=== PATIENT | female | born 1950 | race Caucasian/White ===

== ENCOUNTER 2020-07-14 14:54 | Outpatient (REF) | payer MEDICARE, OTHER, SELFPAY ==
[2020-07-14 15:58] LABS: Creatinine Urine 128.54 mg/dL; Microalbum/Creatinine Ratio Ur 50.5 ug/mg cr
== END 2020-07-14 14:55 | disposition home or self-care (01) ==
LOC: HO.LNP 14:54
PROVIDERS: Visit Provider Family Medicine
DX: I10 Essential (primary) hypertension (principal); E11.65 Type 2 diabetes mellitus with hyperglycemia
CPT/HCPCS: 82043

== ENCOUNTER 2020-10-04 07:16 | Outpatient (REF) | payer MEDICARE, SELFPAY ==
[2020-10-04 11:06] LABS: Alanine Aminotransferase 48 U/L (0-31); Albumin Level 4.2 g/dL (3.5-5.0); Alkaline Phosphatase 45 U/L (39-117); Anion Gap 13 (12-20); Aspartate Amino Transferase 31 U/L (5-31); Bilirubin Total 0.7 mg/dL (0.0-1.0); Blood Urea Nitrogen 15 mg/dL (9-16); Calcium 9.8 mg/dL (8.4-10.2); Carbon Dioxide 30 mmol/L (22-29); Chloride 101 mmol/L (96-108); Cholesterol 213 mg/dL; Estimated Glomerular Filt Rate > 60; Glucose Fasting 136 mg/dL (60-99); HDL Cholesterol 50 mg/dL; LDL Cholesterol Calculated 123 mg/dl; Potassium 4.3 mmol/L (3.3-5.1); Sodium 140 mmol/L (135-145); Total Protein 7.8 g/dL (6.5-8.0); Triglycerides 201 mg/dL
[2020-10-04 11:29] LABS: TSH reflex Free T4 1.95 uIU/mL (0.32-4.0)
== END 2020-10-04 07:17 | disposition home or self-care (01) ==
LOC: HO.WFDLDS 07:16
PROVIDERS: Visit Provider Family Medicine
DX: Z00.00 Encounter for general adult medical examination without abnormal findings (principal)
CPT/HCPCS: 36415; 80053; 80061; 84443

== ENCOUNTER 2020-12-28 18:09 | Outpatient (REF) | payer MEDICARE, SELFPAY ==
[2020-12-28 18:24] LABS: Glucose Urine UA NEG (NEG); Leukocyte Esterase Urine 3+ (NEG); Nitrite Urine NEG (NEG); Urine Blood NEG (NEG); Urine Ketones NEG (NEG); Urine Protein NEG (NEG-TRACE)
[2020-12-28 18:32] LABS: Appearance Urine CLEAR; Color Urine YELLOW
[2020-12-28 18:35] LABS: RBC Urine 0 /HPF (0); Squamous Epithelial Cell Urine 3+ /LPF
== END 2020-12-28 18:10 | disposition home or self-care (01) ==
LOC: HO.LNP 18:09
PROVIDERS: Visit Provider Family Medicine
DX: N39.0 Urinary tract infection, site not specified (principal)
CPT/HCPCS: 81001; 87086

== ENCOUNTER 2021-04-05 09:25 | Outpatient (REF) | payer MEDICARE, SELFPAY ==
--- NOTE | ~2021-04-05 | MM_ITS ---
EXAMINATION: MM SCREENING DIGITAL BREAST TOMOSYNTHESIS, BILATERAL CLINICAL INFORMATION: Screening. Asymptomatic. The lifetime risk of breast cancer based on the Tyrer-Cuzick Model is 3.2%. COMPARISON: Mammography: April 02, 2018 and studies dating back to November 11, 2009 TECHNIQUE: Digital breast tomosynthesis is performed in both the craniocaudal and mediolateral oblique views along with computer-aided detection (CAD). Synthesized 2D images are generated from the tomosynthesis. FINDINGS: There are scattered areas of fibroglandular density (ACR BI-RADS breast composition Category b). There are no significant masses, abnormal calcifications, or other abnormalities. MM/MM tomosynthesis screening BI IMPRESSION: There are no significant changes from prior study. ASSESSMENT: BI-RADS 1: Negative RECOMMENDATION: Routine annual mammography screening. This patient's information was entered into a reminder system with a target due date for their next mammogram.
== END 2021-04-05 09:26 | disposition home or self-care (01) ==
LOC: HO.MAMMO 09:25
PROVIDERS: Visit Provider Family Medicine
DX: Z12.31 Encounter for screening mammogram for malignant neoplasm of breast (principal)
CPT/HCPCS: 77063; 77067

== ENCOUNTER 2021-11-03 14:26 | Outpatient (REF) | payer MEDICARE, SELFPAY | END 2021-11-03 14:27 | disposition home or self-care (01) | LOC: HO.LNP 14:26 | PROVIDERS: Visit Provider Hospitalist | DX: N39.0 Urinary tract infection, site not specified (principal) | CPT/HCPCS: 87086; 87088; 87186 ==

== ENCOUNTER 2021-12-13 15:49 | Outpatient (REF) | payer MEDICARE, SELFPAY ==
[2021-12-14 10:56] LABS: Appearance Urine HAZY; Color Urine YELLOW; Glucose Urine UA NEG (NEG); Leukocyte Esterase Urine 3+ (NEG); Nitrite Urine NEG (NEG); PH 5.5 (5.0-8.0); Urine Blood 2+ (NEG); Urine Ketones NEG (NEG); Urine Protein NEG (NEG-TRACE)
[2021-12-14 11:11] LABS: Bacteria Urine TRACE /LPF; Squamous Epithelial Cell Urine TRACE /LPF
== END 2021-12-13 15:50 | disposition home or self-care (01) ==
LOC: HO.LAB 15:49
PROVIDERS: Visit Provider Family Medicine
DX: N39.0 Urinary tract infection, site not specified (principal); B96.1 Klebsiella pneumoniae [K. pneumoniae] as the cause of diseases classified elsewhere; Z16.11 Resistance to penicillins
CPT/HCPCS: 81001; 87086; 87088; 87186

== ENCOUNTER 2022-03-01 09:38 | Outpatient (REF) | payer MEDICARE, SELFPAY ==
[2022-03-01 11:26] LABS: Hematocrit 39.9 % (37.0-47.0); Hemoglobin 13.6 g/dl (12.0-16.0); Mean Corpuscular HGB Conc 34.1 g/dl (31.0-35.0); Mean Corpuscular Hemoglobin 30.4 pg (27.0-33.0); Mean Corpuscular Volume 89.1 fL (80.0-98.0); Platelet Count 190 X10*3/uL (160-400); Red Blood Count 4.48 X10*6/uL (4.20-5.50); Red Cell Distribution Width 13.2 % (11.0-16.0); White Blood Count 5.5 X10*3/uL (4.8-10.8)
[2022-03-01 11:38] LABS: Estimated Average Glucose 134 mg/dL; Hemoglobin A1c % 6.3 %
[2022-03-01 12:01] LABS: TSH reflex Free T4 1.47 uIU/mL (0.32-4.0)
[2022-03-01 12:05] LABS: Alanine Aminotransferase 68 U/L (0-31); Alkaline Phosphatase 43 U/L (39-117); Anion Gap 14 (12-20); Aspartate Amino Transferase 39 U/L (5-31); Bilirubin Total 0.4 mg/dL (0.0-1.0); Blood Urea Nitrogen 14 mg/dL (9-16); Calcium 9.5 mg/dL (8.4-10.2); Carbon Dioxide 28 mmol/L (22-29); Chloride 101 mmol/L (96-108); Cholesterol 203 mg/dL; Estimated Glomerular Filt Rate > 60; Glucose Fasting 148 mg/dL (60-99); HDL Cholesterol 49 mg/dL; LDL Cholesterol Calculated 121 mg/dl; Sodium 139 mmol/L (135-145); Total Protein 7.6 g/dL (6.5-8.0); Triglycerides 165 mg/dL
== END 2022-03-01 09:39 | disposition home or self-care (01) ==
LOC: HO.WFDLDS 09:38
PROVIDERS: Visit Provider Hospitalist
DX: Z00.00 Encounter for general adult medical examination without abnormal findings (principal); E11.9 Type 2 diabetes mellitus without complications
CPT/HCPCS: 36415; 80053; 80061; 83036; 84443; 85027

== ENCOUNTER 2022-03-30 11:57 | Outpatient (REF) | payer MEDICARE, SELFPAY ==
[2022-04-02 03:17] LABS: TS Negative Control Passed; TS Panel A 0; TS Panel B 0; TS Positive Control Passed; TSpotTB Negative (Negative)
== END 2022-03-30 11:58 | disposition home or self-care (01) ==
LOC: HO.WFDLDS 11:57
PROVIDERS: Visit Provider Dermatology
DX: Z11.1 Encounter for screening for respiratory tuberculosis (principal); L40.0 Psoriasis vulgaris
CPT/HCPCS: 36415; 86481

== ENCOUNTER 2022-05-29 | Outpatient (REF) | payer MEDICARE, SELFPAY ==
[2022-05-30 13:10] LABS: Influenza A PCR NEGATIVE (Negative); Influenza B PCR NEGATIVE (Negative); Resp Syncy Virus RNA Qual PCR NEGATIVE (Negative); SARS COV2 PCR INHOUSE NEGATIVE (Negative)
== END 2022-05-29 00:01 | disposition home or self-care (01) ==
LOC: HO.LNP
PROVIDERS: Visit Provider Family Medicine
DX: Z20.822 Contact with and (suspected) exposure to COVID-19 (principal)
CPT/HCPCS: 0241U

== ENCOUNTER 2022-06-16 11:49 | Outpatient (REF) | payer MEDICARE, SELFPAY ==
[2022-06-16 14:47] LABS: Appearance Urine Cloudy; Color Urine Yellow; Glucose Urine UA Negative (Negative); Leukocyte Esterase Urine Large (3+) (Negative); Nitrite Urine Negative (Negative); PH 5.5 (5.0-9.0); Specific Gravity - Urine 1.015 (1.005-1.025); UMIC TRIGGER UA YES; Urine Blood Trace (Negative); Urine Ketones Negative (Negative); Urine Protein Negative (Neg-Trace)
[2022-06-16 14:52] LABS: Bacteria Urine None Seen (None Seen); Hyaline Casts Urine 0-2 /LPF (0-2); RBC Urine 0-2 /HPF (0-2); WBC Urine >50 /HPF (0-5)
== END 2022-06-16 11:50 | disposition home or self-care (01) ==
LOC: HO.LAB 11:49
PROVIDERS: Visit Provider Family Medicine
DX: R30.0 Dysuria (principal)
CPT/HCPCS: 81001; 87086

== ENCOUNTER 2022-12-07 11:40 | Outpatient (REF) | payer MEDICARE, SELFPAY ==
--- NOTE | ~2022-12-07 | MM_ITS ---
EXAMINATION: MM SCREENING DIGITAL BREAST TOMOSYNTHESIS, BILATERAL CLINICAL INFORMATION: Screening. Asymptomatic. The lifetime risk of breast cancer based on the Tyrer-Cuzick Model is under 5%. COMPARISON: Mammography: 01/03/2021, 04/02/2018, 04/30/2014 TECHNIQUE: Digital breast tomosynthesis is performed in both the craniocaudal and mediolateral oblique views along with computer-aided detection (CAD). Synthesized 2D images are generated from the tomosynthesis. Technologist notes known sebaceous cyst left breast, not of concern by patient history. FINDINGS: There are scattered areas of fibroglandular density (ACR BI-RADS breast composition Category b). There is no significant mass or architectural abnormality or abnormal calcifications. Parenchymal pattern is similar to prior studies. Patient has known 1 cm sebaceous cyst posterior 7:30 left breast by patient history. Margins are circumscribed. No inflammatory changes. No coarsening of the Nba's ligaments. The axilla are unremarkable. MM/MM tomosynthesis screening BI IMPRESSION: No significant changes from prior exam. ASSESSMENT: BI-RADS 2: Benign RECOMMENDATION: Routine annual mammography screening. This patient's information was entered into a reminder system with a target due date for their next mammogram.
== END 2022-12-07 11:41 | disposition home or self-care (01) ==
LOC: HO.MAMMO 11:40
PROVIDERS: PCP Family Medicine; Visit Provider Family Medicine
DX: Z12.31 Encounter for screening mammogram for malignant neoplasm of breast (principal)
CPT/HCPCS: 77063; 77067

== ENCOUNTER 2023-05-01 14:54 | Outpatient (AMB) | payer MEDICARE, SELFPAY ==
--- NOTE | 2023-05-01 14:57 | A.OFFPC_ITS ---
Vital Signs 05/01/23 14:58 Height 5 ft 2 in Weight 158 lb 2 oz BMI 28.9 BP 140/82 H Blood Pressure Location Lt brachial Position Sitting Pulse 75 Pulse Source Pulse Oximeter Pulse Oximetry (%) 95 Oxygen Delivery Method Room Air Intake Visit Reasons: trans care from [facility] bp Intake Note: Patient is here to transfer care from [facility]. She would like to follow up on her health. Allergies Sulfacetamide Sodium Allergy (Unknown, Uncoded 05/01/23 15:03) skin burn when put on face Medication List - Last Reconciled 05/01/23 by Franki Chappell MD amlodipine 5 mg PO DAILY bisoprolol-hydrochlorothiazide 2.5-6.25 mg 2 tabs PO DAILY 90 days cyclosporine 0.05% (Restasis) 1 drp ophthalmic (eye) Q12H estradiol 10 mcg vaginal DAILY fesoterodine ER 4 mg PO DAILY fluconazole (Diflucan) 150 mg PO Q3D 2 doses fluticasone propionate 50 mcg/actuation (Flonase Allergy Relief) 1 spray intranasal .nightly lisinopril 20 mg PO DAILY multivitamin (Daily Multi-Vitamin tablet) 1 tab PO DAILY naproxen sodium (Aleve) PO DAILY nystatin 1 appl topical DAILY secukinumab (Cosentyx) 300 mg subcut Q4W Tobacco use date assessed: 05/01/23 Fall risk assessment: No Falls in past year Last assessed Fall Risk: 05/01/23 Dental Screening Dental Screen Date: 05/01/23 Did you have a dental visit in the last 12 months?: Yes Did you have a dental problem in the last 6 months where you did not have access to dental care?: No Was dental information given to patient?: Patient has dentist HPI trans care from [facility]/ [facility] bp HPI Details New patient/Transfer of Care Prior PCP:?Ludy Amador Last office visit/CPE: Acute issue(s): Cough -Pt states she is not feeling well. Diabetes -A1c today 6.7%. PMHx: Diabetes, Hypertension, Hyperlipidemia, IBS, Psoriasis SurgHx: Hysterectomy, GB SocHx: Quit cigs 2016. EtOH none. [facility]LY [facility] Medical History Diabetes type 2, uncontrolled HTN (hypertension) Surgical History History of hysterectomy History of oral surgery Family History Father Myocardial infarction Hypertension Mother Hypertension CVD (cardiovascular disease) Stroke TIA (transient ischemic attack) Social History Housing: House Alcohol intake: never Patient Tobacco Use Status: Former Tobacco user e-Cigarette/Vaping Use: Never Used Second Hand Smoke Exposure: No service: No Current occupational status: retired Current occupational exposures/hazards: No Cognitive needs: No Hearing needs: No Vision needs: No Questionnaire PHQ-9 Over the last 2 weeks, how often have you been bothered by any of the following problems? 1. Little interest or pleasure in doing things: not at all 2. Feeling down, depressed, or hopeless: not at all 3. Trouble falling or staying asleep, or sleeping too much: nearly every day 4. Feeling tired or having little energy: nearly every day 5. Poor appetite or overeating: nearly every day 6. Feeling bad about yourself - or that you are a failure or have let yourself or your family down: not at all 7. Trouble concentrating on things, such as reading the newspaper or watching television: not at all 8. Moving or speaking so slowly that other people could have noticed. Or the opposite - being so fidgety or restless that you have been moving around a lot more than usual: not at all 9. Thoughts that you would be better off or of hurting yourself in some way: not at all Total score: 9 Depression Screening Interpretation: Positive Depression Screening Done: Yes Source: Developed by Drs. Bryan Saldivar, Maddy Hilton, Nikos Brito and colleagues, with an educational harvey from [employer]. Thrive Questionnaire Date Thrive assessed: 05/01/23 I am a: Patient What is your living situation today?: I have a steady place to live Within the past 12 months, did the food you bought not last and you didn't have the money to get more?: Never true Within the past 12 months, did you worry whether your food would run out before you got money to buy more?: Never true Do you have trouble paying for medicines?: No Do you have trouble getting transportation to medical appointments?: No Do you have trouble paying your heating and electricity bill?: No Do you have trouble taking care of your child, family member or friend?: No Do you have trouble with day-to-day activities such as bathing, preparing meals, shopping, managing finances, etc.?: No Are you currently unemployed and looking for a job?: No Are you interested in more education?: No AUDIT C Alcohol Use Questionnaire (AUDIT-C) 1. How often do you have a drink containing alcohol?: Never 3. How often do you have six or more drinks on one occasion?: Never Total Score: 0 SABINO-7 AMB Questionnaire SABINO-7 Date SABINO - 7 assessed: 05/01/23 Feeling nervous, anxious, or on edge: 0 = Not at all Not being able to stop or control worryin = Not at all Worrying too much about different things: 0 = Not at all Trouble relaxin = Not at all Being so restless that it is hard to sit still: 0 = Not at all Becoming easily annoyed or irritable: 0 = Not at all Feeling afraid as if something awful might happen: 0 = Not at all Total SABINO-7 score (0-4 normal; 5-9 mild; 10-14 moderate; 15-21 severe): 0 Source: Developed by Drs. Bryan Saldivar, Maddy Hilton, Nikos Brito and colleagues, with an educational harvey from [employer]. Review of Systems Const Denies chills, Denies fatigue, Denies fever(s), Denies headache(s) and Denies weakness ENT Denies dizziness and Denies headache(s) Card Denies chest pain, Denies lightheadedness, Denies dyspnea and Denies other (Palpitations) Resp Denies cough, Denies dyspnea, Denies wheezing and Denies other ( shortness of breath) Musc Denies numbness and Denies tingling Neuro Denies dizziness, Denies headache(s), Denies numbness, Denies tingling, Denies paresthesias and Denies weakness Psych Denies anxiety and Denies depression Endo Denies fatigue Aller/Immun Denies wheezing Physical exam (Primary Care) Vital Signs: Last Vital Signs Pulse 75 05/01/23 14:58 BP 140/82 H 05/01/23 14:58 Pulse Ox 95 05/01/23 14:58 Oxygen Delivery Method Room Air 05/01/23 14:58 BMI result Body Mass Index 28.9 Tobacco/Smoking Status: Tobacco use Status Tobacco use date assessed 05/01/23 05/01/23 15:07 Patient Tobacco Use Status Former Tobacco user 05/01/23 15:01 e-Cigarette/Vaping Use Never Used 05/01/23 15:01 PHQ-9: PHQ-9 Score PHQ-9: Total score 9 05/01/23 15:13 Depression Screening Interpretation: Positive Thrive Assessment: Date of Thrive Assessment Date Thrive assessed 05/01/23 05/01/23 15:13 Const General: no acute distress and well developed Nutritional Appearance: well nourished Orientation/consciousness: patient oriented x3 HENMT Head: Yes normocephalic and Yes atraumatic Eyes General: appearance normal, both eyes and all related structures Pupils: Equal, round and reactive pupils present EOM: EOMs intact bilaterally Resp Other: Significant rhonchi and wheezing with pops and squeaks in lung kilpatrick bilaterally Auscultation: not clear to auscultation bilaterally Cardio Rate: regular rate Rhythm: regular rhythm Heart sounds: S1 normal heart sound present, S2 normal heart sound present, no gallops, no murmurs and no rubs Neuro General: patient oriented x3 and gait normal Cranial nerves: Yes Equal, round and reactive pupils present Psych Affect: normal affect Results AMB Hemoglobin A1c AMB Hemoglobin A1c 6.7 % Last Edit by Lucero Rosales CMA on 05/01/23 15:26 Assessment and Plan Assessment & Plan (1) Cough: Code(s): R05.9 - Cough, unspecified Plan: Ongoing?severe?cough?and?some?shortness?of?breath. Patient?also?notices?mild?fevers?for?the?past?couple?of?days. Significant?rhonchi?and?wheezing?with?pops?and?squeaks?in?lung?kilpatrick?bilaterall y Concern?for?pneumonia Check?chest?x-ray Start?cephalexin Finish?all?antibiotic?unless?there?is?a?problem.??Call?for?any?problems. We?will?follow-up?by?telemedicine?in?2?weeks?to?ensure?she?is?doing?better. (2) Diabetes type 2, controlled: Code(s): E11.9 - Type 2 diabetes mellitus without complications Plan: A1c?6.7%. Diet-controlled. Goal?is?less?than?7.0% Continue?diet?control (3) Abnormal lung sounds: Code(s): R09.89 - Other specified symptoms and signs involving the circulatory and respiratory systems Plan: As?above,?check?chest?x-ray (4) Essential hypertension: Code(s): I10 - Essential (primary) hypertension Plan: Blood?pressure?is?a?little?elevated?but?patient?is?ill We?will?follow?this (5) Hyperlipidemia: Code(s): E78.5 - Hyperlipidemia, unspecified Plan: Check?lipids?with?next?blood?draw Orders: Orders Comprehensive [place]. Panel Fast Today Z00.00 - Encounter for general adult medical examination without abnormal findings Complete Blood Count Auto Diff Today Z00.00 - Encounter for general adult medical examination without abnormal findings Lipid Panel Today Z00.00 - Encounter for general adult medical examination without abnormal findings UA and rflx microscopic Today Z00.00 - Encounter for general adult medical examination without abnormal findings TSH reflex Free T4 Today Z00.00 - Encounter for general adult medical examination without abnormal findings Vitamin D 25-OH Total Today E55.9 - Vitamin D deficiency, unspecified AMB Hemoglobin A1c Today Z13.9 - Encounter for screening, unspecified XR chest 2V Today R05.9 - Cough, unspecified, R09.89 - Other specified symptoms and signs involving the circulatory and respiratory systems Microalbumin, Random (w Creat) Today I10 - Essential (primary) hypertension Vitamin B12 and Folate Today E53.8 - Deficiency of other specified B group vitamins Medications: New cephalexin 500 mg PO Q12H 10 days 20 caps 0RF albuterol sulfate 90 mcg/actuation (ProAir HFA) 2 puffs inhalation Q4-6H 30 days PRN 8.5 grams 0RF shortness of breath or wheezing Coding Level of Care Code Est Pt Level 4 (11919) Diagnoses Cough R05.9 Diabetes type 2, controlled E11.9 Abnormal lung sounds R09.89 Essential hypertension I10 Hyperlipidemia E78.5
[2023-05-01 14:58] VITALS: BP 140/82; PULSE 75; O2SAT 95; BMI 28.9
== END 2023-05-01 15:46 | disposition home or self-care (01) ==
PROVIDERS: PCP Family Medicine; Visit Provider Family Medicine
DX: R05.9 Cough, unspecified (principal); E11.9 Type 2 diabetes mellitus without complications; R09.89 Other specified symptoms and signs involving the circulatory and respiratory systems; I10 Essential (primary) hypertension; E78.5 Hyperlipidemia, unspecified
CPT/HCPCS: 83036; 99214

== ENCOUNTER 2023-05-02 09:50 | Outpatient (REF) | payer MEDICARE, SELFPAY ==
--- NOTE | ~2023-05-02 | XR_ITS ---
EXAMINATION: XR CHEST CLINICAL INFORMATION: Cough COMPARISON: 01/26/2009, report only TECHNIQUE: 2 views of the chest were obtained. FINDINGS: No significant abnormality is noted involving the heart, lungs, mediastinum, bony thorax or soft tissues. Tiny calcification present in the right supraspinatus tendon. Degenerative changes are noted throughout the spine with scoliosis to the left. Surgical clips present in the gallbladder fossa. Minimal left basilar atelectasis. XR/XR chest 2V IMPRESSION: No acute intrathoracic disease. Incidental findings as described above.
== END 2023-05-02 09:51 | disposition home or self-care (01) ==
LOC: HO.XRAY 09:50
PROVIDERS: PCP Family Medicine; Visit Provider Family Medicine
DX: R05.9 Cough, unspecified (principal); R09.89 Other specified symptoms and signs involving the circulatory and respiratory systems
CPT/HCPCS: 71046

== ENCOUNTER 2023-05-04 13:57 | Outpatient (AMB) | payer MEDICARE, SELFPAY ==
--- NOTE | 2023-05-04 13:50 | A.OFFPC_ITS ---
Intake Visit Reasons: follow up xrays Allergies Sulfacetamide Sodium Allergy (Unknown, Uncoded 05/04/23 13:52) skin burn when put on face Tobacco use date assessed: 05/01/23 HPI follow up xrays HPI Details 72 y/o female presents to f/u chest x-ra y via telemedicine. Pt had a cough with abnormal lung sounds. Chest x-ray 05/02/23. Reviewed labs with pt. Chest x-ray showed no acute intrathoracic disease. FORMERLY [facility] Medical History Diabetes type 2, uncontrolled HTN (hypertension) Surgical History History of hysterectomy History of oral surgery Family History Father Myocardial infarction Hypertension Mother Hypertension CVD (cardiovascular disease) Stroke TIA (transient ischemic attack) Social History Housing: House Alcohol intake: never Patient Tobacco Use Status: Former Tobacco user e-Cigarette/Vaping Use: Never Used Second Hand Smoke Exposure: No service: No Current occupational status: retired Current occupational exposures/hazards: No Cognitive needs: No Hearing needs: No Vision needs: No Questionnaire Thrive Questionnaire Date Thrive assessed: 05/01/23 SABINO-7 AMB Questionnaire SABINO-7 Date SABINO - 7 assessed: 05/01/23 Source: Developed by Drs. Bryan Saldivar, Maddy Hilton, Nikos Brito and colleagues, with an educational harvey from [employer]. Review of Systems Const Denies chills, Denies fatigue, Denies fever(s), Denies headache(s) and Denies weakness ENT Denies dizziness and Denies headache(s) Card Denies dyspnea Resp Denies cough, Denies dyspnea, Denies wheezing and Denies other (shortness of breath) Musc Denies numbness and Denies tingling Neuro Denies dizziness, Denies headache(s), Denies numbness, Denies tingling and Denies weakness Psych Denies anxiety and Denies depression Endo Denies fatigue Aller/Immun Denies wheezing Physical exam (Primary Care) Tobacco/Smoking Status: Tobacco use Status Tobacco use date assessed 05/01/23 05/04/23 13:56 Patient Tobacco Use Status Former Tobacco user 05/04/23 13:56 e-Cigarette/Vaping Use Never Used 05/04/23 13:56 Thrive Assessment: Date of Thrive Assessment Date Thrive assessed 05/01/23 05/04/23 13:56 Telehealth Telehealth Location of provider rendering services: practice address Location of patient: address on file Patient Identification confirmed using: Name, : Yes Telehealth method: voice only Patient verbally consented to treatment: Yes Patient verbally consented to billing insurance company: Yes Patient informed of any privacy concerns related to visit: Yes Minutes spent on Phone/Video with Pt.: 11 Assessment and Plan Assessment & Plan (1) Cough: Code(s): R05.9 - Cough, unspecified Plan: Ongoing?co ugh?and?patient?had?significantly?abnormal?lung?sounds?consistent?with?pneumonia . Chest?x-ray?did?not?reveal?pneumonia However,?giving?patient's?symptoms?and?that?she?has?begun?feeling?a?small?amount ?better?after?3?days?on?cephalexin,?will?continue?this. Likely?occult?pneumonia?and?I?recommend?she?continue?antibiotic?until?complete. Had?sent?prednisone?as?well?and?she?will?begin?this. Continue?albuterol?inhaler?while?symptomatic She?will?get?a?chest?x-ray?at?the?end?of?her?antibiotics?course Will?follow-up?with?her?in?10-14?days. (2) Abnormal lung sounds: Code(s): R09.89 - Other specified symptoms and signs involving the circulatory and respiratory systems Plan: As?above Orders: Orders XR chest 2V Today R05.9 - Cough, unspecified Coding Level of Care Code Tele Est Pt Level 2 (31016) Diagnoses Cough R05.9 Abnormal lung sounds R09.89
== END 2023-05-04 15:54 | disposition home or self-care (01) ==
LOC: HO.HMGFM 13:57
PROVIDERS: PCP Family Medicine; Visit Provider Family Medicine
DX: R05.9 Cough, unspecified (principal); R09.89 Other specified symptoms and signs involving the circulatory and respiratory systems
CPT/HCPCS: 99442

== ENCOUNTER 2023-05-11 09:30 | Outpatient (REF) | payer MEDICARE, SELFPAY ==
--- NOTE | ~2023-05-11 | XR_ITS ---
EXAMINATION: XR CHEST CLINICAL INFORMATION: Cough COMPARISON: 05/02/2023 TECHNIQUE: 2 views of the chest were obtained. FINDINGS: The lungs are well-inflated. There is no gross pneumothorax. Heart size within normal limits. Advanced multilevel degenerative changes in the thoracic spine. Surgical clips in the right upper quadrant of the abdomen. No pleural effusion. No gross focal consolidation to suggest pneumonia. XR/XR chest 2V IMPRESSION: No evidence of pneumonia.
== END 2023-05-11 09:31 | disposition home or self-care (01) ==
LOC: HO.XRAY 09:30
PROVIDERS: PCP Family Medicine; Visit Provider Family Medicine
DX: R05.9 Cough, unspecified (principal)
CPT/HCPCS: 71046

== ENCOUNTER 2023-05-15 14:05 | Outpatient (AMB) | payer MEDICARE, SELFPAY ==
--- NOTE | 2023-05-15 14:01 | A.OFFPC_ITS ---
Intake Visit Reasons: [phone], Follow-up?occult?pneumonia Intake Note: Patient is following up regarding a chest xray from last week. Patient reports she is feeling better, using her inhaler still and has a productive cough. 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 Feeling?much?better.??Still?coughing?and?co ugh?is?rather?productive?after?albuterol?which?is?also?helping. [facility] Medical History Diabetes type 2, uncontrolled HTN (hypertension) Surgical History History of hysterectomy History of oral surgery Family History Father Myocardial infarction Hypertension Mother Hypertension CVD (cardiovascular disease) Stroke TIA (transient ischemic attack) Housing: House Alcohol intake: never Patient Tobacco Use Status: Former Tobacco user e-Cigarette/Vaping Use: Never Used Second Hand Smoke Exposure: No service: No Current occupational status: retired Current occupational exposures/hazards: No Cognitive needs: No Hearing needs: No Vision needs: No Questionnaire Thrive Questionnaire Date Thrive assessed: 05/01/23 SABINO-7 AMB Questionnaire SABINO-7 Date SABINO - 7 assessed: 05/01/23 Source: Developed by Drs. Bryan Saldivar, Maddy Hilton, Nikos Brito and colleagues, with an educational harvey from [employer]. Review of Systems Const Denies chills, Denies fatigue, Denies fever(s), Denies headache(s) and Denies weakness ENT Denies dizziness and Denies headache(s) Card Denies chest pain, Denies lightheadedness, Denies dyspnea and Denies other (Palpitations) Resp Reports cough (Productive?cough, improving), Denies dyspnea, Denies wheezing and Denies other ( shortness of breath) Musc Denies numbness and Denies tingling Neuro Denies dizziness, Denies headache(s), Denies numbness, Denies tingling, Denies paresthesias and Denies weakness Psych Denies anxiety and Denies depression Endo Denies fatigue Aller/Immun Denies wheezing Physical exam (Primary Care) Tobacco/Smoking Status: Tobacco use Status Tobacco use date assessed 05/01/23 05/15/23 14:05 Patient Tobacco Use Status Former Tobacco user 05/15/23 14:05 e-Cigarette/Vaping Use Never Used 05/15/23 14:05 Thrive Assessment: Date of Thrive Assessment Date Thrive assessed 05/01/23 05/15/23 14:05 Const Other: Telemedicine?encounter.??Audio?only.??No?exam Telehealth Telehealth Location of provider rendering services: practice address Location of patient: address on file Patient Identification confirmed using: Name, : Yes Telehealth method: voice only Patient verbally consented to treatment: Yes Patient verbally consented to billing insurance company: Yes Patient informed of any privacy concerns related to visit: Yes Minutes spent on Phone/Video with Pt.: 6 Assessment and Plan Assessment & Plan (1) Cough: Code(s): R05.9 - Cough, unspecified Plan: Improving?after?course?of?antibiotic?and?prednisone Probable?severe?bronchitis?but?possible?occult?pneumonia She?can?continue?albuterol?inhaler?for?now?as?she?is?improving. Call?or?return?to?office?if?worsens. Coding Level of Care Code Tele Est Pt Level 2 (75888) Diagnoses Cough R05.9
== END 2023-05-15 15:00 | disposition home or self-care (01) ==
PROVIDERS: PCP Family Medicine; Visit Provider Family Medicine
DX: R05.9 Cough, unspecified (principal)
CPT/HCPCS: 99441

== ENCOUNTER 2023-06-13 08:43 | Outpatient (AMB) | payer MEDICARE, SELFPAY ==
[2023-06-13 09:03] VITALS: BP 130/72; PULSE 68; O2SAT 95; BMI 28.9
--- NOTE | 2023-06-13 09:03 | AM.OFFWIN_ITS ---
Intake Vital Signs 06/13/23 09:03 Height 5 ft 2 in Weight 158 lb 4 oz BMI 28.9 BP 130/72 Blood Pressure Location Lt brachial Position Sitting Pulse 68 Pulse Source Pulse Oximeter Pulse Oximetry (%) 95 Oxygen Delivery Method Room Air Intake Visit Reasons: ongoing cough/phlem Intake Note: Patient is here today for coughing, wheezing, feeling worse, no fever or chills, no appetite. 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 Required: No Head Grinder: Not Required per policy Accompanied by: Self / Same As Patient Allergies clindamycin Allergy (Mild, Uncoded 06/13/23 09:48) Diarrhea Sulfacetamide Sodium Allergy (Unknown, Uncoded 06/13/23 09:04) skin burn when put on face Medication List - Last Reconciled 06/13/23 by Lucrecia Sanchez, [facility]- albuterol sulfate 90 mcg/actuation (ProAir HFA) 2 puffs inhalation Q4-6H PRN 30 days amlodipine 5 mg PO DAILY bisoprolol-hydrochlorothiazide 2.5-6.25 mg 2 tabs PO DAILY 90 days cyclosporine 0.05% (Restasis) 1 drp ophthalmic (eye) Q12H fesoterodine ER 4 mg PO DAILY fluticasone propionate 50 mcg/actuation (Flonase Allergy Relief) 1 spray intranasal .nightly lisinopril 20 mg PO DAILY multivitamin (Daily Multi-Vitamin tablet) 1 tab PO DAILY secukinumab (Cosentyx) 300 mg subcut Q4W Do you need a note to return to daycare/school/sports/work: No HPI HPI Comments History of Present Illness Details Here today w/ continued cough since 03/2023 was tx for presumed PNA/bronchitis Records reviewed Cough is productive, with lots of phlegm, blood tinged sputum last night. using albuterol however this is causing dry mouth; doesnt feel like this is really working well + wt loss, 5 lbs since illness no appetite former smoker no lung ca survellience denies fever, chills, ear pain, sore throat. PFSH Medical History Diabetes type 2, uncontrolled HTN (hypertension) Surgical History History of hysterectomy History of oral surgery Family History Father Myocardial infarction Hypertension Mother Hypertension CVD (cardiovascular disease) Stroke TIA (transient ischemic attack) Social History Housing: House Alcohol intake: never Patient Tobacco Use Status: Former Tobacco user e-Cigarette/Vaping Use: Never Used Second Hand Smoke Exposure: No service: No Current occupational status: retired Current occupational exposures/hazards: No Cognitive needs: No Hearing needs: No Vision needs: No Review of Systems Const All systems reviewed & are unremarkable except as noted in HPI and below Physical Exam Vital Signs: Last Vital Signs Pulse 68 06/13/23 09:03 BP 130/72 06/13/23 09:03 Pulse Ox 95 06/13/23 09:03 Oxygen Delivery Method Room Air 06/13/23 09:03 BMI result Body Mass Index 28.9 Const Other: awake alert mildly ill appearing conjuntiva injected bilat TM bulging with loss of landmarks on L, TM intact w/ mild serous effusion on R Sinuses nontender bilat, turbinates pale, mildly edematous on L No AC adenopathy RRR LS dim, ins/exp wheezes throughout; after duoneb inhaler, tolerated well, LS with increased airflow throughout, reports feels her breathing is better; cont w/ ins/exp wheeze throughout albeit better than before Office Procedures Nebulizer Treatment Nebulizer Treatment 28814-Brablafkd/MDI RX initial, or Nebulizer Subsequent Treatment Office Meds ipratropium 0.5 mg-albuterol 3 mg (2.5 mg base)/3 mL nebulization valerien Performing Provider: CRAIG Thomas Performing Location: [facility] Administered by: CRAIG Thomas on 06/13/23 10:24 Dose Route Admin Location Dispensed Lot Number Expiration Date NDC Procedures Analyst 3 mL inhalation 3 mL [id number] 03/25/24 09441-034-07 [employer] Assessment & Plan Assessment & Plan (1) Wheezing: Code(s): R06.2 - Wheezing Plan: . (2) Abnormal lung sounds: Code(s): R09.89 - Other specified symptoms and signs involving the circulatory and respiratory systems Plan: . (3) Cough: Code(s): R05.9 - Cough, unspecified Qualifiers: Cough type: chronic Qualified Code(s): R05.3 - Chronic cough Plan: . (4) Otitis media, left: Code(s): H66.92 - Otitis media, unspecified, left ear Qualifiers: Chronicity: acute Recurrence: non-recurrent Otitis media type: suppurative Spontaneous tympanic membrane rupture: without spontaneous rupture Qualified Code(s): H66.002 - Acute suppurative otitis media without spontaneous rupture of ear drum, left ear Plan: cont flonase (5) Cough with hemoptysis: Code(s): R04.2 - Hemoptysis Plan: in the setting of illness since 03/2023; blood tinged; former smoker; admit wt loss in the setting of this illness. if cont and/or wt loss cont, rec further assessment. Orders: Orders AMB Nebulizer Treatment Today R06.2 - Wheezing Medications: New budesonide 90 mcg/actuation 1 inh inhalation Q12H 1 month 1 ea 0RF Patient Instructions: start pulmicort BID, rinse mouth after use, use alb PRN. f/u with PCP as scheduled to see if this is working. your lung sounds improved greatly after the duoneb in the office Coding Level of Care Code Est Pt Level 4 (59768) Diagnoses Wheezing R06.2 Abnormal lung sounds R09.89 Chronic cough R05.3 Cough type: chronic Non-recurrent acute suppurative otitis media of left ear without spontaneous rupture of tympanic membrane H66.002 Chronicity: acute Recurrence: non-recurrent Otitis media type: suppurative Spontaneous tympanic membrane rupture: without spontaneous rupture Cough with hemoptysis R04.2 CPT Codes Nebulizer Treatment - Nebulizer Treatment, initial or subsequent: 54915- Nebulizer/MDI RX initial, or Nebulizer Subsequent Treatment ([id number])
== END 2023-06-13 11:31 | disposition home or self-care (01) ==
PROVIDERS: PCP Family Medicine; Visit Provider Nurse Practitioner Family
DX: R06.2 Wheezing (principal); R09.89 Other specified symptoms and signs involving the circulatory and respiratory systems; R05.3 Chronic cough; H66.002 Acute suppurative otitis media without spontaneous rupture of ear drum, left ear; R04.2 Hemoptysis
CPT/HCPCS: 94640; 99214; J7620

== ENCOUNTER 2023-06-13 10:26 | Outpatient (REF) | payer MEDICARE, SELFPAY ==
[2023-06-13 13:20] LABS: MANUAL DIFF FLAG NO
[2023-06-13 13:31] LABS: Basophils Absolute Auto 0.1 X10*3/uL (0.0-0.2); Basophils Percent Auto 0.6 % (0-2); Eosinophils Absolute Auto 0.1 X10*3/uL (0.0-0.4); Eosinophils Percent Auto 1.3 % (0-4); Hematocrit 43.5 % (37.0-47.0); Hemoglobin 14.4 g/dl (12.0-16.0); Imm Gran Abs Auto 0.02 X10*3/uL (0.00-0.03); Imm Gran Pct Auto 0.2 % (0.0-0.4); Lymphocytes Absolute Auto 3.3 X10*3/uL (1.2-4.9); Lymphocytes Percent Auto 36.9 % (20-40); Mean Corpuscular HGB Conc 33.1 g/dl (31.0-35.0); Mean Corpuscular Hemoglobin 29.7 pg (27.0-33.0); Mean Corpuscular Volume 89.7 fL (80.0-98.0); Mean Platelet Volume 8.9 fL (9.4-12.3); Monocytes Absolute Auto 0.7 X10*3/uL (0.1-1.2); Monocytes Percent Auto 7.4 % (2-11); Neutrophils Absolute Auto 4.8 x10*3/uL (2.0-8.3); Neutrophils Percent Auto 53.6 % (45-73); Platelet Count 243 X10*3/uL (160-400); Red Blood Count 4.85 X10*6/uL (4.20-5.50); Red Cell Distribution Width 12.6 % (11.0-16.0)
[2023-06-13 13:45] LABS: Appearance Urine Cloudy; Color Urine Yellow; Glucose Urine UA Negative (Negative); Leukocyte Esterase Urine Moderate (2+) (Negative); Nitrite Urine Negative (Negative); PH 6.5 (5.0-9.0); Specific Gravity - Urine 1.015 (1.005-1.025); UMIC TRIGGER UA YES; Urine Blood Negative (Negative); Urine Ketones Negative (Negative); Urine Protein Negative (Neg-Trace)
[2023-06-13 13:51] LABS: Bacteria Urine 3+ (None Seen); Hyaline Casts Urine 0-2 /LPF (0-2); RBC Urine 0-2 /HPF (0-2); WBC Urine >50 /HPF (0-5)
[2023-06-13 13:58] LABS: Alanine Aminotransferase 68 U/L (0-31); Albumin Level 4.2 g/dL (3.5-5.0); Alkaline Phosphatase 51 U/L (39-117); Anion Gap 15 (12-20); Aspartate Amino Transferase 45 U/L (5-31); Bilirubin Total 0.8 mg/dL (0.0-1.0); Blood Urea Nitrogen 11 mg/dL (9-16); Calcium 10.1 mg/dL (8.4-10.2); Carbon Dioxide 29 mmol/L (22-29); Chloride 98 mmol/L (96-108); Cholesterol 209 mg/dL (<200); Estimated Glomerular Filt Rate > 60; Glucose Fasting 142 mg/dL (60-99); HDL Cholesterol 51 mg/dL (>40); LDL Cholesterol Calculated 130 mg/dL (<100); Potassium 3.5 mmol/L (3.3-5.1); Sodium 138 mmol/L (135-145); Total Protein 8.3 g/dL (6.5-8.0); Triglycerides 140 mg/dL (<150)
[2023-06-13 14:00] LABS: Microalbum/Creatinine Ratio Ur 5.1 ug/mg cr (<30)
[2023-06-13 14:16] LABS: TSH reflex Free T4 0.84 uIU/mL (0.32-4.0); Vitamin D 25-OH Total 58.5 ng/mL (>30)
[2023-06-13 14:17] LABS: Folate 12.8 ng/mL (> or = 4.0); Vitamin B12 591 pg/mL (200-900)
== END 2023-06-13 10:27 | disposition home or self-care (01) ==
LOC: HO.WFDLDS 10:26
PROVIDERS: Visit Provider Family Medicine
DX: Z00.00 Encounter for general adult medical examination without abnormal findings (principal); I10 Essential (primary) hypertension; E53.8 Deficiency of other specified B group vitamins; E55.9 Vitamin D deficiency, unspecified
CPT/HCPCS: 36415; 80053; 80061; 81001; 82043; 82306; 82570; 82607; 82746; 84443; 85025

== ENCOUNTER 2023-07-05 13:53 | Outpatient (AMB) | payer MEDICARE, SELFPAY ==
--- NOTE | 2023-07-05 14:02 | MHC.PC.OV ---
Vital Signs 07/05/23 14:06 Height 5 ft 2 in Weight 157 lb 6 oz BMI 28.8 BP 130/60 Blood Pressure Location Lt brachial Pulse 67 Pulse Source Pulse Oximeter Temp 97.6 F Temp Source Oral Pulse Oximetry (%) 97 Oxygen Delivery Method Room Air Intake Visit Reasons: Extended?exam?with?f/u?labs?and?health?maintenance Intake Note: Patient is here for extended exam, and has been sick since March. Allergies clindamycin Allergy (Mild, Uncoded 07/05/23 14:10) Diarrhea Sulfacetamide Sodium Allergy (Unknown, Uncoded 07/05/23 14:10) skin burn when put on face Tobacco use date assessed: 07/05/23 HPI Extended?exam?with?f/u?labs?and?health?maintenance HPI Details 73 y/o female presents for an extended exam with f/u labs and health maintenance. Labs were drawn 06/13/23. Reviewed labs with pt. Elevated fasting glucose of 142. Last A1c 05/01/23 6.7%. She is not on any medications for diabetes. Elevated liver enzymes - AST 45 and ALT 68. TC 209. LDL 130. HDL 51. Blood pressure today 130/60. She is on lisinopril 20mg, amlodipine 5mg, bisoprolol-HCTZ 2.5-6.25mg 2 tabs daily. Pt reports she has been feeling unwell since March, reporting continued cough. [facility] Medical History Diabetes type 2, uncontrolled HTN (hypertension) Surgical History History of hysterectomy History of oral surgery Family History Father Myocardial infarction Hypertension Mother Hypertension CVD (cardiovascular disease) Stroke TIA (transient ischemic attack) Social History Housing: House Alcohol intake: never Patient Tobacco Use Status: Former Tobacco user e-Cigarette/Vaping Use: Never Used Second Hand Smoke Exposure: No service: No Current occupational status: retired Current occupational exposures/hazards: No Cognitive needs: No Hearing needs: No Vision needs: No Questionnaire Thrive Questionnaire Date Thrive assessed: 05/01/23 SABINO-7 AMB Questionnaire SABINO-7 Date SABINO - 7 assessed: 05/01/23 Source: Developed by Drs. Bryan Saldivar, Maddy Hilton, Nikos Brito and colleagues, with an educational harvey from [employer]. Review of Systems Const Denies chills, Denies fatigue, Denies fever(s), Denies headache(s) and Denies weakness Eyes Denies change in vision ENT Denies dizziness, Denies headache(s), Denies hearing loss, Denies nasal congestion, Denies sinus pain, Denies sinus pressure and Denies sore throat Card Denies chest pain, Denies lightheadedness, Denies dyspnea and Denies other (palpitations) Resp Reports cough, Denies dyspnea and Denies wheezing GI Denies abdominal pain, Denies melena, Denies hematochezia, Denies change in bowel habits, Denies dyspepsia and Denies nausea Denies hematuria and Denies dysuria Musc Denies abnormal gait, Denies myalgias, Denies arthralgias, Denies numbness and Denies tingling Skin/Breast Denies rash, Denies unusual bruising and Denies wounds Neuro Denies abnormal gait, Denies dizziness, Denies headache(s), Denies memory loss, Denies numbness, Denies Sensory deficit (Neuro), Denies tingling and Denies weakness Psych Denies anxiety, Denies depression and Denies memory loss Endo Denies cold intolerance, Denies fatigue, Denies heat intolerance, Denies polydipsia and Denies polyuria Alvaro/Lymph Denies easy bleeding and Denies easy bruising Aller/Immun Denies wheezing Physical exam (Primary Care) Vital Signs: Last Vital Signs Temp 97.6 F 07/05/23 14:06 Pulse 67 07/05/23 14:06 BP 130/60 07/05/23 14:06 Pulse Ox 97 07/05/23 14:06 Oxygen Delivery Method Room Air 07/05/23 14:06 BMI result Body Mass Index 28.8 Tobacco/Smoking Status: Tobacco use Status Tobacco use date assessed 07/05/23 07/05/23 14:16 Patient Tobacco Use Status Former Tobacco user 07/05/23 14:03 e-Cigarette/Vaping Use Never Used 07/05/23 14:03 Thrive Assessment: Date of Thrive Assessment Date Thrive assessed 05/01/23 07/05/23 14:03 Const General: no acute distress, well developed, alert and awake Nutritional Appearance: well nourished Orientation/consciousness: patient oriented x3 HENMT Head: Yes normocephalic and Yes atraumatic Ears: hearing grossly normal bilaterally and TM's normal bilaterally General nose exam: Normal external nose present and Normal nares present Mouth: Normal oral and palatal mucosa present and moist mucous membranes Teeth and gingiva: dentition normal Throat: Yes posterior oropharynx normal Eyes General: appearance normal, both eyes and all related structures Pupils: Equal, round and reactive pupils present and Pupil accommodation reflex normal EOM: EOMs intact bilaterally Neck Neck: Yes normal visual inspection, Yes no lymphadenopathy and Yes trachea midline Thyroid: Thyroid normal Carotids: no bruits Lymphatic: no lymphadenopathy noted Chest Chest palpation & inspection: normal inspection of the chest Resp Effort & Inspection: normal respiratory effort Auscultation: clear to auscultation bilaterally Cardio Rate: regular rate Rhythm: regular rhythm Heart sounds: S1 normal heart sound present, S2 normal heart sound present, no gallops, no murmurs and no rubs Bruits: no abdominal aortic bruits and no carotid bruits GI Palpation (GI): No Abdominal aortic bruit present, Soft to palpation, nontender, No hepatosplenomegaly present and No Rebound tenderness present Auscultation: normal bowel sounds General: Yes no CVA tenderness Back/Spine/Pelvis Back: no CVA tenderness Cervical Spine: cervical ROM normal and No Cervical spine tenderness Thoracic/Lumbar Spine: thoraco-lumbar ROM normal, No pain with thoraco-lumbar ROM, No thoracic spinal tenderness and No lumbar spinal tenderness Skin Lesions: no lesions Rashes: no rashes Trauma: no lacerations or abrasions Wounds: no wounds Nails: normal Neuro General: patient oriented x3 Cranial nerves: Yes Equal, round and reactive pupils present Cognition (Neuro): normal cognition Gait exam (Neuro): Normal gait present Motor exam (neuro): 5/5 motor strength present throughout Sensory Exam: No Sensory deficit (Neuro) Deep tendon reflexes (DTR's): Right patellar reflex intensity grade: 2+ and Left patellar reflex intensity grade: 2+ Extrem General: Yes normal to inspection and No edema Psych Appearance: grossly normal Affect: normal affect Attitude: cooperative Thought process: Normal thought process present Assessment and Plan Assessment & Plan (1) Essential hypertension: Code(s): I10 - Essential (primary) hypertension Plan: Blood?pressure?is?fairly?well?controlled.??Goal?is?less?than?140/90 Continue?current?medications (2) Diabetes type 2, controlled: Code(s): E11.9 - Type 2 diabetes mellitus without complications Plan: Patient?had?been?diet?controlled?but?her?blood?pressure?continues?to?rise. A1c?still?below?7.0%?tested?in?April. Will?have?her?return?in?a?couple?of?months?and?follow-up?diabetes Encouraged?diabetic?diet (3) Elevated liver enzymes: Code(s): R74.8 - Abnormal levels of other serum enzymes Plan: Likely?secondary?to?fatty?liver?disorder Encouraged?weight?loss She?has?had?recurrent?elevations?in?her?liver?enzymes.??Checking?ultrasound?with?elastography (4) Cough: Code(s): R05.9 - Cough, unspecified Qualifiers: Cough type: chronic Qualified Code(s): R05.3 - Chronic cough Plan: Ongoing?moderately?severe?cough?and?secretions. Treating?with?Z-Adriano?and?prednisone?for?bronchitis. This?has?been?ongoing?for?several?months.??Referring?her?to?pulmonology (5) Bacteria in urine: Code(s): R82.71 - Bacteriuria Plan: Will?repeat?dip?and?culture.??If?persistent?bacteriuria?and?or?other?abnormality?suggestive?of?UTI,?will?consider?treatment (6) Breast cancer screening by mammogram: Code(s): Z12.31 - Encounter for screening mammogram for malignant neoplasm of breast Plan: Mammogram?in?November?was?negative (7) Screening for colon cancer: Code(s): Z12.11 - Encounter for screening for malignant neoplasm of colon Plan: She?says?she?has?never?had?an?abnormal?colonoscopy. Ordered?Cologuard?test (8) Adult general medical exam: Code(s): Z00.00 - Encounter for general adult medical examination without abnormal findings Plan: 73-year-old?female?presents?for?an?extended?exam Orders: Orders US abdomen rosenthal w elastography Today R74.8 - Abnormal levels of other serum enzymes UA and rflx microscopic Today R82.71 - Bacteriuria AMB Urinalysis Dipstick Today R82.71 - Bacteriuria Referrals Pulmonology Referral R05.3 - Chronic cough Cologuard Test Z12.11 - Encounter for screening for malignant neoplasm of colon, Z12.12 - Encounter for screening for malignant neoplasm of rectum Coding Level of Care Code Est Pt Level 4 (13283) Diagnoses Essential hypertension I10 Diabetes type 2, controlled E11.9 Elevated liver enzymes R74.8 Chronic cough R05.3 Cough type: chronic Bacteria in urine R82.71 Breast cancer screening by mammogram Z12.31 Screening for colon cancer Z12.11 Adult general medical exam Z00.00
[2023-07-05 14:06] VITALS: BP 130/60; PULSE 67; TEMP 36.4; O2SAT 97; BMI 28.8
== END 2023-07-05 15:17 | disposition home or self-care (01) ==
PROVIDERS: PCP Family Medicine; Visit Provider Family Medicine
DX: I10 Essential (primary) hypertension (principal); E11.9 Type 2 diabetes mellitus without complications; R74.8 Abnormal levels of other serum enzymes; R05.3 Chronic cough; R82.71 Bacteriuria; Z12.31 Encounter for screening mammogram for malignant neoplasm of breast; Z12.11 Encounter for screening for malignant neoplasm of colon; Z00.00 Encounter for general adult medical examination without abnormal findings
CPT/HCPCS: 81002; 99214

== ENCOUNTER 2023-07-05 14:53 | Outpatient (REF) | payer MEDICARE, SELFPAY ==
[2023-07-05 18:59] LABS: Appearance Urine Clear; Color Urine Yellow; Glucose Urine UA Negative (Negative); Leukocyte Esterase Urine Large (3+) (Negative); Nitrite Urine Negative (Negative); UMIC TRIGGER UA YES; Urine Blood Negative (Negative); Urine Ketones Negative (Negative); Urine Protein Negative (Neg-Trace)
[2023-07-05 19:01] LABS: Bacteria Urine Trace (None Seen); Hyaline Casts Urine 0-2 /LPF (0-2); RBC Urine 0-2 /HPF (0-2); Squamous Epithelial Cell Urine 0-2 /HPF (0-2); WBC Urine >50 /HPF (0-5)
== END 2023-07-05 14:54 | disposition home or self-care (01) ==
LOC: HO.LAB 14:53
PROVIDERS: Visit Provider Family Medicine
DX: R82.71 Bacteriuria (principal)
CPT/HCPCS: 81001

== ENCOUNTER 2023-07-26 13:57 | Outpatient (AMB) | payer MEDICARE, SELFPAY ==
[2023-07-26 14:07] VITALS: BP 132/78; PULSE 80; O2SAT 98; BMI 30.7
--- NOTE | 2023-07-26 14:07 | A.OFFPC_ITS ---
Vital Signs 07/26/23 14:07 Height 5 ft 2 in Weight 168 lb BMI 30.7 BP 132/78 Blood Pressure Location Lt brachial Position Sitting Pulse 80 Pulse Source Pulse Oximeter Pulse Oximetry (%) 98 Oxygen Delivery Method Room Air Intake Visit Reasons: [facility] Intake Note: Patient is here to follow up on [facility] for fevers. Allergies clindamycin Allergy (Mild, Uncoded 07/26/23 14:08) Diarrhea Sulfacetamide Sodium Allergy (Unknown, Uncoded 07/26/23 14:08) skin burn when put on face Medication List - Last Reconciled 07/26/23 by Franki Chappell MD albuterol sulfate 90 mcg/actuation (ProAir HFA) 2 puffs inhalation Q4-6H PRN 30 days amlodipine 5 mg PO DAILY bisoprolol-hydrochlorothiazide 2.5-6.25 mg 2 tabs PO DAILY 90 days budesonide 90 mcg/actuation 1 inh inhalation Q12H 1 month cyclosporine 0.05% (Restasis) 1 drp ophthalmic (eye) Q12H fesoterodine ER 4 mg PO DAILY fluticasone propionate 50 mcg/actuation (Flonase Allergy Relief) 1 spray intranasal .nightly lisinopril 20 mg PO DAILY multivitamin (Daily Multi-Vitamin tablet) 1 tab PO DAILY prednisone 40 mg (2 x 20 mg) PO DAILY 5 days secukinumab (Cosentyx) 300 mg subcut Q4W Tobacco use date assessed: 07/26/23 Fall risk assessment: No Falls in past year Last assessed Fall Risk: 07/26/23 Dental Screening Dental Screen Date: 07/26/23 HPI [facility] discharge HPI Details 73 y/o female presents to f/u [facility] d ischarge. Had presented for fevers and MRI of lumbar spine to look for spinal epidural abscess. MRI lumbar spine V rad report w/o any concerns for spinal epidural abscess. On whole spinal cord screen there was cord signal abnormality at cervical level with suggestion of MRI of cervical spine. Pt reports she had a significant fever x5 days and was an inpatient for multiple days. Pt reports numbness/tingling of his hands. [facility] Medical History Diabetes type 2, uncontrolled HTN (hypertension) Surgical History History of hysterectomy History of oral surgery Family History Father Myocardial infarction Hypertension Mother Hypertension CVD (cardiovascular disease) Stroke TIA (transient ischemic attack) Social History Housing: House Alcohol intake: never Patient Tobacco Use Status: Former Tobacco user e-Cigarette/Vaping Use: Never Used Second Hand Smoke Exposure: No service: No Current occupational status: retired Current occupational exposures/hazards: No Cognitive needs: No Hearing needs: No Vision needs: No Questionnaire Thrive Questionnaire Date Thrive assessed: 05/01/23 SABINO-7 AMB Questionnaire SABINO-7 Date SABINO - 7 assessed: 05/01/23 Source: Developed by Drs. Bryan Saldivar, Maddy Hilton, Nikos Brito and colleagues, with an educational harvey from [employer]. Review of Systems Const Denies chills, Denies fatigue, Denies fever(s), Denies headache(s) and Denies weakness ENT Denies dizziness and Denies headache(s) Card Denies chest pain, Denies lightheadedness, Denies dyspnea and Denies other (Palpitations) Resp Denies cough, Denies dyspnea, Denies wheezing and Denies other ( shortness of breath) Musc Denies numbness and Denies tingling Neuro Denies dizziness, Denies headache(s), Denies numbness, Denies tingling, Denies paresthesias and Denies weakness Psych Denies anxiety and Denies depression Endo Denies fatigue Aller/Immun Denies wheezing Physical exam (Primary Care) Vital Signs: Last Vital Signs Pulse 80 07/26/23 14:07 BP 132/78 07/26/23 14:07 Pulse Ox 98 07/26/23 14:07 Oxygen Delivery Method Room Air 07/26/23 14:07 BMI result Body Mass Index 30.7 Tobacco/Smoking Status: Tobacco use Status Tobacco use date assessed 07/26/23 07/26/23 14:11 Patient Tobacco Use Status Former Tobacco user 07/26/23 14:11 e-Cigarette/Vaping Use Never Used 07/26/23 14:11 Thrive Assessment: Date of Thrive Assessment Date Thrive assessed 05/01/23 07/26/23 14:11 Const General: no acute distress and well developed Nutritional Appearance: well nourished Orientation/consciousness: patient oriented x3 [facility] Head: Yes normocephalic and Yes atraumatic Eyes General: appearance normal, both eyes and all related structures Pupils: Equal, round and reactive pupils present EOM: EOMs intact bilaterally Resp Effort & Inspection: normal respiratory effort Auscultation: clear to auscultation bilaterally Cardio Rate: regular rate Rhythm: regular rhythm Heart sounds: S1 normal heart sound present, S2 normal heart sound present, no gallops, no murmurs and no rubs Neuro General: patient oriented x3 and gait normal Cranial nerves: Yes Equal, round and reactive pupils present Psych Affect: normal affect Assessment and Plan Assessment & Plan (1) Abnormal MRI, spinal cord: Code(s): R90.89 - Other abnormal findings on diagnostic imaging of central nervous system Plan: Spinal?cord?survey?noted?abnormal?signal?at?cervical?spine. Patient?does?have?complaints?of?numbness?in?bilateral?hands?and?fingers?with?neg ative?Phalen's?testing; does?not?appear?to?be?carpal?tunnel?syndrome. Check?MRI?cervical?spine (2) Abnormal MRI, spinal cord: Code(s): R90.89 - Other abnormal findings on diagnostic imaging of central nervous system (3) Dry mouth: Code(s): R68.2 - Dry mouth, unspecified Plan: Increase?hydration (4) Essential hypertension: Code(s): I10 - Essential (primary) hypertension Plan: Patient?had?been?switched?to ?propranolol?from?her?bisoprolol?hydrochlorothiazide?due?to?hypotension?in?the?h ospital. Patient?had?apparently?been?septic?though?no?source?of?infection?was?identified. Blood?pressure?fairly?well?con trolled?though?she?notes?some?swelling?in?bilateral?feet?and?ankles Will?resume?her?bisoprolol-hydrochlorothiazide She?has?mildly?dry?mouth?and?does?not?like?to?drink?water?but?I?have?encouraged? her?to?do?so. Close?follow-up?next?week?to?evaluate?blood?pressure?then?fluid?status. (5) Numbness and tingling of hand: Code(s): R20.0 - Anesthesia of skin; R20.2 - Paresthesia of skin Plan: Abnormal?signal?seen?on?MRI?at?cervical?region?and?patient?has?numbness?of?bilat eral?hands?without?convincing?testing?for?carpal?tunnel?syndrome. Checking?MRI?cervical?spine?to?evaluate Orders: Orders MR cervical spine wo/w con Today R20.0 - Anesthesia of skin, R20.2 - Paresthesia of skin, R90.89 - Other abnormal findings on diagnostic imaging of central nervous system Coding Level of Care Code Est Pt Level 4 (00491) Diagnoses Abnormal MRI, spinal cord R90.89 Dry mouth R68.2 Essential hypertension I10 Numbness and tingling of hand R20.0; R20.2
== END 2023-07-26 15:40 | disposition home or self-care (01) ==
PROVIDERS: PCP Family Medicine; Visit Provider Family Medicine
DX: R90.89 Other abnormal findings on diagnostic imaging of central nervous system (principal); R68.2 Dry mouth, unspecified; I10 Essential (primary) hypertension; R20.0 Anesthesia of skin; R20.2 Paresthesia of skin
CPT/HCPCS: 99214

== ENCOUNTER 2023-08-03 10:00 | Outpatient (REF) | payer MEDICARE, SELFPAY ==
--- NOTE | ~2023-08-03 | US_ITS ---
EXAMINATION: US ABDOMEN LIMITED WITH LIVER ELASTOGRAPHY CLINICAL INFORMATION: Abnormal LFTs. COMPARISON: None available. TECHNIQUE: Real-time imaging of the abdominal viscera. Noninvasive ultrasound liver fibrosis assessment is performed using Boaz ElastPQ point quantification shear wave elastography (2D-SWE) with a C5-2 MHz transducer. Multiple elastography samples are obtained. FINDINGS: PANCREAS: Visualized entire pancreas slightly echogenic. No focal lesion or enlargement. LIVER: The liver demonstrates normal size, contour and increased echogenicity. No focal lesion seen. There is mild intrahepatic ductal dilatation. The right lobe measures 16.1 cm in length. The left lobe measures 12.9 cm in length. Portal flow is hepatopedal in middle portal vein. Shear wave liver elastography median stiffness is 1.52 m/s (reference: normal median stiffness is 1.3 m/s or less). IQR/median stiffness to assess sampling precision is 0.01 (reference: good quality data set is IQR/median stiffness of 0.15 or less). GALLBLADDER: Normal. The gallbladder is physiologically distended without evidence of stones, sludge, polyps, wall thickening or pericholecystic fluid. COMMON BILE DUCT: Normal in caliber measuring 1.0 cm in diameter. RIGHT KIDNEY: Normal. No hydronephrosis. No renal calculi or focal parenchymal lesions. The kidney measures 10.3 cm in maximum dimension. FREE FLUID: None. US/US abdomen rosenthal w elastography IMPRESSION: 1. Slightly echogenic pancreas without focal lesion seen. 2. Mild hepatic steatosis without focal lesion. 3. Liver Elastography: Median liver stiffness measures 1.5 m/s corresponding to cACLD (ruled out). REFERENCE: Society of Radiologists in Ultrasound Liver Stiffness Thresholds (2020): LIVER STIFFNESS THRESHOLDS: *Liver Stiffness equal or less than 1.3 m/s: High probability of being normal. *Liver Stiffness less than 1.7 m/s: In the absence of other known clinical signs, rules out compensated advanced chronic liver disease. *Liver Stiffness 1.7-2.1 m/s: Suggestive of compensated advanced chronic liver disease but need further test for confirmation. *Liver Stiffness over 2.1 m/s: Rules in compensated advanced chronic liver disease. *Liver Stiffness over 2.4 m/s: Suggestive of clinically significant portal hypertension. QUALITY OF DATA SET: *IQR/Median value equal or less than 0.15 implies a quality data set. *IQR/Median value over 0.15 implies a poor quality data set. SIGNIFICANT CHANGE FROM PRIOR EXAM: Significant change if liver stiffness measurement is 10% or greater from prior exam. OTHER CONSIDERATIONS: The stage of liver fibrosis may be overestimated in the setting of acute hepatitis, liver inflammation, elevated liver function tests, hepatic vascular congestion, obstructive cholestasis, non-fasting state, and infiltrative diseases such as amyloidosis and lymphoma. In some patients with NAFLD, the liver stiffness thresholds for compensated advanced chronic liver disease may be lower. In causes other than viral hepatitis and NAFLD, liver stiffness thresholds are not well established.
== END 2023-08-03 10:01 | disposition home or self-care (01) ==
LOC: HO.US 10:00
PROVIDERS: PCP Family Medicine; Visit Provider Family Medicine
DX: R74.8 Abnormal levels of other serum enzymes (principal)
CPT/HCPCS: 76705; 76981

== ENCOUNTER 2023-08-03 14:52 | Outpatient (AMB) | payer MEDICARE, SELFPAY ==
[2023-08-03 14:59] VITALS: BP 118/78; PULSE 78; TEMP 36.9; O2SAT 98; BMI 28.4
--- NOTE | 2023-08-03 14:59 | MHC.PC.OV ---
Vital Signs 08/03/23 14:59 Height 5 ft 2 in Weight 155 lb 6 oz BMI 28.4 BP 118/78 Blood Pressure Location Lt brachial Position Sitting Pulse 78 Pulse Source Pulse Oximeter Temp 98.4 F Temp Source Oral Pulse Oximetry (%) 98 Oxygen Delivery Method Room Air Intake Visit Reasons: f/u hypertension, chronic conditions Intake Note: Patient is here to follow up on hypertension and chronic condtions. Allergies clindamycin Allergy (Mild, Uncoded 08/03/23 15:00) Diarrhea Sulfacetamide Sodium Allergy (Unknown, Uncoded 08/03/23 15:00) skin burn when put on face Tobacco use date assessed: 08/03/23 Fall risk assessment: No Falls in past year Last assessed Fall Risk: 08/03/23 HPI f/u hypertension, chronic conditions HPI Details 73 y/o female presents to f/u hypertension, chronic conditions. Blood pressure today 118/78. He is on lisinopril 20mg daily, amlodipine 5mg, bisoprolol-HCTZ 2.5-6.25mg daily. Pt denies any swelling feet/ankles. Pt reports appt. with pulmonology. [facility] Medical History Diabetes type 2, uncontrolled HTN (hypertension) Surgical History History of hysterectomy History of oral surgery Family History Father Myocardial infarction Hypertension Mother Hypertension CVD (cardiovascular disease) Stroke TIA (transient ischemic attack) Social History Housing: House Alcohol intake: never Patient Tobacco Use Status: Former Tobacco user e-Cigarette/Vaping Use: Never Used Second Hand Smoke Exposure: No service: No Current occupational status: retired Current occupational exposures/hazards: No Cognitive needs: No Hearing needs: No Vision needs: No Questionnaire Thrive Questionnaire Date Thrive assessed: 05/01/23 SABINO-7 AMB Questionnaire SABINO-7 Date SABINO - 7 assessed: 05/01/23 Source: Developed by Drs. Bryan Saldivar, Maddy Hilton, Nikos Brito and colleagues, with an educational harvey from [facility]. Review of Systems Const Denies chills, Denies fatigue, Denies fever(s), Denies headache(s) and Denies weakness ENT Denies dizziness and Denies headache(s) Card Denies dyspnea Resp Denies cough, Denies dyspnea, Denies wheezing and Denies other (shortness of breath) Musc Denies numbness and Denies tingling Neuro Denies dizziness, Denies headache(s), Denies numbness, Denies tingling and Denies weakness Psych Denies anxiety and Denies depression Endo Denies fatigue Aller/Immun Denies wheezing Physical exam (Primary Care) Vital Signs: Last Vital Signs Pulse 78 08/03/23 14:59 BP 118/78 08/03/23 14:59 Pulse Ox 98 08/03/23 14:59 Oxygen Delivery Method Room Air 08/03/23 14:59 BMI result Body Mass Index 28.4 Tobacco/Smoking Status: Tobacco use Status Tobacco use date assessed 08/03/23 08/03/23 15:05 Patient Tobacco Use Status Former Tobacco user 08/03/23 15:05 e-Cigarette/Vaping Use Never Used 08/03/23 15:05 Thrive Assessment: Date of Thrive Assessment Date Thrive assessed 05/01/23 08/03/23 15:05 Const General: well developed; No acute distress Nutritional Appearance: well nourished Orientation/consciousness: patient oriented [facility]3 [facility] Head: Yes normocephalic and Yes atraumatic Eyes General: appearance normal, both eyes and all related structures Pupils: Equal, round and reactive pupils present EOM: EOMs intact bilaterally Resp Effort & Inspection: normal respiratory effort Neuro General: patient oriented x3 and gait normal Cranial nerves: Yes Equal, round and reactive pupils present Psych Affect: normal affect Assessment and Plan Assessment & Plan (1) Essential hypertension: Code(s): I10 - Essential (primary) hypertension Plan: Blood?pressure?well?controlled. Fluid?status?appropriate?and?I?encouraged?her?to?hydrate?well Continue?current?medication?regimen (2) Abnormal MRI, spinal cord: Code(s): R90.89 - Other abnormal findings on diagnostic imaging of central nervous system Plan: Abnormal?signal?seen?in?cervical?spine?on?MRI?spine?survey at?[facility],?ordered?due?to?fever?of?unknown?origin. Patient?is?afebrile?and?feels?okay Dedicated?Cervical?spine?MRI?ordered?to?evaluate?the?above?is?ordered?but?has?not?been?scheduled?yet. Will?ask?the?office?to?check?on?the?status?of?this?study Can?follow-up?at?her?next?visit (3) Asthma: Code(s): J45.909 - Unspecified asthma, uncomplicated Plan: Asthma?and?cough Cough?is?improving?with?Pulmicort?but?her?insurance?has?declined?to?pay?for?this?now. Will?try?QVAR She?has?an?albuterol?inhaler?for?symptoms She?has?an?appointment?with?pulmonology (4) Elevated liver enzymes: Code(s): R74.8 - Abnormal levels of other serum enzymes Plan: She?had?liver?ultrasound?today?but?results?are?not?available?yet. We?will?discuss?at?her?upcoming?visit?if?we?have?not?discussed?it?by?phone?before?then. Coding Level of Care Code Est Pt Level 3 (99427) Diagnoses Essential hypertension I10 Abnormal MRI, spinal cord R90.89 Asthma J45.909 Elevated liver enzymes R74.8
== END 2023-08-03 15:58 | disposition home or self-care (01) ==
PROVIDERS: PCP Family Medicine; Visit Provider Family Medicine
DX: I10 Essential (primary) hypertension (principal); R90.89 Other abnormal findings on diagnostic imaging of central nervous system; J45.909 Unspecified asthma, uncomplicated; R74.8 Abnormal levels of other serum enzymes
CPT/HCPCS: 99213

== ENCOUNTER 2023-08-16 10:13 | Outpatient (AMB) | payer MEDICARE, SELFPAY ==
[2023-08-16 10:29] VITALS: BP 130/68; PULSE 67; O2SAT 96; BMI 28.5
--- NOTE | 2023-08-16 10:29 | MHC.OFFVIS ---
Intake Vital Signs 08/16/23 10:29 Height 5 ft 2 in Weight 156 lb 0.53 oz BMI 28.5 BP 130/68 Blood Pressure Location Lt brachial Position Sitting Pulse 67 Pulse Source Pulse Oximeter Pulse Oximetry (%) 96 Oxygen Delivery Method Room Air Intake Visit Reasons: Cough Intake Note: pt is here as a new patient and was in the hospital for unknown resp. illness last week of June. She feels okay today, no coughing or shortness of breath that is concerning. pt is using pulmicort flex inhaler. Food Counselor Required: No Allergies clindamycin Allergy (Mild, Uncoded 08/16/23 11:08) Diarrhea Sulfacetamide Sodium Allergy (Unknown, Uncoded 08/16/23 11:08) skin burn when put on face Medication List - Last Reconciled 08/16/23 by Dahlia Espino MD albuterol sulfate 90 mcg/actuation (ProAir HFA) 2 puffs inhalation Q4-6H PRN 30 days amlodipine 5 mg PO DAILY beclomethasone dipropionate 40 mcg/actuation (Qvar RediHaler) 1 inh inhalation Q12H 30 days bisoprolol-hydrochlorothiazide 2.5-6.25 mg 2 tabs PO DAILY 90 days budesonide 90 mcg/actuation 1 inh inhalation Q12H 1 month cyclosporine 0.05% (Restasis) 1 drp ophthalmic (eye) Q12H fesoterodine ER 4 mg PO DAILY fluticasone propionate 50 mcg/actuation (Flonase Allergy Relief) 1 spray intranasal .nightly lisinopril 20 mg PO DAILY multivitamin (Daily Multi-Vitamin tablet) 1 tab PO DAILY secukinumab (Cosentyx) 300 mg subcut Q4W Do you need a note to return to daycare/school/sports/work: No HPI Cough HPI Details 73 YEARS OLD FEMALE AN OLD 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 THE COUGH STARTED AFTER A QUESTIONABLE BOUT OF ACUTE. VIRAL INFECTION SHE WAS SEEN IN THE URGENT CARE, A COUPLE OF TIME, TREATED WITH THE ANTIBIOTIC AND INHALERS. TWO WEEKS AGO ADMITTED TO [facility], FOR 4 DAYS DUE TO SYMPTOMS OF ACUTE BRONCHITIS, SHE HAD MILD LEUKOCYTOSIS BUT CHEST X-RAY WAS NORMAL. SHE HAS BEEN SENT HOME WITH INSTRUCTIONS TO USE PULMICORT TWIST HALER ONCE A DAY, WHICH IS NOW BEING CHANGED TO QVAR -40 2 PUFFS ONCE A DAY. AND ALBUTEROL 2 PUFFS Q 4-6 HOURS P.R.N.. SHE CLAIMS THAT THE COUGH IS FINALLY GETTING, MUCH LESS SHE DOES HAVE CHRONIC ALLERGIC RHINITIS AND I THINK HER COUGH IS MAINLY CAUSED BY THIS ISSUE. SHE MAY HAVE HAD ACUTE VIRAL ILLNESS WHICH IS FINALLY GONE. SHE HAS HISTORY OF SMOKING FOR 5-6 YEARS BUT QUIT MORE THAN 20 YEARS AGO. SHE HAS MILD ANXIETY DISORDER AND IN THE PAST HAS USED ALPRAZOLAM 0.5 MG QUARTER TO HALF TABLET DAILY NEEDED. SHE ALSO HAS HAD ROSACEA, WHICH IS FINALLY IN REMISSION. SHE IS NOT USING COSENTYX, ANYMORE. [facility] Medical History (Updated 08/16/23 @ 11:20 by Dahlai Espino MD) Allergic rhinitis Diabetes type 2, uncontrolled HTN (hypertension) Surgical History History of hysterectomy History of oral surgery Family History Father Myocardial infarction Hypertension Mother Hypertension CVD (cardiovascular disease) Stroke TIA (transient ischemic attack) Social History Housing: House Alcohol intake: never Patient Tobacco Use Status: Former Tobacco user e-Cigarette/Vaping Use: Never Used Second Hand Smoke Exposure: No service: No Current occupational status: retired Current occupational exposures/hazards: No Cognitive needs: No Hearing needs: No Vision needs: No Review of Systems Const All systems reviewed & are unremarkable except as noted in HPI and below Eyes Reports no additional complaints ENT Reports nasal congestion and Reports nasal discharge (MILD TO MODERATE, OFF AND ON) Card Denies chest pain, Denies irregular heart rhythm and Denies leg edema Resp Reports as per HPI GI Reports no additional complaints Reports no additional complaints Musc Reports no additional complaints Skin/Breast Reports system reviewed and no additional complaints, except as documented Neuro Reports no additional complaints Psych Reports anxiety (MILD OFF AND ON) Endo Reports no additional complaints Alvaro/Lymph Reports no additional complaints Aller/Immun Reports no additional complaints Physical Exam Vital Signs: Last Vital Signs Pulse 67 08/16/23 10:29 BP 130/68 08/16/23 10:29 Pulse Ox 96 08/16/23 10:29 Oxygen Delivery Method Room Air 08/16/23 10:29 BMI result Body Mass Index 28.5 Const General: healthy appearing, comfortable, no acute distress, alert and awake Orientation/consciousness: patient oriented x3 HEENT Head: Yes normal to inspection General nose exam: No nasal polyps present, No nasal discharge present and Other nasal findings present (NO ACTIVE NASAL CONGESTION AT THIS TIME) Face and sinus: Yes sinuses nontender Mouth: oropharynx normal Throat: Yes posterior oropharynx normal Eyes General: appearance normal, both eyes and all related structures Neck Neck: Yes normal visual inspection, Yes no lymphadenopathy, Yes trachea midline and Yes no JVD Thyroid: Thyroid normal Chest Chest palpation & inspection: normal inspection of the chest, normal palpation of entire chest wall and no tenderness Resp Other: PERCUSSION NOTE RESONANT. SHE HAS GOOD BREATH. SOUNDS AND EQUAL ON BOTH SIDES THERE ARE NO WHEEZES CREPITATIONS OR RHONCHI. Cardio Palpation: normal PMI Rate: regular rate Rhythm: regular rhythm Heart sounds: no gallops and no murmurs Peripheral pulses: Peripheral pulses 2+ throughout GI Palpation (GI): Soft to palpation, Tenderness to palpation present (GI), No hepatosplenomegaly present and Palpable mass present Auscultation: normal bowel sounds Back/Spine/Pelvis Thoracic/Lumbar Spine: thoracic and lumbar spine normal to inspection Skin General skin exam: no rashes or lesions noted Neuro General: patient oriented x3 and no focal motor deficits Cranial nerves: Yes CN's II-XII intact bilaterally Extrem General: Yes normal to inspection, Yes no clubbing, cyanosis or edema and Yes no calf tenderness Psych Appearance: grossly normal and well kempt Speech and movement: Normal speech and movement present Results Reviewed Results Reviewed: DISCHARGE SUMMARY FROM [facility] IS REVIEWED. Assessment & Plan Assessment & Plan (1) Allergic rhinitis: Comment: PATIENT HAS CHRONIC INTERMITTENT ALLERGIC RHINITIS, FLARES UP . DUE TO ENVIRONMENTAL CHANGES Code(s): J30.9 - Allergic rhinitis, unspecified Plan: CONTINUE FLONASE 2 SPRAY EACH NOSTRIL DAILY LORATADINE OR CETIRIZINE 10 MG, HALF TO 1 TABLET ONCE A DAY P.R.N. (2) Asthma: Comment: THERE IS A QUESTION OF BRONCHIAL ASTHMA WHICH MAY BE THE CAUSE OF HER ONGOING COUGH. I THINK IT IS RELATED TO ALLERGIC RHINITIS. Code(s): J45.909 - Unspecified asthma, uncomplicated Plan: PULMONARY FUNCTION TEST IS NEEDED. IN THE MEANTIME CONTINUE QVAR-40 2 INHALATION DAILY. AND USE VENTOLIN 2 PUFFS Q 4-6 HOURS ONLY P.R.N. IF THERE IS A PERSISTENT BOUT OF COUGH. (3) Cough: Comment: STARTED HAVING COUGH BACK IN MARCH 2023, MOST LIKELY SECONDARY TO ACUTE VIRAL INFECTION, WHICH HAS FINALLY RESOLVED. COUGH IS. DOWN TO MINIMAL AT THIS TIME Code(s): R05.9 - Cough, unspecified Qualifiers: Cough type: chronic Qualified Code(s): R05.3 - Chronic cough Plan: NO NEED TO USE ANY COUGH MEDICINE, Orders: Orders PFT pulmonary function test Today Referrals Pulmonology Referral J30.9 - Allergic rhinitis, unspecified, J45.909 - Unspecified asthma, uncomplicated, R05.9 - Cough, unspecified Coding Level of Care Code Est Pt Level 4 (94964) Diagnoses Allergic rhinitis J30.9 Asthma J45.909 Chronic cough R05.3 Cough type: chronic
== END 2023-08-16 11:11 | disposition home or self-care (01) ==
PROVIDERS: PCP Family Medicine; Visit Provider Internal Medicine
DX: J30.9 Allergic rhinitis, unspecified (principal); J45.909 Unspecified asthma, uncomplicated; R05.3 Chronic cough
CPT/HCPCS: 99214

== ENCOUNTER → 2023-08-16 10:13 | Outpatient (BNVA) | payer MEDICARE, SELFPAY | PROVIDERS: PCP Family Medicine; Visit Provider Internal Medicine | DX: J45.909 Unspecified asthma, uncomplicated (principal); R05.3 Chronic cough | CPT/HCPCS: 99212 ==

== ENCOUNTER 2023-08-19 10:27 | Outpatient (REF) | payer MEDICARE, SELFPAY ==
--- NOTE | ~2023-08-19 | MR_ITS ---
EXAMINATION: MR CERVICAL SPINE WITHOUT CONTRAST CLINICAL INFORMATION: Left-sided neck pain. Finger numbness and weakness. COMPARISON: None available. TECHNIQUE: Multiplanar, multisequential imaging of the cervical spine was performed without contrast. Slightly limited study with motion artifacts. FINDINGS: VERTEBRAL BODIES AND PARASPINAL SOFT TISSUES: There is a leftward curvature of the spine at the cervicothoracic junction. No compression fractures are visible. The marrow signal is within normal limits. There is mild marrow edema in the T3 vertebral body which may be reactive to spondylosis, endplate spurring, and the degenerative curvature. There is moderate disc space narrowing at the C5-C6 and C6-C7 levels with endplate spurring. The paraspinal soft tissues appear normal. There is a small round 6 mm T2 hyperintense lesion in the right thyroid lobe, for which no further imaging followup is indicated. The visualized lung apices are grossly clear. CERVICOMEDULLARY JUNCTION AND VISUALIZED POSTERIOR FOSSA: The intervertebral junction and imaged portions of the brain parenchyma appear normal. No cord signal abnormality or syrinx is seen. SPINAL LEVELS: C2-C3: Shallow right subarticular zone disc protrusion and uncovertebral joint spurring with mild right foraminal encroachment. Severe right-sided facet arthropathy as well. No central canal stenosis. C3-C4: Broad-based central disc protrusion present with an underlying disc-osteophyte complex and thickening of the ligamentum flavum posteriorly. Findings result in mild central canal stenosis. Advanced left-sided facet arthropathy and moderate right-sided facet degeneration with moderate foraminal encroachment. C4-C5: Mild disc-osteophyte complex and exuberant facet arthropathy, worse on the right side. Very mild narrowing of the central canal. Severe right foraminal encroachment. C5-C6: Shallow disc-osteophyte complex without central canal stenosis. Severe right foraminal narrowing. C6-C7: Mild disc-osteophyte complex slightly impressing upon the ventral thecal sac without central canal stenosis. Mild bilateral foraminal narrowing. C7-T1: Minimal anterolisthesis. No focal disc protrusion, central canal stenosis, or foraminal narrowing. MR/MR cervical spine wo con IMPRESSION: 1. [id number] multilevel cervical spondylosis with a mild leftward spinal curvature. Significant multilevel hypertrophic facet arthropathy. 2. Broad-based central disc protrusion and disc-osteophyte complex at C3-C4 with mild central canal stenosis and moderate bilateral foraminal narrowing. 3. Severe right-sided facet arthropathy at C2-C3 and C4-C5. Severe right foraminal narrowing at the C4-C5 and C5-C6 levels.
== END 2023-08-19 10:28 | disposition home or self-care (01) ==
LOC: HO.MRI 10:27
PROVIDERS: PCP Family Medicine; Visit Provider Family Medicine
DX: R90.89 Other abnormal findings on diagnostic imaging of central nervous system (principal); R20.0 Anesthesia of skin; R20.2 Paresthesia of skin
CPT/HCPCS: 72141

== ENCOUNTER 2023-09-03 11:25 | Outpatient (AMB) | payer MEDICARE, SELFPAY ==
[2023-09-03 11:32] VITALS: BP 132/70; PULSE 71; O2SAT 98; BMI 28.9
--- NOTE | 2023-09-03 11:32 | A.OFFPC_ITS ---
Vital Signs 09/03/23 11:32 Height 5 ft 2 in Weight 158 lb 2 oz BMI 28.9 BP 132/70 Blood Pressure Location Lt brachial Position Sitting Pulse 71 Pulse Source Pulse Oximeter Pulse Oximetry (%) 98 Oxygen Delivery Method Room Air Intake Visit Reasons: f/u diabetes Intake Note: Patient is here for follow up on diabetes today, and had a tooth pulled on ,is on antibiotic and was infected, and has rash in groin area. Allergies clindamycin Allergy (Mild, Uncoded 09/03/23 11:35) Diarrhea Sulfacetamide Sodium Allergy (Unknown, Uncoded 09/03/23 11:35) skin burn when put on face Tobacco use date assessed: 09/03/23 Fall risk assessment: No Falls in past year Last assessed Fall Risk: 09/03/23 Dental Screening Dental Screen Date: 09/03/23 Did you have a dental visit in the last 12 months?: Yes Did you have a dental problem in the last 6 months where you did not have access to dental care?: No Was dental information given to patient?: Patient has dentist HPI f/u diabetes HPI Details 73 y/o female presents to f/u diabetes a nd hypertension. Also f/u liver ultrasound and cervical spine MRI. Blood pressure today controlled at 132/70. She is on amlodipine 5mg, bisoprolol- HCTZ 2.5-6.25mg, lisinopril 20mg daily. Diet controlled diabetes. A1c today 09/03/23 5.9%. Pt has complaints of a rash. Pt also reports worsened urinary urgency. [facility] Medical History Allergic rhinitis Diabetes type 2, uncontrolled HTN (hypertension) Surgical History History of hysterectomy History of oral surgery Family History Father Myocardial infarction Hypertension Mother Hypertension CVD (cardiovascular disease) Stroke TIA (transient ischemic attack) Social History Housing: House Alcohol intake: never Patient Tobacco Use Status: Former Tobacco user e-Cigarette/Vaping Use: Never Used Second Hand Smoke Exposure: No service: No Current occupational status: retired Current occupational exposures/hazards: No Cognitive needs: No Hearing needs: No Vision needs: No Questionnaire Thrive Questionnaire Date Thrive assessed: 05/01/23 SABINO-7 AMB Questionnaire SABINO-7 Date SABINO - 7 assessed: 05/01/23 Source: Developed by Drs. Bryan Saldivar, Maddy Hilton, Nikos Brito and colleagues, with an educational harvey from [employer]. Review of Systems Const Denies chills, Denies fatigue, Denies fever(s), Denies headache(s) and Denies weakness ENT Denies dizziness and Denies headache(s) Card Denies dyspnea Resp Denies cough, Denies dyspnea, Denies wheezing and Denies other (shortness of breath) Musc Denies numbness and Denies tingling Skin/Breast Reports rash Neuro Denies dizziness, Denies headache(s), Denies numbness, Denies tingling and Denies weakness Psych Denies anxiety and Denies depression Endo Denies fatigue Aller/Immun Denies wheezing Physical exam (Primary Care) Vital Signs: Last Vital Signs Pulse 71 09/03/23 11:32 BP 132/70 09/03/23 11:32 Pulse Ox 98 09/03/23 11:32 Oxygen Delivery Method Room Air 09/03/23 11:32 BMI result Body Mass Index 28.9 Tobacco/Smoking Status: Tobacco use Status Tobacco use date assessed 09/03/23 09/03/23 11:38 Patient Tobacco Use Status Former Tobacco user 09/03/23 11:38 e-Cigarette/Vaping Use Never Used 09/03/23 11:38 Thrive Assessment: Date of Thrive Assessment Date Thrive assessed 05/01/23 09/03/23 11:38 Const General: well developed; No acute distress Nutritional Appearance: well nourished Orientation/consciousness: patient oriented x3 HENMT Head: Yes normocephalic and Yes atraumatic Eyes General: appearance normal, both eyes and all related structures Pupils: Equal, round and reactive pupils present EOM: EOMs intact bilaterally Resp Effort & Inspection: normal respiratory effort Auscultation: clear to auscultation bilaterally Cardio Rate: regular rate Rhythm: regular rhythm Heart sounds: S1 normal heart sound present, S2 normal heart sound present, no gallops, no murmurs and no rubs Neuro General: patient oriented x3 and gait normal Cranial nerves: Yes Equal, round and reactive pupils present Psych Affect: normal affect Results AMB Hemoglobin A1c AMB Hemoglobin A1c 5.9 % Last Edit by Carmen Thomas MA on 09/03/23 11:51 Assessment and Plan Assessment & Plan (1) Essential hypertension: Code(s): I10 - Essential (primary) hypertension Plan: Blood?pressure?is?controlled.??Goal?is?less?than?140/90 Continue?current?medication?regimen (2) Diet-controlled diabetes mellitus: Code(s): E11.9 - Type 2 diabetes mellitus without complications Plan: A1c?is?5.9%. Controlled.??Goal?is?less?than?7.0% Continue?diet?control (3) Cervical radiculopathy: Code(s): M54.12 - Radiculopathy, cervical region Plan: Tingling?and?numbness ?in?bilateral?hands?and?MRI?shows?some?facet?arthropathy?and?foraminal?stenoses. Referred?to?[place]?[facility]?sports (4) Diet-controlled diabetes mellitus: Code(s): E11.9 - Type 2 diabetes mellitus without complications (5) Rash: Code(s): R21 - Rash and other nonspecific skin eruption Plan: Rash?in?bilateral?groin?and?may?be?contact?dermatitis?versus?fungal?infection. Will?give?her?clotrimazole-betamethasone?cream Avoid?excess?moisture (6) Elevated liver enzymes: Code(s): R74.8 - Abnormal levels of other serum enzymes Plan: Liver?ultrasound?shows?hepatic?steatosis?but?no?focal?lesions Encouraged?weight?loss (7) Urinary urgency: Code(s): R39.15 - Urgency of urination Plan: Check?urinalysis Follow-up?with?your?urologist (8) Abnormal MRI, spinal cord: Code(s): R90.89 - Other abnormal findings on diagnostic imaging of central nervous system Plan: As?above Orders: Orders AMB Hemoglobin A1c Today E11.9 - Type 2 diabetes mellitus without complications Referrals Physiatry Referral R20.0 - Anesthesia of skin, R20.2 - Paresthesia of skin Medications: New clotrimazole-betamethasone 1-0.05 % 1 appl topical BID 30 grams 0RF 2 weeks Coding Level of Care Code Est Pt Level 4 (70011) Diagnoses Essential hypertension I10 Diet-controlled diabetes mellitus E11.9 Cervical radiculopathy M54.12 Rash R21 Elevated liver enzymes R74.8 Urinary urgency R39.15 Abnormal MRI, spinal cord R90.89
== END 2023-09-03 12:25 | disposition home or self-care (01) ==
PROVIDERS: PCP Family Medicine; Visit Provider Family Medicine
DX: I10 Essential (primary) hypertension (principal); E11.9 Type 2 diabetes mellitus without complications; M54.12 Radiculopathy, cervical region; R21 Rash and other nonspecific skin eruption; R74.8 Abnormal levels of other serum enzymes; R39.15 Urgency of urination; R90.89 Other abnormal findings on diagnostic imaging of central nervous system
CPT/HCPCS: 83036; 99214

== ENCOUNTER 2023-09-03 12:18 | Outpatient (REF) | payer MEDICARE, SELFPAY ==
[2023-09-03 14:28] LABS: Appearance Urine Clear; Color Urine Yellow; Glucose Urine UA Negative (Negative); Leukocyte Esterase Urine Negative (Negative); Nitrite Urine Negative (Negative); PH 7.5 (5.0-9.0); Specific Gravity - Urine <= 1.005 (1.005-1.025); Urine Blood Negative (Negative); Urine Ketones Negative (Negative); Urine Protein Negative (Neg-Trace)
== END 2023-09-03 12:19 | disposition home or self-care (01) ==
LOC: HO.LAB 12:18
PROVIDERS: Visit Provider Family Medicine
DX: Z00.00 Encounter for general adult medical examination without abnormal findings (principal); E11.9 Type 2 diabetes mellitus without complications; R39.15 Urgency of urination
CPT/HCPCS: 81003; 87086

== ENCOUNTER 2023-10-02 09:33 | Outpatient (REF) | payer MEDICARE, SELFPAY ==
[2023-10-02 08:14] VITALS: PULSE 66; RESP 16; O2SAT 98
--- NOTE | 2023-10-02 14:37 | PFT_ITS ---
Flows: FEV1: 86 % of predicted at 1.65 L FVC: 82 % of predicted at 2.04 L FEV1/FVC: 81 % Bronchodilator response: Absent Volumes: Total lung capacity: 73 % of predicted at 3.36 L Residual volume: 67 % of predicted at 1.30 L Slow vital capacity: 80 % of predicted at 2.06 L Expiratory reserve volume: 155 % of predicted at 0.96 L Diffusion capacity: Mildly decreased, corrects to normal after adjustment for alveolar ventilation. Impression: Mild restrictive ventilatory defect with no bronchodilator response. Combination of restrictive ventilatory defect with decreased diffusion capacity suggests underlying pulmonary parenchymal disease. Clinical correlation is advised. MTDD
== END 2023-10-02 09:34 | disposition home or self-care (01) ==
LOC: HO.RESP 09:33
PROVIDERS: PCP Family Medicine; Visit Provider Internal Medicine
DX: J45.909 Unspecified asthma, uncomplicated (principal)
CPT/HCPCS: 94010; 94640; 94727; 94729

== ENCOUNTER → 2023-10-02 14:37 | Outpatient (BNV) | payer MEDICARE, SELFPAY | PROVIDERS: PCP Family Medicine; Visit Provider Internal Medicine Pulmonary Disease | DX: J45.909 Unspecified asthma, uncomplicated (principal) | CPT/HCPCS: 94060; 94727; 94729 ==

== ENCOUNTER 2023-10-10 09:39 | Outpatient (AMB) | payer MEDICARE, SELFPAY ==
[2023-10-10 10:03] VITALS: BP 128/70; PULSE 58; O2SAT 97; BMI 29.1
--- NOTE | 2023-10-10 10:03 | A.OFFVIS_ITS ---
Intake Vital Signs 10/10/23 10:03 Height 5 ft 2 in Weight 159 lb BMI 29.1 BP 128/70 Blood Pressure Location Lt brachial Position Sitting Pulse 58 Pulse Source Pulse Oximeter Pulse Oximetry (%) 97 Oxygen Delivery Method Room Air Intake Visit Reasons: Cough Intake Note: pt is here for follow up of her pft results, she states she feels really good. [employer] Required: No Allergies clindamycin Allergy (Mild, Uncoded 10/10/23 10:29) Diarrhea Sulfacetamide Sodium Allergy (Unknown, Uncoded 10/10/23 10:29) skin burn when put on face Medication List - Last Reconciled 10/10/23 by Dahlia Espino MD albuterol sulfate 90 mcg/actuation (ProAir HFA) 2 puffs inhalation Q4-6H PRN 30 days amlodipine 5 mg PO DAILY bisoprolol-hydrochlorothiazide 2.5-6.25 mg 2 tabs PO DAILY 90 days clotrimazole-betamethasone 1-0.05 % 1 appl topical BID 2 weeks cyclosporine 0.05% (Restasis) 1 drp ophthalmic (eye) Q12H fluticasone furoate 100 mcg/actuation (Arnuity Ellipta) 1 inh inhalation Q24H 30 days fluticasone propionate 50 mcg/actuation (Flonase Allergy Relief) 1 spray intranasal .nightly lisinopril 20 mg PO DAILY multivitamin (Daily Multi-Vitamin tablet) 1 tab PO DAILY secukinumab (Cosentyx) 300 mg subcut Q4W trospium 20 mg PO BID Do you need a note to return to daycare/school/sports/work: No HPI Cough HPI Details JEANNE IS HERE FOR FOLLOW-UP AFTER PULMONARY FUNCTION TEST. SINCE LAST VISIT SHE HAS BEEN USING ARNUITY -101 INHALATION DAILY. HER COUGH IS ALMOST GONE COMPLETELY. SHE DOES NOT HAVE TO USE ALBUTEROL INHALER. PULMONARY FUNCTION TEST IS ALMOST NORMAL EXCEPT FOR MILD RESTRICTIVE DISORDER. MOST OF HER DISCUSSION WAS ABOUT PSORIASIS AND PSORIATIC ARTHRITIS, SHE HAS BEEN OFF COSYTEX, HER SYMPTOMS ARE STARTING TO FLARE UP. [facility] Medical History Allergic rhinitis Diabetes type 2, uncontrolled HTN (hypertension) Surgical History History of hysterectomy History of oral surgery Family History Father Myocardial infarction Hypertension Mother Hypertension CVD (cardiovascular disease) Stroke TIA (transient ischemic attack) Social History Housing: House Alcohol intake: never Patient Tobacco Use Status: Former Tobacco user e-Cigarette/Vaping Use: Never Used Second Hand Smoke Exposure: No service: No Current occupational status: retired Current occupational exposures/hazards: No Cognitive needs: No Hearing needs: No Vision needs: No Review of Systems Const All systems reviewed & are unremarkable except as noted in HPI and below Eyes Reports no additional complaints ENT Reports nasal congestion and Reports nasal discharge (MILD TO MODERATE, OFF AND ON) Card Denies chest pain, Denies irregular heart rhythm and Denies leg edema Resp Reports as per HPI GI Reports no additional complaints Reports no additional complaints Musc Reports no additional complaints Skin/Breast Reports system reviewed and no additional complaints, except as documented Neuro Reports no additional complaints Psych Reports anxiety (MILD OFF AND ON) Endo Reports no additional complaints Alvaro/Lymph Reports no additional complaints Aller/Immun Reports no additional complaints Physical Exam Vital Signs: Last Vital Signs Pulse 58 10/10/23 10:03 BP 128/70 10/10/23 10:03 Pulse Ox 97 10/10/23 10:03 Oxygen Delivery Method Room Air 10/10/23 10:03 BMI result Body Mass Index 29.1 Const General: healthy appearing, comfortable, no acute distress, alert and awake Orientation/consciousness: patient oriented x3 HEENT Head: Yes normal to inspection General nose exam: No nasal polyps present, No nasal discharge present and Other nasal findings present (NO ACTIVE NASAL CONGESTION AT THIS TIME) Face and sinus: Yes sinuses nontender Mouth: oropharynx normal Throat: Yes posterior oropharynx normal Eyes General: appearance normal, both eyes and all related structures Neck Neck: Yes normal visual inspection, Yes no lymphadenopathy, Yes trachea midline and Yes no JVD Thyroid: Thyroid normal Chest Chest palpation & inspection: normal inspection of the chest, normal palpation of entire chest wall and no tenderness Resp Other: PERCUSSION NOTE RESONANT. SHE HAS GOOD BREATH. SOUNDS AND EQUAL ON BOTH SIDES THERE ARE NO WHEEZES CREPITATIONS OR RHONCHI. Cardio Palpation: normal PMI Rate: regular rate Rhythm: regular rhythm Heart sounds: no gallops and no murmurs Peripheral pulses: Peripheral pulses 2+ throughout GI Palpation (GI): Soft to palpation, Tenderness to palpation present (GI), No hepatosplenomegaly present and Palpable mass present Auscultation: normal bowel sounds Back/Spine/Pelvis Thoracic/Lumbar Spine: thoracic and lumbar spine normal to inspection Skin General skin exam: no rashes or lesions noted Neuro General: patient oriented x3 and no focal motor deficits Cranial nerves: Yes CN's II-XII intact bilaterally Extrem General: Yes normal to inspection, Yes no clubbing, cyanosis or edema and Yes no calf tenderness Psych Appearance: grossly normal and well kempt Speech and movement: Normal speech and movement present Results Reviewed Results Reviewed: PULMONARY FUNCTION TEST FINDINGS ARE REVIEWED. SHE HAS A MINIMAL DEGREE OF RESTRICTIVE DISORDER, BUT NO OBSTRUCTIVE AIRWAY DISORDER Assessment & Plan Assessment & Plan (1) Asthma: Comment: THERE IS A QUESTION OF BRONCHIAL ASTHMA WHICH MAY BE THE CAUSE OF HER ONGOING COUGH. I THINK IT IS RELATED TO ALLERGIC RHINITIS. WITH THE USE OF ARNUITY ELLIPTA 1 INHALATION DAILY THE COUGH IS COMPLETELY R ESOLVED. Code(s): J45.909 - Unspecified asthma, uncomplicated Plan: CONTINUE ARNUITY ELLIPTA 1 INHALATION DAILY, BUT IF SHE REMAINS SYMPTOM-FREE FOR 2 WEEKS SHE CAN TRY TO GO OFF THIS INHALER, AND USE P.R.N. ALBUTEROL HFA 2 PUFFS Q 4-6 HOURS P.R.N. IF THERE IS ANY WHEEZING OR BOUTS OF COUGH. (2) Allergic rhinitis: Comment: PATIENT HAS CHRONIC INTERMITTENT ALLERGIC RHINITIS, FLARES UP . DUE TO ENVIRONMENTAL CHANGES Code(s): J30.9 - Allergic rhinitis, unspecified Plan: MAY USE FLONASE NASAL SPRAY 1 SPRAY IN EACH NOSTRIL DAILY (3) Cough: Comment: COUGH WAS MOSTLY RELATED, TO ALLERGIC RHINITIS AND ASTHMA VARIANT. IT IS RESOLVED ALMOST COMPLETELY WITH THE USE OF ARNUITY ELLIPTA 100 MCG DAILY Code(s): R05.9 - Cough, unspecified Qualifiers: Cough type: chronic Qualified Code(s): R05.3 - Chronic cough Plan: USE ARNUITY ELLIPTA 1 INHALATION DAILY, P.R.N. Coding Level of Care Code Est Pt Level 3 (65717) Diagnoses Asthma J45.909 Allergic rhinitis J30.9 Chronic cough R05.3 Cough type: chronic
== END 2023-10-10 10:48 | disposition home or self-care (01) ==
PROVIDERS: PCP Family Medicine; Visit Provider Internal Medicine
DX: J45.909 Unspecified asthma, uncomplicated (principal); J30.9 Allergic rhinitis, unspecified; R05.3 Chronic cough
CPT/HCPCS: 99213

== ENCOUNTER → 2023-10-10 09:39 | Outpatient (BNVA) | payer MEDICARE, SELFPAY | PROVIDERS: PCP Family Medicine; Visit Provider Internal Medicine | DX: J45.909 Unspecified asthma, uncomplicated (principal); R05.3 Chronic cough | CPT/HCPCS: 99212 ==

== ENCOUNTER 2023-12-10 10:47 | Outpatient (REF) | payer MEDICARE, SELFPAY | END 2023-12-10 10:48 | disposition home or self-care (01) | LOC: HO.MAMMO 10:47 | PROVIDERS: PCP Family Medicine; Visit Provider Family Medicine | DX: Z12.31 Encounter for screening mammogram for malignant neoplasm of breast (principal) | CPT/HCPCS: 77063; 77067 ==

== ENCOUNTER → 2023-12-10 11:15 | Outpatient (BNV) | payer MEDICARE, SELFPAY | PROVIDERS: PCP Family Medicine; Visit Provider Radiology Diagnostic Radiology | DX: Z12.31 Encounter for screening mammogram for malignant neoplasm of breast (principal) | CPT/HCPCS: 77063; 77067 ==

== ENCOUNTER 2023-12-17 09:24 | Outpatient (AMB) | payer MEDICARE, SELFPAY ==
--- NOTE | 2023-12-17 09:32 | A.OFFPC_ITS ---
Vital Signs 12/17/23 09:33 Height 5 ft 2 in Weight 163 lb 8 oz BMI 29.9 BP 130/66 Blood Pressure Location Lt brachial Position Sitting Pulse 62 Pulse Source Pulse Oximeter Pulse Oximetry (%) 97 Oxygen Delivery Method Room Air Intake Visit Reasons: f/u chronic conditions Intake Note: Patient is here for follow up on chronic conditions. Allergies clindamycin Allergy (Mild, Uncoded 12/17/23 09:34) Diarrhea Sulfacetamide Sodium Allergy (Unknown, Uncoded 12/17/23 09:34) skin burn when put on face Medication List - Last Reconciled 12/17/23 by Franki Chappell MD albuterol sulfate 90 mcg/actuation (ProAir HFA) 2 puffs inhalation Q4-6H PRN 30 days amlodipine 5 mg PO DAILY bisoprolol-hydrochlorothiazide 2.5-6.25 mg 2 tabs PO DAILY 90 days clotrimazole-betamethasone 1-0.05 % 1 appl topical BID 2 weeks cyclosporine 0.05% (Restasis) 1 drp ophthalmic (eye) Q12H fluticasone furoate 100 mcg/actuation (Arnuity Ellipta) 1 inh inhalation Q24H 30 days fluticasone propionate 50 mcg/actuation (Flonase Allergy Relief) 1 spray intranasal .nightly lisinopril 20 mg PO DAILY multivitamin (Daily Multi-Vitamin tablet) 1 tab PO DAILY secukinumab (Cosentyx) 300 mg subcut Q4W trospium 20 mg PO BID Tobacco use date assessed: 12/17/23 Fall risk assessment: No Falls in past year Last assessed Fall Risk: 12/17/23 Dental Screening Dental Screen Date: 12/17/23 Did you have a dental visit in the last 12 months?: Yes Did you have a dental problem in the last 6 months where you did not have access to dental care?: No Was dental information given to patient?: Patient has dentist HPI f/u chronic conditions HPI Details 73 y/o female presents to f/u chronic co nditions. Last A1c 09/03/23 5.9% - diet controlled diabetes. A1c today 12/17/23 is 7.2%. Pt notes dietary indiscretions and has not been exercising much. She f/u with her eye doctor for her eye exams. She does note she has cataracts she sees them for. Blood pressure today 130/66. She is on lisinopril 20mg, bisoprolol-HCTZ 2.5-6.25mg 2 tabs, amlodipine 5mg daily. Pt notes she has an upcoming carpal tunnel surgery. HPI Comments History of Present Illness Details Documentation assistance for Franki Chappell MD, was provided by Manuel Flores,? Internal Corrosion Specialist on 12/17/2023 at 9:43 AM EST. I, Dr. Chappell, have read, observed, and verified documentation. [facility] Medical History (Reviewed 12/17/23 @ 09:35 by Lucero Rosales [facility]) Allergic rhinitis Diabetes type 2, uncontrolled HTN (hypertension) Surgical History History of hysterectomy History of oral surgery Family History Father Myocardial infarction Hypertension Mother Hypertension CVD (cardiovascular disease) Stroke TIA (transient ischemic attack) Social History (Reviewed 12/17/23 @ 09:35 by Lucero Rosales [facility]) Housing: House Alcohol intake: never Patient Tobacco Use Status: Former Tobacco user e-Cigarette/Vaping Use: Never Used Second Hand Smoke Exposure: No service: No Current occupational status: retired Current occupational exposures/hazards: No Cognitive needs: No Hearing needs: No Vision needs: No Questionnaire Thrive Questionnaire Date Thrive assessed: 05/01/23 SABINO-7 AMB Questionnaire SABINO-7 Date SABINO - 7 assessed: 05/01/23 Source: Developed by Drs. Bryan Saldivar, Maddy Hilton, Nikos Brito and colleagues, with an educational harvey from [employer]. Review of Systems Const Denies chills, Denies fatigue, Denies fever(s), Denies headache(s) and Denies weakness ENT Denies dizziness and Denies headache(s) Card Denies dyspnea Resp Denies cough, Denies dyspnea, Denies wheezing and Denies other (shortness of breath) Musc Denies numbness and Denies tingling Neuro Denies dizziness, Denies headache(s), Denies numbness, Denies tingling and Denies weakness Psych Denies anxiety and Denies depression Endo Denies fatigue Aller/Immun Denies wheezing Physical exam (Primary Care) Vital Signs: Last Vital Signs Pulse 62 12/17/23 09:33 BP 130/66 12/17/23 09:33 Pulse Ox 97 12/17/23 09:33 Oxygen Delivery Method Room Air 12/17/23 09:33 BMI result Body Mass Index 29.9 Tobacco/Smoking Status: Tobacco use Status Tobacco use date assessed 12/17/23 12/17/23 09:36 Patient Tobacco Use Status Former Tobacco user 12/17/23 09:36 e-Cigarette/Vaping Use Never Used 12/17/23 09:36 Thrive Assessment: Date of Thrive Assessment Date Thrive assessed 05/01/23 12/17/23 09:36 Const General: well developed; No acute distress Nutritional Appearance: well nourished Orientation/consciousness: patient oriented x3 HENMT Head: Yes normocephalic and Yes atraumatic Eyes General: appearance normal, both eyes and all related structures Pupils: Equal, round and reactive pupils present EOM: EOMs intact bilaterally Resp Effort & Inspection: normal respiratory effort Auscultation: clear to auscultation bilaterally Cardio Rate: regular rate Rhythm: regular rhythm Heart sounds: S1 normal heart sound present, S2 normal heart sound present, no gallops, no murmurs and no rubs Neuro General: patient oriented x3 and gait normal Cranial nerves: Yes Equal, round and reactive pupils present Psych Affect: normal affect Results AMB Hemoglobin A1c AMB Hemoglobin A1c 7.2 % Last Edit by Lucero Rosales CMA on 12/17/23 09:52 Assessment and Plan Assessment & Plan (1) Diet-controlled diabetes mellitus: Code(s): E11.9 - Type 2 diabetes mellitus without complications Plan: Patient?has?been?working?on?diet- controlled?diabetes?but?her?A1c?has?increased?to?7.2%?from?5.9%?a?few?months?ago .??Goal?is?less?than?7.0% She?notes?many?dietary?indiscretions?and?has?not?been?exercising?much. She?will?work?on?a?diabetic?diet?lower?in?sugars?and?starches. She?will?try?to?get?more?exercise?and?we?discussed?walking?in?supermarket?and?[employer]?if?the?weather?is?not?amenable No?medication?changes?today. Will?follow-up?in?3?months She?says?she?is?up-to-date?with?Ophthalmology?but?I?do?not?have?any?recent?notes .??Will?request?these (2) Essential hypertension: Code(s): I10 - Essential (primary) hypertension Plan: Blood?pressure?is?controlled.??Goal?is?less?than?140/90 Continue?current?medication?regimen (3) Carpal tunnel syndrome: Code(s): G56.00 - Carpal tunnel syndrome, unspecified upper limb Plan: She?has?had?bilateral?hand?numbness. Plan?is?bilateral?carpal?tunnel?release?surgery Orders: Orders AMB Hemoglobin A1c Today Z13.9 - Encounter for screening, unspecified Coding Level of Care Code Est Pt Level 3 (80737) Diagnoses Diet-controlled diabetes mellitus E11.9 Essential hypertension I10 Carpal tunnel syndrome G56.00
[2023-12-17 09:33] VITALS: BP 130/66; PULSE 62; O2SAT 97; BMI 29.9
== END 2023-12-17 09:58 | disposition home or self-care (01) ==
PROVIDERS: PCP Family Medicine; Visit Provider Family Medicine
DX: E11.9 Type 2 diabetes mellitus without complications (principal); I10 Essential (primary) hypertension; G56.00 Carpal tunnel syndrome, unspecified upper limb
CPT/HCPCS: 83036; 99213

== ENCOUNTER 2024-03-24 10:33 | Outpatient (AMB) | payer MEDICARE, SELFPAY ==
--- NOTE | 2024-03-24 10:52 | A.OFFPC_ITS ---
Vital Signs 03/24/24 10:55 Height 5 ft 2 in Weight 168 lb 4 oz BMI 30.8 BP 140/70 H Blood Pressure Location Lt brachial Position Sitting Respiration 16 Pulse 58 Pulse Source Pulse Oximeter Temp 97.6 F Temp Source Oral Pulse Oximetry (%) 98 Oxygen Delivery Method Room Air Intake Visit Reasons: f/u diabetes Intake Note: f/u DM Allergies clindamycin Allergy (Mild, Uncoded 12/17/23 09:34) Diarrhea Sulfacetamide Sodium Allergy (Unknown, Uncoded 12/17/23 09:34) skin burn when put on face Tobacco use date assessed: 12/17/23 Dental Screening Dental Screen Date: 12/17/23 HPI f/u diabetes HPI Details 73 y/o female presents to f/u diet contr olled diabetes and hypertension. A1c had climbed to 7.3% last office visit - she had wanted to improve lifestyle changes. Has gained about 5 lbs since last office visit in November. A1c today 03/24/24 is 7.3%. She notes she would like to trial another three months of lifestyle changes. Blood pressure today 140/70, 58p. She is on lisinopril 20mg, bisporlol-HCTZ 2.5-6.25mg daily, amlodipine 5mg. She notes blood pressures frequently elevated when she sees a doctor. BP at home have been in the 110s systolic. HPI Comments History of Present Illness Details Documentation assistance for Franki Chappell MD, was provided by Manuel Flores, Dust Collector Operator on 03/24/2024 at 10:59 AM EST. I, Dr. Chappell, have read, observed, and verified documentation. [facility] Medical History Allergic rhinitis Diabetes type 2, uncontrolled HTN (hypertension) Surgical History History of hysterectomy History of oral surgery Family History Father Myocardial infarction Hypertension Mother Hypertension CVD (cardiovascular disease) Stroke TIA (transient ischemic attack) Social History Housing: House Alcohol intake: never Patient Tobacco Use Status: Former Tobacco user e-Cigarette/Vaping Use: Never Used Second Hand Smoke Exposure: No service: No Current occupational status: retired Current occupational exposures/hazards: No Cognitive needs: No Hearing needs: No Vision needs: No Questionnaire Thrive Questionnaire Date Thrive assessed: 05/01/23 SABINO-7 AMB Questionnaire SABINO-7 Date SABINO - 7 assessed: 05/01/23 Source: Developed by Drs. Bryan Saldivar, Maddy Hilton, Nikos Brito and colleagues, with an educational harvey from [employer]. Review of Systems Const Denies chills, Denies fatigue, Denies fever(s), Denies headache(s) and Denies weakness ENT Denies dizziness and Denies headache(s) Card Denies dyspnea Resp Denies cough, Denies dyspnea, Denies wheezing and Denies other (shortness of breath) Musc Denies numbness and Denies tingling Neuro Denies dizziness, Denies headache(s), Denies numbness, Denies tingling and Denies weakness Psych Denies anxiety and Denies depression Endo Denies fatigue Aller/Immun Denies wheezing Physical exam (Primary Care) Vital Signs: Last Vital Signs Temp 97.6 F 03/24/24 10:55 Pulse 58 03/24/24 10:55 Resp 16 03/24/24 10:55 BP 140/70 H 03/24/24 10:55 Pulse Ox 98 03/24/24 10:55 Oxygen Delivery Method Room Air 03/24/24 10:55 BMI result Body Mass Index 30.8 Tobacco/Smoking Status: Tobacco use Status Tobacco use date assessed 12/17/23 03/24/24 10:58 Patient Tobacco Use Status Former Tobacco user 03/24/24 10:58 e-Cigarette/Vaping Use Never Used 03/24/24 10:58 Thrive Assessment: Date of Thrive Assessment Date Thrive assessed 05/01/23 03/24/24 10:58 Const General: well developed; No acute distress Nutritional Appearance: well nourished Orientation/consciousness: patient oriented x3 HENMT Head: Yes normocephalic and Yes atraumatic Eyes General: appearance normal, both eyes and all related structures Pupils: Equal, round and reactive pupils present EOM: EOMs intact bilaterally Resp Effort & Inspection: normal respiratory effort Auscultation: clear to auscultation bilaterally Cardio Rate: regular rate Rhythm: regular rhythm Heart sounds: S1 normal heart sound present, S2 normal heart sound present, no gallops, no murmurs and no rubs Neuro General: patient oriented x3 and gait normal Cranial nerves: Yes Equal, round and reactive pupils present Psych Affect: normal affect Assessment and Plan Assessment & Plan (1) Diabetes type 2, controlled: Code(s): E11.9 - Type 2 diabetes mellitus without complications Plan: A1c?has?increased?from?7.2%?to?7.3%.??This?above?goal?of?less?than?7%. Briefly?discussed?medications. Patient?would?like?3?more?months?to?work?on?diet?exercise?and?weight?loss. We?discussed?that?if?she?is?not?able?to?bring?he r?A1c?below?7?at?next?visit,?we?should?use?a?medication.??Patient?agrees. (2) Essential hypertension: Code(s): I10 - Essential (primary) hypertension Plan: Blood?pressure?is?elevated?in?the?office?today.??She?notes?that?her?blood?pressu res?are?frequently?elevated?when?she?sees?.??She?s ays?that?her?blood?pressures?at?home?are?typically?around?110?systolic. Continue?current?medication Work?at?diet?exercise?and?weight?loss Will?follow (3) Carpal tunnel syndrome: Code(s): G56.00 - Carpal tunnel syndrome, unspecified upper limb Plan: Bilateral?carpal?tunnel?syndrome. She?has?an?appointment?with?her?hand?surgeon,?Dr. Hunter for?carpal?tunnel?surgery. (4) Immunization counseling: Code(s): Z71.85 - Encounter for immunization safety counseling Plan: Patient?has?received?her?pneumonia,?COVID?and?shingles?shots?recently. She?will?be?getting?RSV?and?then?also?flu?shot. Medications: Refilled clotrimazole-betamethasone 1-0.05 % 1 appl topical BID 2 weeks 30 grams 2RF Coding Level of Care Code Est Pt Level 4 (74145) Diagnoses Diabetes type 2, controlled E11.9 Essential hypertension I10 Carpal tunnel syndrome G56.00 Immunization counseling Z71.85
[2024-03-24 10:55] VITALS: BP 140/70; PULSE 58; RESP 16; TEMP 36.4; O2SAT 98; BMI 30.8
== END 2024-03-24 11:34 | disposition home or self-care (01) ==
PROVIDERS: PCP Family Medicine; Visit Provider Family Medicine
DX: E11.9 Type 2 diabetes mellitus without complications (principal); I10 Essential (primary) hypertension; G56.00 Carpal tunnel syndrome, unspecified upper limb; Z71.85 Encounter for immunization safety counseling

== ENCOUNTER → 2024-03-24 10:33 | Outpatient (BNVA) | payer MEDICARE, SELFPAY | PROVIDERS: PCP Family Medicine; Visit Provider Family Medicine | DX: E11.9 Type 2 diabetes mellitus without complications (principal); I10 Essential (primary) hypertension; G56.00 Carpal tunnel syndrome, unspecified upper limb; Z71.85 Encounter for immunization safety counseling | CPT/HCPCS: 99212 ==

== ENCOUNTER 2024-04-03 10:06 | Outpatient (REF) | payer MEDICARE, SELFPAY ==
[2024-04-06 07:23] LABS: TS Negative Control Passed; TS Panel A 0; TS Panel B 0; TS Positive Control Passed; TSpotTB Negative (Negative)
== END 2024-04-03 10:07 | disposition home or self-care (01) ==
LOC: HO.LAB 10:06
PROVIDERS: Absent Provider Dermatology; PCP Family Medicine; Visit Provider Internal Medicine
DX: L40.0 Psoriasis vulgaris (principal); Z79.899 Other long term (current) drug therapy; L40.59 Other psoriatic arthropathy; J30.9 Allergic rhinitis, unspecified; J45.909 Unspecified asthma, uncomplicated
CPT/HCPCS: 36415; 86481; 99212

== ENCOUNTER 2024-04-03 10:06 | Outpatient (AMB) | payer MEDICARE, SELFPAY ==
--- NOTE | 2024-04-03 10:29 | A.OFFVIS_ITS ---
Vital Signs 04/03/24 10:30 Height 5 ft 2 in Weight 167 lb BMI 30.5 BP 132/70 Blood Pressure Location Lt brachial Position Sitting Pulse 61 Pulse Source Pulse Oximeter Pulse Oximetry (%) 98 Oxygen Delivery Method Room Air Intake Visit Reasons: cough Intake Note: pt is here for follow up and states her breathing is great, no coughing, but she does having happening. Manuscripts Curator Required: No Allergies clindamycin Allergy (Mild, Uncoded 04/03/24 10:52) Diarrhea Sulfacetamide Sodium Allergy (Unknown, Uncoded 04/03/24 10:52) skin burn when put on face Medication List - Last Reconciled 04/03/24 by Dahlia Espino MD albuterol sulfate 90 mcg/actuation (ProAir HFA) 2 puffs inhalation Q4-6H PRN 30 days amlodipine 5 mg PO DAILY bisoprolol-hydrochlorothiazide 2.5-6.25 mg 2 tabs PO DAILY 90 days cholecalciferol (vitamin D3) 50 mcg PO DAILY clotrimazole-betamethasone 1-0.05 % 1 appl topical BID 2 weeks cyclosporine 0.05% (Restasis) 1 drp ophthalmic (eye) Q12H fluticasone propionate 50 mcg/actuation (Flonase Allergy Relief) 1 spray intranasal .nightly 30 days lactobacillus combination no.9 (Adult 50 Plus Probiotic) 4,000 mmu cells PO DAILY lisinopril 20 mg PO DAILY loratadine (Allergy Relief (loratadine)) 10 mg PO DAILY multivitamin (Daily Multi-Vitamin tablet) 1 tab PO DAILY 90 days PFS Medical History Allergic rhinitis Diabetes type 2, uncontrolled HTN (hypertension) Surgical History History of hysterectomy History of oral surgery Family History Father Myocardial infarction Hypertension Mother Hypertension CVD (cardiovascular disease) Stroke TIA (transient ischemic attack) Social History Housing: House Alcohol intake: never Patient Tobacco Use Status: Former Tobacco user e-Cigarette/Vaping Use: Never Used Second Hand Smoke Exposure: No service: No Current occupational status: retired Current occupational exposures/hazards: No Cognitive needs: No Hearing needs: No Vision needs: No Review of Systems Const All systems reviewed & are unremarkable except as noted in HPI and below Eyes Reports no additional complaints ENT Reports nasal congestion and Reports nasal discharge (MILD TO MODERATE, OFF AND ON) Card Denies chest pain, Denies irregular heart rhythm and Denies leg edema Resp Reports as per HPI GI Reports no additional complaints Reports no additional complaints Musc Reports no additional complaints Skin/Breast Reports system reviewed and no additional complaints, except as documented Neuro Reports no additional complaints Psych Reports anxiety (MILD OFF AND ON) Endo Reports no additional complaints Alvaro/Lymph Reports no additional complaints Aller/Immun Reports no additional complaints Physical Exam Vital Signs: Last Vital Signs Pulse 61 04/03/24 10:30 BP 132/70 04/03/24 10:30 Pulse Ox 98 04/03/24 10:30 Oxygen Delivery Method Room Air 04/03/24 10:30 BMI result Body Mass Index 30.5 Const General: healthy appearing, comfortable, no acute distress, alert and awake Orientation/consciousness: patient oriented x3 HEENT Head: Yes normal to inspection General nose exam: No nasal polyps present, No nasal discharge present and Other nasal findings present (NO ACTIVE NASAL CONGESTION AT THIS TIME) Face and sinus: Yes sinuses nontender Mouth: oropharynx normal Throat: Yes posterior oropharynx normal Eyes General: appearance normal, both eyes and all related structures Neck Neck: Yes normal visual inspection, Yes no lymphadenopathy, Yes trachea midline and Yes no JVD Thyroid: Thyroid normal Chest Chest palpation & inspection: normal inspection of the chest, normal palpation of entire chest wall and no tenderness Resp Other: PERCUSSION NOTE RESONANT. SHE HAS GOOD BREATH. SOUNDS AND EQUAL ON BOTH SIDES THERE ARE NO WHEEZES CREPITATIONS OR RHONCHI. Cardio Palpation: normal PMI Rate: regular rate Rhythm: regular rhythm Heart sounds: no gallops and no murmurs Peripheral pulses: Peripheral pulses 2+ throughout GI Palpation (GI): Soft to palpation, Tenderness to palpation present (GI), No hepatosplenomegaly present and Palpable mass present Auscultation: normal bowel sounds Back/Spine/Pelvis Thoracic/Lumbar Spine: thoracic and lumbar spine normal to inspection Skin General skin exam: no rashes or lesions noted Neuro General: patient oriented x3 and no focal motor deficits Cranial nerves: Yes CN's II-XII intact bilaterally Extrem General: Yes normal to inspection, Yes no clubbing, cyanosis or edema and Yes no calf tenderness Psych Appearance: grossly normal and well kempt Speech and movement: Normal speech and movement present Assessment & Plan Assessment & Plan (1) Allergic rhinitis: Comment: PATIENT HAS CHRONIC INTERMITTENT ALLERGIC RHINITIS, FLARES UP DUE TO ENVIRONMENTAL CHANGES Code(s): J30.9 - Allergic rhinitis, unspecified Category: Medical Plan: Continue loratadine 10 mg daily. And Flonase as 52 spray each nostril daily. (2) Asthma: Comment: THERE IS A QUESTION OF BRONCHIAL ASTHMA WHICH MAY BE THE CAUSE OF HER ONGOING COUGH. I THINK IT IS RELATED TO ALLERGIC RHINITIS. AT PRESENT SHE DOES NOT HAVE ANY COUGH WHEEZING OR SHORTNESS OF BREATH. SHE HAS STOPPED USING ARNUITY. HAS NOT USED ALBUTEROL INHALER FOR LONG TIME. Code(s): J45.909 - Unspecified asthma, uncomplicated Category: Medical Plan: KEEP ALBUTEROL INHALER ON HAND AND USE 1 OR 2 PUFFS Q 6 HOURS ONLY P.R.N.. NO NEED TO USE ARNUITY REVISIT TO ME ONLY P.R.N. IF THERE IS RECURRENCE OF ASTHMA OR COUGH. Medications: Discontinued fluticasone furoate 100 mcg/actuation (Arnuity Ellipta) Discontinued Reason: No Longer Medically Relevant 1 inh inhalation Q24H PRN Coding Level of Care Code Est Pt Level 3 (91794) Diagnoses Allergic rhinitis J30.9 Asthma J45.909
[2024-04-03 10:30] VITALS: BP 132/70; PULSE 61; O2SAT 98; BMI 30.5
== END 2024-04-03 10:52 | disposition home or self-care (01) ==
PROVIDERS: PCP Family Medicine; Visit Provider Internal Medicine
DX: J30.9 Allergic rhinitis, unspecified (principal); J45.909 Unspecified asthma, uncomplicated
CPT/HCPCS: 99213

== ENCOUNTER 2024-04-15 11:23 | Outpatient (AMB) | payer MEDICARE, SELFPAY ==
--- NOTE | 2024-04-15 11:36 | MHC.OFFWIV ---
Intake Vital Signs 04/15/24 11:42 Height 5 ft 2 in Weight 170 lb BMI 31.1 BP 124/70 Blood Pressure Location Lt brachial Position Sitting Respiration 14 Pulse 68 Pulse Source Pulse Oximeter Temp 97.9 F Temp Source Oral Pulse Oximetry (%) 97 Oxygen Delivery Method Room Air Intake Visit Reasons: Urinary tract infection Intake Note: Patient complainng of frequency urination, discomfort when urinating, and cloudy urine x 3 days Patient Tobacco Use Status: Former Tobacco user Allergies clindamycin Allergy (Mild, Uncoded 04/15/24 11:57) Diarrhea Sulfacetamide Sodium Allergy (Unknown, Uncoded 04/15/24 11:57) skin burn when put on face Medication List - Last Reconciled 04/15/24 by Lucrecia Sanchez, [facility]- amlodipine 5 mg PO DAILY bisoprolol-hydrochlorothiazide 2.5-6.25 mg 2 tabs PO DAILY 90 days cholecalciferol (vitamin D3) 50 mcg PO DAILY clotrimazole-betamethasone 1-0.05 % 1 appl topical BID 2 weeks cyclosporine 0.05% (Restasis) 1 drp ophthalmic (eye) Q12H fluticasone propionate 50 mcg/actuation (Flonase Allergy Relief) 1 spray intranasal .nightly 30 days lactobacillus combination no.9 (Adult 50 Plus Probiotic) 4,000 mmu cells PO DAILY lisinopril 20 mg PO DAILY loratadine (Allergy Relief (loratadine)) 10 mg PO DAILY mirabegron ER (Myrbetriq) 25 mg PO DAILY multivitamin (Daily Multi-Vitamin tablet) 1 tab PO DAILY 90 days Do you need a note to return to daycare/school/sports/work: No HPI HPI Comments History of Present Illness Details 73 y/o with type 2 diabetes hypertension and recurrent uti here today for 2 complaints The 1st is that urinary complaints which started 3 days ago. Reports that she has urinary urgency and frequency along with a tickling sensation inside her lower abdomen. Her symptoms are worse since onset. Reports that her urine is cloudy. Her last UTI was more than 1 year ago. has used cephalexin and nitrofurntoin in the past with + relief She denies any fever, chills, abdominal pain, nausea, vomiting, back pain. She is tolerating p.o. intake. The 2nd is that of pulsatile tinnitus on the left side associated with very sharp pain that radiates up the side of her left neck into the base of her tongue and down into her chest. Reports that it hurts so bad it stops her in her tracks. It has been ongoing on and off for the last year so but seems to be worse over the last 2 months. This is the 1st time she is making mention of this. Reports that she has not even told her family about this. It is not really sure why. She does admit that perhaps she does feel a little bit of anxiety related to this. Exam Awake alert NAD PERRLA, EOMI TM intact and clear on L No carotid bruit on L RRR LS CTAB No CVAT Mild suprapubic tenderness Plan To treat the UTI we will give her nitrofurantoin twice a day for 3 days Check an EKG today normal. CT angio of the head and neck to evaluate her complaints, we will check a CMP today for renal function prior to the exam Case reviewed w/ Pcp Dr Chappell. Advised for her to follow up in 2-3 weeks for the results, sooner if needed. This note is constructed using voice recognition software. While every effort has been made to ensure accuracy in tobacco classer, still errors may have been included Sometimes, these errors may affect the content or meaning of the given sentence . Total time spent caring for the patient today was 60 minutes. This includes time spent before the visit reviewing the chart, time spent during the visit, and time spent after the visit on documentation [facility] Medical History Allergic rhinitis Diabetes type 2, uncontrolled HTN (hypertension) Surgical History History of hysterectomy History of oral surgery Family History Father Myocardial infarction Hypertension Mother Hypertension CVD (cardiovascular disease) Stroke TIA (transient ischemic attack) Social History Housing: House Alcohol intake: never Patient Tobacco Use Status: Former Tobacco user e-Cigarette/Vaping Use: Never Used Second Hand Smoke Exposure: No service: No Current occupational status: retired Current occupational exposures/hazards: No Cognitive needs: No Hearing needs: No Vision needs: No Physical Exam Vital Signs: Last Vital Signs Temp 97.9 F 04/15/24 11:42 Pulse 68 04/15/24 11:42 Resp 14 04/15/24 11:42 BP 124/70 04/15/24 11:42 Pulse Ox 97 04/15/24 11:42 Oxygen Delivery Method Room Air 04/15/24 11:42 BMI result Body Mass Index 31.1 Results AMB Urinalysis, Automated UA Leukoctes 70 Kriss/uL Last Edit by Janine Marc MA on 04/15/24 12:10 UA Nitrite Negative Last Edit by Janine Marc MA on 04/15/24 12:10 UA Urobilinogen 3.5 mg/dL Last Edit by Janine Marc MA on 04/15/24 12:10 UA Protein 0 mg/dL Last Edit by Janine Marc MA on 04/15/24 12:10 UA pH 6.5 Last Edit by Janine Marc MA on 04/15/24 12:10 UA Blood 0 Keaton/uL Last Edit by Janine Marc MA on 04/15/24 12:10 UA Specific [place] 1.005 Last Edit by Janine Marc MA on 04/15/24 12:10 UA Ketone Negative Last Edit by Janine Marc MA on 04/15/24 12:10 UA Bilirubin 0 mg/dL Last Edit by Janine Marc MA on 04/15/24 12:10 UA Glucose 0 mg/dL Last Edit by Janine Marc MA on 04/15/24 12:10 Results Reviewed Results Reviewed: Laboratory Last Values Urine pH (Auto) 6.5 04/15/24 11:56 Specific [place] (Auto) 1.005 04/15/24 11:56 Urine Protein (Auto) 0 mg/dL 04/15/24 11:56 Glucose (UA)(Auto) 0 mg/dL 04/15/24 11:56 Urine Ketones (Auto) Negative 04/15/24 11:56 Urine Blood (Auto) 0 [place]/uL 04/15/24 11:56 Urine Nitrite (Auto) Negative 04/15/24 11:56 Urine Bilirubin (Auto) 0 mg/dL 04/15/24 11:56 Urine Urobilinogen (Auto) 3.5 mg/dL 04/15/24 11:56 Leukocyte Esterase (Auto) 70 Kriss/uL 04/15/24 11:56 Assessment & Plan Assessment & Plan (1) Pulsatile tinnitus of left ear: Code(s): H93.A2 - Pulsatile tinnitus, left ear Plan: . (2) UTI (urinary tract infection): Code(s): N39.0 - Urinary tract infection, site not specified Qualifiers: Urinary tract infection type: acute cystitis Hematuria presence: without hematuria Qualified Code(s): N30.00 - Acute cystitis without hematuria Plan: . Orders: Orders AMB Urinalysis Automated Today Z13.9 - Encounter for screening, unspecified CT angio head neck Today H93.A2 - Pulsatile tinnitus, left ear Comprehensive Met. Panel Today H93.A2 - Pulsatile tinnitus, left ear AMB EKG-In Office Today Z13.6 - Encounter for screening for cardiovascular disorders Medications: New nitrofurantoin monohyd/m-cryst 100 mg must administer with a meal/food 100 mg PO Q12H 3 days 6 caps 0RF Coding Level of Care Code Est Pt Level 5 (40777) Diagnoses Pulsatile tinnitus of left ear H93.A2 Acute cystitis without hematuria N30.00 Urinary tract infection type: acute cystitis Hematuria presence: without hematuria
[2024-04-15 11:42] VITALS: BP 124/70; PULSE 68; RESP 14; TEMP 36.6; O2SAT 97; BMI 31.1
== END 2024-04-15 12:44 | disposition home or self-care (01) ==
PROVIDERS: PCP Family Medicine; Visit Provider Nurse Practitioner Family
DX: H93.A2 Pulsatile tinnitus, left ear (principal); N30.00 Acute cystitis without hematuria

== ENCOUNTER → 2024-04-15 11:23 | Outpatient (BNVA) | payer MEDICARE, SELFPAY | PROVIDERS: PCP Family Medicine; Visit Provider Nurse Practitioner Family | DX: N30.00 Acute cystitis without hematuria (principal); H93.A2 Pulsatile tinnitus, left ear | CPT/HCPCS: 99212 ==

== ENCOUNTER 2024-04-16 11:31 | Outpatient (REF) | payer MEDICARE, SELFPAY ==
[2024-04-16 14:53] LABS: Alanine Aminotransferase 94 U/L (0-31); Albumin Level 3.9 g/dL (3.5-5.0); Alkaline Phosphatase 56 U/L (39-117); Anion Gap 12 (12-20); Aspartate Amino Transferase 72 U/L (5-31); Bilirubin Total 0.7 mg/dL (0.0-1.0); Blood Urea Nitrogen 10 mg/dL (9-16); Calcium 9.9 mg/dL (8.4-10.2); Carbon Dioxide 30 mmol/L (22-29); Chloride 98 mmol/L (96-108); Estimated Glomerular Filt Rate > 60; Glucose Random 180 mg/dL (60-115); Potassium 4.2 mmol/L (3.3-5.1); Sodium 136 mmol/L (135-145); Total Protein 7.6 g/dL (6.5-8.0)
== END 2024-04-16 11:32 | disposition home or self-care (01) ==
LOC: HO.WFDLDS 11:31
PROVIDERS: Visit Provider Nurse Practitioner Family
DX: H93.A2 Pulsatile tinnitus, left ear (principal)
CPT/HCPCS: 36415; 80053

== ENCOUNTER 2024-05-07 12:49 | Outpatient (AMB) | payer MEDICARE, SELFPAY ==
--- NOTE | 2024-05-07 12:53 | MHC.PC.OV ---
Vital Signs 05/07/24 13:03 Height 5 ft 2 in Weight 168 lb 8 oz BMI 30.8 BP 124/64 Blood Pressure Location Rt brachial Position Sitting Respiration 16 Pulse 62 Pulse Source Pulse Oximeter Temp 98.1 F Temp Source Oral Pulse Oximetry (%) 97 Oxygen Delivery Method Room Air Intake Visit Reasons: 2-[address] results Intake Note: patient here for 2-3 wks follow up on CT results Kiln Burner Required: No Is last menstrual period known: No Post menopausal: No Patient : No Allergies clindamycin Allergy (Mild, Uncoded 04/15/24 11:57) Diarrhea Sulfacetamide Sodium Allergy (Unknown, Uncoded 04/15/24 11:57) skin burn when put on face Medication List - Last Reconciled 05/07/24 by Lucrecia Sanchez, CHILDREN'S CHOIR DIRECTOR- amlodipine 5 mg PO DAILY bisoprolol-hydrochlorothiazide 2.5-6.25 mg 2 tabs PO DAILY 90 days cholecalciferol (vitamin D3) 50 mcg PO DAILY clotrimazole-betamethasone 1-0.05 % 1 appl topical BID 2 weeks cyclosporine 0.05% (Restasis) 1 drp ophthalmic (eye) Q12H fluticasone propionate 50 mcg/actuation (Flonase Allergy Relief) 1 spray intranasal .nightly 30 days lactobacillus combination no.9 (Adult 50 Plus Probiotic) 4,000 mmu cells PO DAILY lisinopril 20 mg PO DAILY loratadine (Allergy Relief (loratadine)) 10 mg PO DAILY mirabegron ER (Myrbetriq) 25 mg PO DAILY multivitamin (Daily Multi-Vitamin tablet) 1 tab PO DAILY 90 days Tobacco use date assessed: 05/07/24 Fall risk assessment: No Falls in past year Last assessed Fall Risk: 05/07/24 Dental Screening Dental Screen Date: 05/07/24 Did you have a dental visit in the last 12 months?: Yes Did you have a dental problem in the last 6 months where you did not have access to dental care?: No Was dental information given to patient?: Patient has dentist HPI HPI Comments History of Present Illness Details 73 y/o with type 2 diabetes & hypertension Here today to follow up on complaints of pulsatile tinnitus on L At her visit 2 weeks ago she reported: pulsatile tinnitus on the left side associated with very sharp pain that radiates up the side of her left neck into the base of her tongue and down into her chest. Reports that it hurts so bad it stops her in her tracks. It has been ongoing on and off for the last year so but seems to be worse over the last 2 months. This is the 1st time she is making mention of this. Reports that she has not even told her family about this. It is not really sure why. She does admit that perhaps she does feel a little bit of anxiety related to this. She has not had an episode since last office visit. She does tell me that the pain does radiate into her throat. A CT angio of the head and neck is ordered and scheduled for June 05. She reports that this is the soonest they could get her in. She has anxiety about procedures and imaging. Has used Xanax in the past with positive relief. She also states that she will be restarting her Cosentyx what she has been off for 1 year. Wonders if there is any contraindication with the IV contrast that she will be receiving. Exam Awake alert NAD PERRLA, EOMI TM intact and clear on L No carotid bruit on L RRR LS CTAB Plan CT angio of the head and neck to evaluate her complaints, scheduled for June 05. I have prescribed Xanax to be taken [address] scan. Advised that she will need a ride as she should not drive while taking this medication. I have ordered repeat labs to be done 1 week before to evaluate her renal function. In regards to restarting the Cosentyx I have advised for her to follow up directly with the prescriber on this. I recommend that she follow up with her primary care via telehealth a few days after the CT imaging is done to review the results. Educated on reasons to seek emergency room care. This note is constructed using voice recognition software. While every effort has been made to ensure accuracy in floor helper, still errors may have been included Sometimes, these errors may affect the content or meaning of the given sentence . Total time spent caring for the patient today was 30 minutes. This includes time spent before the visit reviewing the chart, time spent during the visit, and time spent after the visit on documentation [facility] Medical History Allergic rhinitis Diabetes type 2, uncontrolled HTN (hypertension) Surgical History History of hysterectomy History of oral surgery Family History Father Myocardial infarction Hypertension Mother Hypertension CVD (cardiovascular disease) Stroke TIA (transient ischemic attack) Social History Housing: House Alcohol intake: never Patient Tobacco Use Status: Former Tobacco user e-Cigarette/Vaping Use: Never Used Second Hand Smoke Exposure: No service: No Current occupational status: retired Current occupational exposures/hazards: No Cognitive needs: No Hearing needs: No Vision needs: No Questionnaire PHQ-9 Over the last 2 weeks, how often have you been bothered by any of the following problems? 1. Little interest or pleasure in doing things: not at all 2. Feeling down, depressed, or hopeless: not at all 3. Trouble falling or staying asleep, or sleeping too much: several days 4. Feeling tired or having little energy: not at all 5. Poor appetite or overeating: not at all 6. Feeling bad about yourself - or that you are a failure or have let yourself or your family down: not at all 7. Trouble concentrating on things, such as reading the newspaper or watching television: not at all 8. Moving or speaking so slowly that other people could have noticed. Or the opposite - being so fidgety or restless that you have been moving around a lot more than usual: not at all 9. Thoughts that you would be better off or of hurting yourself in some way: not at all Total score: 1 Source: Developed by Drs. Bryan Saldivar, Maddy Hilton, Nikos Brito and colleagues, with an educational harvey from [email or web address]. Thrive Questionnaire Date Thrive assessed: 04/30/24 I am a: Patient What is your living situation today?: I have a steady place to live Within the past 12 months, did the food you bought not last and you didn't have the money to get more?: Never true Within the past 12 months, did you worry whether your food would run out before you got money to buy more?: Never true Do you have trouble paying for medicines?: No Do you have trouble getting transportation to medical appointments?: No Do you have trouble paying your heating and electricity bill?: No Do you have trouble taking care of your child, family member or friend?: No Do you have trouble with day-to-day activities such as bathing, preparing meals, shopping, managing finances, etc.?: No Are you currently unemployed and looking for a job?: No Are you interested in more education?: No Please select the resources that you would like help with: None Currently or been in a relationship where the following occur: No concerns reported THRIVE Score: 0 AUDIT C Alcohol Use Questionnaire (AUDIT-C) 1. How often do you have a drink containing alcohol?: Never 3. How often do you have six or more drinks on one occasion?: Never Total Score: 0 SABINO-7 AMB Questionnaire SABINO-7 Date SABINO - 7 assessed: 05/01/23 Feeling nervous, anxious, or on edge: 0 = Not at all Not being able to stop or control worryin = Not at all Worrying too much about different things: 0 = Not at all Trouble relaxin = Not at all Being so restless that it is hard to sit still: 0 = Not at all Becoming easily annoyed or irritable: 0 = Not at all Feeling afraid as if something awful might happen: 0 = Not at all Total SABINO-7 score (0-4 normal; 5-9 mild; 10-14 moderate; 15-21 severe): 0 Source: Developed by Drs. Bryan Saldivar, Maddy Hilton, Nikos Brito and colleagues, with an educational harvey from [email or web address]. Physical exam (Primary Care) Vital Signs: Last Vital Signs Temp 98.1 F 05/07/24 13:03 Pulse 62 05/07/24 13:03 Resp 16 05/07/24 13:03 BP 124/64 05/07/24 13:03 Pulse Ox 97 05/07/24 13:03 Oxygen Delivery Method Room Air 05/07/24 13:03 BMI result Body Mass Index 30.8 Tobacco/Smoking Status: Tobacco use Status Tobacco use date assessed 05/07/24 05/07/24 13:04 Patient Tobacco Use Status Former Tobacco user 05/07/24 12:56 e-Cigarette/Vaping Use Never Used 05/07/24 12:56 PHQ-9: PHQ-9 Score PHQ-9: Total score 1 05/07/24 12:56 Thrive Assessment: Date of Thrive Assessment Date Thrive assessed 04/30/24 05/07/24 12:56 Currently or been in a relationship where the following occur: No concerns reported Coding Level of Care Code Est Pt Level 4 (86377) Complex EM visit Add On G2211 Diagnoses Pulsatile tinnitus of left ear H93.A2 Assessment & Plan Assessment & Plan (1) Pulsatile tinnitus of left ear: Code(s): H93.A2 - Pulsatile tinnitus, left ear Category: Medical Plan: . Plan . Orders: Orders Comprehensive [place]. Panel Fast Today H93.A2 - Pulsatile tinnitus, left ear Medications: New alprazolam (Xanax) 0.5 mg PO BEDTIME PRN 1 tab 0RF 30 min before procedure
[2024-05-07 13:03] VITALS: BP 124/64; PULSE 62; RESP 16; TEMP 36.7; O2SAT 97; BMI 30.8
== END 2024-05-07 13:26 | disposition home or self-care (01) ==
PROVIDERS: PCP Family Medicine; Visit Provider Nurse Practitioner Family
DX: H93.A2 Pulsatile tinnitus, left ear (principal)

== ENCOUNTER → 2024-05-07 12:49 | Outpatient (BNVA) | payer MEDICARE, SELFPAY | PROVIDERS: PCP Family Medicine; Visit Provider Nurse Practitioner Family | DX: H93.A2 Pulsatile tinnitus, left ear (principal) | CPT/HCPCS: 99212 ==

== ENCOUNTER 2024-05-28 12:02 | Outpatient (REF) | payer MEDICARE, SELFPAY ==
[2024-05-28 14:53] LABS: Alanine Aminotransferase 107 U/L (0-31); Albumin Level 3.9 g/dL (3.5-5.0); Alkaline Phosphatase 48 U/L (39-117); Anion Gap 10 (12-20); Aspartate Amino Transferase 71 U/L (5-31); Bilirubin Total 0.6 mg/dL (0.0-1.0); Blood Urea Nitrogen 13 mg/dL (9-16); Calcium 9.7 mg/dL (8.4-10.2); Carbon Dioxide 30 mmol/L (22-29); Chloride 100 mmol/L (96-108); Estimated Glomerular Filt Rate > 60; Glucose Fasting 135 mg/dL (60-99); Sodium 136 mmol/L (135-145); Total Protein 7.3 g/dL (6.5-8.0)
== END 2024-05-28 12:03 | disposition home or self-care (01) ==
LOC: HO.WFDLDS 12:02
PROVIDERS: Visit Provider Nurse Practitioner Family
DX: H93.A2 Pulsatile tinnitus, left ear (principal)
CPT/HCPCS: 36415; 80053

== ENCOUNTER 2024-06-05 08:50 | Outpatient (REF) | payer MEDICARE, SELFPAY ==
[2024-06-05] MEDS: iohexoL 350 MG/ML 100 ML INFUS..BTL 70 ML IV (09:50)
== END 2024-06-05 08:51 | disposition home or self-care (01) ==
LOC: HO.CT 08:50
PROVIDERS: PCP Family Medicine; Visit Provider Nurse Practitioner Family
DX: H93.A2 Pulsatile tinnitus, left ear (principal)
CPT/HCPCS: 70496; 70498; Q9967

== ENCOUNTER → 2024-06-05 08:53 | Outpatient (BNV) | payer MEDICARE, SELFPAY | PROVIDERS: PCP Family Medicine; Visit Provider Radiology Diagnostic Radiology | DX: H93.A2 Pulsatile tinnitus, left ear (principal) | CPT/HCPCS: 70496 ==

== ENCOUNTER 2024-06-30 11:21 | Outpatient (AMB) | payer MEDICARE, SELFPAY ==
--- NOTE | 2024-06-30 11:39 | MHC.PC.OV ---
Vital Signs 06/30/24 11:41 Height 5 ft 2 in Weight 165 lb 8 oz BMI 30.3 BP 128/60 Blood Pressure Location Rt brachial Position Sitting Respiration 16 Pulse 68 Pulse Source Pulse Oximeter Pulse Oximetry (%) 97 Oxygen Delivery Method Room Air Intake Visit Reasons: f/u diabetes Allergies clindamycin Allergy (Mild, Uncoded 04/15/24 11:57) Diarrhea Sulfacetamide Sodium Allergy (Unknown, Uncoded 04/15/24 11:57) skin burn when put on face Tobacco use date assessed: 05/07/24 Dental Screening Dental Screen Date: 05/07/24 HPI f/u diabetes HPI Details 74 y/o female presents to f/u diabetes, hypertension. She had been diet controlled diabetes but A1c had increased to 7.3% at last check. She had wanted to trial lifestyle changes. Head/neck CTA for pulsatile tinnitus of L ear. Has not been read yet. [facility] Medical History Allergic rhinitis Diabetes type 2, uncontrolled HTN (hypertension) Surgical History History of hysterectomy History of oral surgery Family History Father Myocardial infarction Hypertension Mother Hypertension CVD (cardiovascular disease) Stroke TIA (transient ischemic attack) Social History Housing: House Alcohol intake: never Patient Tobacco Use Status: Former Tobacco user e-Cigarette/Vaping Use: Never Used Second Hand Smoke Exposure: No service: No Current occupational status: retired Current occupational exposures/hazards: No Cognitive needs: No Hearing needs: No Vision needs: No Questionnaire Thrive Questionnaire Date Thrive assessed: 04/30/24 I am a: Patient What is your living situation today?: I have a steady place to live Within the past 12 months, did the food you bought not last and you didn't have the money to get more?: Never true Within the past 12 months, did you worry whether your food would run out before you got money to buy more?: Never true Do you have trouble paying for medicines?: No Do you have trouble getting transportation to medical appointments?: No Do you have trouble paying your heating and electricity bill?: No Do you have trouble taking care of your child, family member or friend?: No Do you have trouble with day-to-day activities such as bathing, preparing meals, shopping, managing finances, etc.?: No Are you currently unemployed and looking for a job?: No Are you interested in more education?: No Please select the resources that you would like help with: None Currently or been in a relationship where the following occur: No concerns reported THRIVE Score: 0 SABINO-7 AMB Questionnaire SABINO-7 Date SABINO - 7 assessed: 05/01/23 Source: Developed by Drs. Bryan Saldivar, Maddy Hilton, Nikos Brito and colleagues, with an educational harvey from [employer]. Review of Systems Const Denies chills, Denies fatigue, Denies fever(s), Denies headache(s) and Denies weakness ENT Denies dizziness and Denies headache(s) Card Denies chest pain, Denies lightheadedness, Denies dyspnea and Denies other (Palpitations) Resp Denies cough, Denies dyspnea, Denies wheezing and Denies other ( shortness of breath) Musc Denies numbness and Denies tingling Neuro Denies dizziness, Denies headache(s), Denies numbness, Denies tingling, Denies paresthesias and Denies weakness Psych Denies anxiety and Denies depression Endo Denies fatigue Aller/Immun Denies wheezing Physical exam (Primary Care) Vital Signs: Last Vital Signs Pulse 68 06/30/24 11:41 Resp 16 06/30/24 11:41 BP 128/60 06/30/24 11:41 Pulse Ox 97 06/30/24 11:41 Oxygen Delivery Method Room Air 06/30/24 11:41 BMI result Body Mass Index 30.3 Tobacco/Smoking Status: Tobacco use Status Tobacco use date assessed 05/07/24 06/30/24 11:41 Patient Tobacco Use Status Former Tobacco user 06/30/24 11:41 e-Cigarette/Vaping Use Never Used 06/30/24 11:41 Thrive Assessment: Date of Thrive Assessment Date Thrive assessed 04/30/24 06/30/24 11:41 Currently or been in a relationship where the following occur: No concerns reported Const General: no acute distress and well developed Nutritional Appearance: well nourished Orientation/consciousness: patient oriented x3 [facility] Head: Yes normocephalic and Yes atraumatic Eyes General: appearance normal, both eyes and all related structures Pupils: Equal, round and reactive pupils present EOM: EOMs intact bilaterally Resp Effort & Inspection: normal respiratory effort Auscultation: clear to auscultation bilaterally Cardio Other: No bruit bilateral carotids Rate: regular rate Rhythm: regular rhythm Heart sounds: S1 normal heart sound present, S2 normal heart sound present, no gallops, no murmurs and no rubs Neuro General: patient oriented x3 and gait normal Cranial nerves: Yes Equal, round and reactive pupils present Psych Affect: normal affect Coding Level of Care Code Est Pt Level 4 (42092) Diagnoses Essential hypertension I10 Diabetes type 2, controlled E11.9 Pulsatile tinnitus of left ear H93.A2 Chest pain R07.9 Assessment & Plan Assessment & Plan (1) Essential hypertension: Code(s): I10 - Essential (primary) hypertension Category: Medical Plan: Blood?pressure?is?controlled.??Goal?is?less?than?140/90 Continue?current?medication (2) Diabetes type 2, controlled: Code(s): E11.9 - Type 2 diabetes mellitus without complications Category: Medical Plan: A1c?7.1%.??Fair?control.??Goal?is?about?7%?for?74-year-old?female?with?diabetes. She?has?diet-controlled Continue?diet-control (3) Pulsatile tinnitus of left ear: Code(s): H93.A2 - Pulsatile tinnitus, left ear Category: Medical Plan: Left?neck?discomfort?with?some?rushing?weaned?or?water?sound?associated?with?this. Also?gets?radiation?of?pain?on?left?side?of?neck?down?into?left-sided?chest Recent?EKG?looked?okay CTA head/Neck has?been?acquired?but?has?not?been?read?yet.??Will?request?report Will?get?a?stress?test (4) Chest pain: Code(s): R07.9 - Chest pain, unspecified Category: Medical Plan: As above
[2024-06-30 11:41] VITALS: BP 128/60; PULSE 68; RESP 16; O2SAT 97; BMI 30.3
== END 2024-06-30 12:34 | disposition home or self-care (01) ==
PROVIDERS: PCP Family Medicine; Visit Provider Family Medicine
DX: I10 Essential (primary) hypertension (principal); E11.9 Type 2 diabetes mellitus without complications; H93.A2 Pulsatile tinnitus, left ear; R07.9 Chest pain, unspecified

== ENCOUNTER → 2024-06-30 11:21 | Outpatient (BNVA) | payer MEDICARE, SELFPAY | PROVIDERS: PCP Family Medicine; Visit Provider Family Medicine | DX: E11.9 Type 2 diabetes mellitus without complications (principal); I10 Essential (primary) hypertension; H93.A2 Pulsatile tinnitus, left ear; R07.9 Chest pain, unspecified; M54.2 Cervicalgia | CPT/HCPCS: 83036; 99212 ==

== ENCOUNTER 2024-07-14 14:29 | Outpatient (AMB) | payer MEDICARE, SELFPAY ==
--- NOTE | 2024-07-14 15:18 | A.OFFPC_ITS ---
Intake Visit Reasons: test results review [phone] Allergies clindamycin Allergy (Mild, Uncoded 04/15/24 11:57) Diarrhea Sulfacetamide Sodium Allergy (Unknown, Uncoded 04/15/24 11:57) skin burn when put on face Tobacco use date assessed: 07/14/24 Fall risk assessment: No Falls in past year Last assessed Fall Risk: 07/14/24 Dental Screening Dental Screen Date: 07/14/24 Did you have a dental visit in the last 12 months?: Yes Did you have a dental problem in the last 6 months where you did not have access to dental care?: No Was dental information given to patient?: Patient has dentist HPI HPI Comments History of Present Illness Details Telehealth The patient is a 74-year-old female presenting to fu on CT results done to eval episodes of acute pain. These episodes are described as sharp and affecting the left side, starting from the neck and radiating to the left side of the tongue, left throat, and chest. The patient mentions that these episodes have occurred a few times throughout the year, with the last one occurring before her recent consultation. She notes a sensation ending in her ear described as that of 'steam,' typically associated with passing out, although she did not lose consciousness during these events. The patient denies involvement of jaw pain. She reports that Dr. Chappell suggested a stress test, but the appointment for it had not been scheduled. Mild atherosclerotic calcified plaque is seen in the region of left brachiocephalic and right subclavian arteries - Former smoker with cessation reported 7 years ago - No current alcohol use but previously consumed Kahlua occasionally Results - CTA of head/neck - (EKG): Normal 06/30/24 - pcp note 06/30/24 Plan - I ordered the stress test - Follow up with Dr. Chappell after stre ss test for further evaluation and management. Patient was informed and verbally consented to the use of an ambient scribe for clinic note documentation during this visit. Discussion Notes I discussed with the patient that her recent imaging, showing no indications of significant arterial blockage except for mild plaque, which is not concerning for immediate interventions. We reviewed the importance of conducting a stress test to evaluate potential cardiac causes for her symptoms, iThe patient was informed of the need to schedule the stress test and has been advised to follow up with Dr. Chappell post-test for further plan of care. Patient Instructions - Follow up promptly to ensure the stres s test is scheduled. - Attend the appointment with Dr. Honey tucker after completing the stress test.e. - Note any recurrence of acute pain epis odes and report them immediately. - Check for any messages through the [facility] portal for test results or further instructions. - Maintain current health practices and notify healthcare providers of any changes. Total time spent caring for the patient today was 28 minutes. This includes time spent before the visit reviewing the chart, time spent during the visit, and time spent after the visit on documentation, reviewing laboratory results, diagnostic imaging, medications, performing a medically necessary evaluation, counseling on diagnoses, care coordination, ordering appropriate tests, ordering appropriate medications, review of tests performed by other providers, reporting test results with the patient, communication with other healthcare providers. [facility] Medical History Allergic rhinitis Diabetes type 2, uncontrolled HTN (hypertension) Surgical History History of hysterectomy History of oral surgery Family History Father Myocardial infarction Hypertension Mother Hypertension CVD (cardiovascular disease) Stroke TIA (transient ischemic attack) Social History Housing: House Alcohol intake: never Patient Tobacco Use Status: Former Tobacco user e-Cigarette/Vaping Use: Never Used Second Hand Smoke Exposure: No service: No Current occupational status: retired Current occupational exposures/hazards: No Cognitive needs: No Hearing needs: No Vision needs: No Questionnaire Thrive Questionnaire Date Thrive assessed: 04/30/24 I am a: Patient What is your living situation today?: I have a steady place to live Within the past 12 months, did the food you bought not last and you didn't have the money to get more?: Never true Within the past 12 months, did you worry whether your food would run out before you got money to buy more?: Never true Do you have trouble paying for medicines?: No Do you have trouble getting transportation to medical appointments?: No Do you have trouble paying your heating and electricity bill?: No Do you have trouble taking care of your child, family member or friend?: No Do you have trouble with day-to-day activities such as bathing, preparing meals, shopping, managing finances, etc.?: No Are you currently unemployed and looking for a job?: No Are you interested in more education?: No Please select the resources that you would like help with: None Currently or been in a relationship where the following occur: No concerns reported THRIVE Score: 0 AUDIT C Alcohol Use Questionnaire (AUDIT-C) 3. How often do you have six or more drinks on one occasion?: Never Total Score: 0 SABINO-7 AMB Questionnaire SABINO-7 Date SABINO - 7 assessed: 05/01/23 Source: Developed by Drs. Bryan Saldivar, Maddy Hilton, Nikos Brito and colleagues, with an educational harvey from [employer]. Physical exam (Primary Care) Tobacco/Smoking Status: Tobacco use Status Tobacco use date assessed 05/07/24 06/30/24 11:41 Patient Tobacco Use Status Former Tobacco user 06/30/24 11:41 e-Cigarette/Vaping Use Never Used 06/30/24 11:41 Thrive Assessment: Date of Thrive Assessment Date Thrive assessed 04/30/24 06/30/24 11:41 Currently or been in a relationship where the following occur: No concerns reported Telehealth Telehealth Telehealth Platform: [facility] Location of provider rendering services: practice address Location of patient: address on file Patient Identification confirmed using: Name, : Yes Telehealth method: voice only Patient verbally consented to treatment: Yes Patient verbally consented to billing insurance company: Yes Patient informed of any privacy concerns related to visit: Yes Minutes spent on Phone/Video with Pt.: 16 Results Reviewed Results Reviewed: [address] [address] [address] Scan Report Signed Patient: Irene Paulino MR#: [id number] : 1950 Acct:[id number] Age/Sex: 74 / F ADM Date: 06/05/24 Loc: HO.CT Attending Dr: Lucrecia SRINIVASAN Ordering Physician: Lucrecia Sanchez Date of Service: 06/05/24 Procedure(s): CT angio head neck Accession Number(s): [id number] cc: Franki Chappell MD; Lucrecia Sanchez REGISTER CLERK-BC~ Report Number: [id number]: Total DLP = 2436.00 mGy-cm EXAMINATION: CT ANGIOGRAM NECK CLINICAL INFORMATION: Pulsatile tinnitus, left ear COMPARISON: None available. TECHNIQUE: 5 minute thin axial and reformatted 8 mm thin sagittal and coronal images of head and neck were obtained without and with IV 70 mL Omnipaque 350. DLP: 2436. This CT examination was performed using dose optimization techniques as appropriate, variously including the following: *Automated exposure control *Adjustment of mA and/or kV according to patient size (this includes techniques or standardized protocols for targeted exams where dose is matched to indication/reason for exam; i.e. extremities or head) *Use of iterative reconstruction technique FINDINGS: Visualized intracranial brain parenchyma appears unremarkable. Postcontrast there is normal enhancement of the vascular structures. No stenosis, dissection or aneurysm seen. A dominant left vertebral artery is present. The basal artery is widely patent. No aneurysm or dissection seen in the posterior fossa. No enhancing mass seen in the supra or infratentorial brain parenchyma. Bilateral paranasal sinuses and mastoid air cells are well-aerated. Visualized nasal cavity, nasopharynx and pharyngeal airway is widely patent. No soft tissue mass or enhancement seen. The parapharyngeal soft tissues are normal. No abnormal neck adenopathy or enhancing mass seen in the oropharynx, pharynx or the laryngeal regions. No abnormal neck lymphadenopathy or mass seen. Both carotid and vertebral arteries are patent with a dominant left vertebral artery is noted. Mild atherosclerotic calcified plaque is seen in the region of left brachiocephalic and right subclavian arteries. The lung apices are clear. Mild spondylosis cervical spine and facet arthropathy. CT/CT angio head neck IMPRESSION: Unremarkable CTA head and neck exam. No visible soft tissue mass, lymph node or abnormal enhancement. Electronically signed by: Odilon Amanda MD 07/09/2024 02:48 PM [facility] Dictated By: Odilon Amanda MD Signed By: <Electronically signed by Odilon Amanda MD in OV> 07/09/24 1448 DD/ 6 TD/TT: 06/05/24924 Process Improvement Consultant: [place] Coding Level of Care Code Tele Est Pt Level 3 (00785) Complex EM visit Add On G2211 Diagnoses Other chest pain R07.89 Chest pain type: other chest pain Pulsatile tinnitus of left ear H93.A2 Coronary artery disease involving [place] coronary artery of [place] heart without angina pectoris I25.10 Coronary Disease-Associated Artery/Lesion type: [place] artery [place] vs. transplanted heart: [place] heart Associated angina: without angina Assessment & Plan Assessment & Plan (1) Chest pain: Code(s): R07.9 - Chest pain, unspecified Category: Medical Qualifiers: Chest pain type: other chest pain Qualified Code(s): R07.89 - Other chest pain (2) Pulsatile tinnitus of left ear: Code(s): H93.A2 - Pulsatile tinnitus, left ear Category: Medical (3) CAD (coronary artery disease): Comment: cta 05/2024 Mild atherosclerotic calcified plaque is seen in the region of left brachiocephalic and right subclavian arteries Code(s): I25.10 - Atherosclerotic heart disease of [place] coronary artery without angina pectoris Category: Medical Qualifiers: Coronary Disease-Associated Artery/Lesion type: [place] artery [place] vs. transplanted heart: [place] heart Associated angina: without angina Qualified Code(s): I25.10 - Atherosclerotic heart disease of [place] coronary artery without angina pectoris Plan . Orders: Orders NM cardiolite stress test Today R07.9 - Chest pain, unspecified [place] stress test Today R07.9 - Chest pain, unspecified
== END 2024-07-15 11:30 | disposition home or self-care (01) ==
LOC: HO.HMCFM 14:29
PROVIDERS: PCP Family Medicine; Visit Provider Nurse Practitioner Family
DX: R07.89 Other chest pain (principal); H93.A2 Pulsatile tinnitus, left ear; I25.10 Atherosclerotic heart disease of native coronary artery without angina pectoris

== ENCOUNTER 2024-08-13 13:39 | Outpatient (AMB) | payer OTHER, MEDICARE, SELFPAY ==
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
[2024-08-13 13:52] VITALS: BP 136/64; PULSE 66; O2SAT 97; BMI 30.2
--- OUTSIDE RECORDS SUMMARY | 2024-08-13 14:00 | XMS_ITS | Encounter Summary ---
Author Organization [facility] [address] Address [address] [place] [address] Care Team Providers Care Linoleum Layer Helper Name Role Phone Franki Chappell MD Primary Care Provider Encounter Details Date Type Department Care Team (Late st Contact Info) Description 08/06/2024 Telephone Orthopedic Surgery [facility] [address] [facility] [address] [place] [address] Jessica Gonzáles Social History Tobacco Use Types Packs/Day Years Used Date Smoking Tobacco: Never Assessed Comments Unknown Sex and Gender Information Value Date Recorded Sex Assigned at Not on file Legal Sex Female 11:40 AM EDT Gender Identity Not on file Sexual Orientation Not on file documented as of this encounter Progress Notes * Claudette Swanson - 08/06/2024 4:13 PM EST Pt returned call to surgery [phone] * Jessica Gonzáles - 08/06/2024 2:32 PM EST Outreach made to patient regarding the date of her upcoming surgery with Dr. Hunter. Unfortunately, Dr. Hunter is not going to be in the office on September 17, 2024 so we do need to look for a new surgerydate. Message was left for the patient to please call the office so we can get the surgery rescheduled. -Jessica documented in this encounter Plan of Treatment Upcoming Encounters Date Type Department Care Team (Latest Contact Info) Description 10/14/2024 11:15 AM EDT Consult Orthopedic Surgery - [place] [address] [phone] Maribell Hunter MD [address] [phone] 10/22/2024 1:45 PM EDT Hospital Encounter [facility] [place] [address] [place] [phone] Maribell Hunter MD [address] [phone] 10/22/2024 1:45 PM EDT - 10/22/2024 3:00 PM EDT Surgery [facility] OR [address] [place] [phone] Maribell Hunter MD [address] [phone] RELEASE CARPAL TUNNEL ENDOSCOPIC [[id number] (CPT??)] 11/03/2024 11:15 AM EDT Office Visit Orthopedic Surgery - [place] [address] [phone] Claudette Gauthier PA [address] [phone] Scheduled Procedures Name Priority Associated Diagnoses Date/Ti vt RELEASE CARPAL TUNNEL ENDOSCOPIC Right carpal tunnel syndrome 10/22/2024 1:45 PM EDT documented as of this encounter Visit Diagnoses Not on filedocumented in this encounter Care Teams Linoleum Layer Helper Relationship Specialty Start Date End Date Franki Chappell MD [address] [place] [phone] PCP - General Family Medicine 05/20/24 documented as of this encounter
--- OUTSIDE RECORDS SUMMARY | 2024-08-13 14:00 | XMS_ITS | Clinical Summary ---
Author Organization 175 [facility] Address 175 [place] [address] Phone Care Team Providers Care Low Altitude Air Defense Gunner Name Role Phone Franki Chappell MD Primary Care Provider Allergies Active Allergy Reactions Criticality Noted Date Comments Clindamycin 02/13/2024 Sulfa (Sulfonamide Antibiotics) 01/24 Medications HYDROCHLOROTHIA ZIDE ORAL Take 5-12.5 mg by mouth. Active lisinopriL (PRINIVIL,ZESTR IL) 20 mg tablet Take 1 tablet (20 mg total) by mouth 1 (one) time each day. Active amLODIPine (NORVASC) 2.5 mg tablet Take 1 tablet (2.5 mg total) by mouth 1 (one) time each day. Active cycloSPORINE (RESTASIS) 0.05 % ophthalmic emulsion apply to the eye. Active fluticasone furoate (Arnuity Ellipta) 100 mcg/actuation blister with device inhaler Inhale into the lungs. Active fesoterodine 4 mg tablet extended release 24 hr Take by mouth. A ctive fluticasone propionate (FLONASE) 50 mcg/actuation nasal spray 2 Sprays by Each Nare route daily. Active naproxen sodium (ANAPROX) 110 MG tablet Take by mouth. Activ e multivitamin (MULTIPLE VITAMINS ORAL) Take by mouth. Active ALPRAZolam (XANAX) 0.5 mg tablet TAKE 1 TABLET BY MOUTH IF NEEDED 30 MINUTES BEFORE PROCEDURE 4 Active bisoprolol-hydr oCHLOROthiazide (ZIAC) 2.5-6.25 mg per tablet Take 2 tablets by mouth 1 (one) time each day. 4 Active Pulmicort Flexhaler 90 mcg/actuation inhaler Inhale 1 puff by mouth every 12 (twelve) hours. 4 Active clotrimazole-be tamethasone (LOTRISONE) 1-0.05 % cream APPLY TOPICALLY TO THE AFFECTED AREA TWICE DAILY FOR 2 WEEKS 4 Active ibuprofen (ADVIL,MOTRIN) 600 mg tablet Take 1 tablet (600 mg total) by mouth every 6 (six) hours if needed. for pain 4 Active Myrbetriq 25 mg 24 hr tablet Take 1 tablet (25 mg total) by mouth 1 (one) time each day. 4 Active nitrofurantoin, macrocrystal-mo nohydrate, (MACROBID) 100 mg capsule TAKE 1 CAPSULE BY MOUTH EVERY 12 HOURS FOR 3 DAYS WITH FOOD/MEAL 4 Active trospium (SANCTURA) 20 mg tablet Take 1 tablet (20 mg total) by mouth 2 (two) times a day. 4 Active Active Problems Problem Noted Date Diagnosed Date Bilateral carpal tunnel syndrome 05/20/2024 Right carpal tunnel syndrome 05/20/2024 Encounters Date Type Department Care Team Description 08/06/2024 Telephone Orthopedic Surgery [facility] 250 175 [facility] 250 [place] [phone] Jessica Gonzáles 05/21/2024 Telephone Orthopedic Surgery [facility] [address] [phone] Maribell Hunter MD SURGERY 05/20/2024 11:15 AM EST Office Visit Orthopedic Surgery [facility] [address] [phone] Maribell Hunter MD Bilateral carpal tunnel syndrome (Primary Dx); Right carpal tunnel syndrome from Last 3 Months Social History Tobacco Use Types Packs/Day Years Used Date Smoking Tobacco: Never Assessed Comments Unknown Sex and Gender Information Value Date Recorded Sex Assigned at Not on file Legal Sex Female 11:40 AM EDT Gender Identity Not on file Sexual Orientation Not on file Last Filed Vital Signs Vital Sign Reading Time Taken Comments Blood Pressure - - Pulse - - Temperature - - Respiratory Rate - - Oxygen Saturation - - Inhaled Oxygen Concentration - - Weight 76.2 kg (168 lb) 05/20/2024 11:15 AM EST Height 157.5 cm (5' 2 ) 05/20/2024 11:15 AM EST Body Mass Index 30.73 05/20/2024 11:15 AM EST Plan of Treatment Upcoming Encounters Date Type Department Care Team (Latest Contact Info) Description 10/14/2024 11:15 AM EDT Consult Orthopedic Surgery [facility] [address] [phone] Maribell Hunter MD [address] [phone] 10/22/2024 1:45 PM EDT Hospital Encounter [facility] Main OR [address] [place] [phone] Maribell Hunter MD [address] [phone] 10/22/2024 1:45 PM EDT - 10/22/2024 3:00 PM EDT Surgery [facility] Main OR [address] [place] [phone] Maribell Hunter MD [address] [phone] RELEASE CARPAL TUNNEL ENDOSCOPIC [[id number] (CPT??)] 11/03/2024 11:15 AM EDT Office Visit Orthopedic [facility] [address] [phone] Claudette Gauthier PA [address] [phone] Scheduled Procedures Name Priority Associated Diagnoses Date/Ti me RELEASE CARPAL TUNNEL ENDOSCOPIC Right carpal tunnel syndrome 10/22/2024 1:45 PM EDT Health Maintenance Due Date Last Done Comments Diabetes: Annual Foot Exam 1958 Diabetes: Annual Retina Eye Exam 1960 DTaP,Tdap,and Td Vaccines (1 - Tdap) 1967 Diabetes: Annual GFR (Glomerular Filtration Rate) 11/24/2020 11/25/2019 Cholesterol Screening (Lipid Panel) 04/08/2024 Depression Screening 04/08/2024 Falls Risk Assessment 04/08/2024 Hepatitis C Screening 04/08/2024 Medicare Annual Wellness Visit 04/08/2024 Osteoporosis Screening (Bone Density Screening) 04/08/2024 Social Influencers of Health Screening 04/08/2024 Diabetes: Annual Urine Albumin-Creatinine Ratio (uACR) 05/20/2024 11/26/2019 Diabetes: Blood Sugar Control Test (HGBA1C) 05/20/2024 Hypertension/CHF/CAD Annual BMP Blood Test 05/20/2024 11/25/2019 Zoster Vaccines Completed 12/17/2023, 10/14/2023 COVID-19 Vaccine Completed 03/03/2024, 01/2023, 04/26/2022, Additional history exists Pneumococcal Vaccine: 50+ Years Completed 03/17/2024 RSV Immunization Patients 60+ Years Old Completed 03/31/2024 Influenza Vaccine Completed 04/14/2024, , 04/04/2022, Additional history exists HIB Vaccines Aged Out No longer eligi ble based on patient's age to complete this topic HPV Vaccines Aged Out No longer eligi ble based on patient's age to complete this topic Hepatitis A Vaccines Aged Out No long er eligible based on patient's age to complete this topic Hepatitis B Vaccines Aged Out No long er eligible based on patient's age to complete this topic IPV Vaccines Aged Out No longer eligi ble based on patient's age to complete this topic MMR Vaccines Aged Out No longer eligi ble based on patient's age to complete this topic Meningococcal ACWY Vaccine Aged Out N o longer eligible based on patient's age to complete this topic Meningococcal B Vacine Aged Out No lo nger eligible based on patient's age to complete this topic RSV Immunization Patients Under 20 months Aged Out No longer eligible based on patient's age to complete this topic Varicella Vaccines Aged Out No longer eligible based on patient's age to complete this topic Insurance MEDICARE [place]ID - [place] [facility] Care Teams Low Altitude Air Defense Gunner Relationship Specialty Start Date End Date Franki Chappell MD [address] [place] [address] PCP - General Family Medicine 05/20/24
== END 2024-08-13 14:22 | disposition home or self-care (01) ==
PROVIDERS: PCP Family Medicine; Visit Provider Physician Assistant
DX: S13.4XXA Sprain of ligaments of cervical spine, initial encounter (principal); I10 Essential (primary) hypertension; V89.2XXA Person injured in unspecified motor-vehicle accident, traffic, initial encounter

== ENCOUNTER 2024-08-21 15:38 | Outpatient (AMB) | payer OTHER, SELFPAY ==
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
--- OUTSIDE RECORDS SUMMARY | 2024-08-21 19:00 | XMS_ITS | Encounter Summary ---
Author Organization [facility] Address [address] [place] [address] Care Team Providers Care Gate Manager Name Role Phone Franki Chappell MD Primary Care Provider [phone] Encounter Details Date Type Department Care Team (Late st Contact Info) Description 08/06/2024 Telephone Orthopedic Surgery [facility] 250 175 [facility] 250 [place] [address] Jessica Gonzáles Social History Tobacco [...] PM EST Pt returned call to surgery [phone] * Jessica Gonzáles - 08/06/2024 2:32 PM [...] 11:15 AM EDT Consult Orthopedic Surgery - [place] [address] [phone] Maribell Hunter MD [address] [phone] 10/22/2024 1:45 PM EDT Hospital Encounter [facility] Main OR [address] [place] [phone] Maribell Hunter MD [address] [phone] 10/22/2024 1:45 PM EDT - 10/22/2024 3:00 PM EDT Surgery [facility] Main OR [address] [place] [phone] Maribell Hunter MD [address] [phone] RELEASE CARPAL TUNNEL ENDOSCOPIC [[id number] (CPT??)] 11/03/2024 11:15 AM EDT Office Visit [facility] [place] [address] [phone] Claudette Gauthier PA [address] [phone] Scheduled Procedures Name Priority Associated Diagnoses Date/Ti ma RELEASE CARPAL TUNNEL ENDOSCOPIC Right carpal tunnel syndrome 10/22/2024 1:45 PM EDT documented as of this encounter Visit Diagnoses Not on filedocumented in this encounter Care Teams Gate Manager Relationship Specialty Start Date End Date Franki Chappell MD [address] [place] [phone] PCP - General Family Medicine 05/20/24 documented as of this encounter
--- OUTSIDE RECORDS SUMMARY | 2024-08-21 19:00 | XMS_ITS | Clinical Summary ---
Author Organization [address] [facility] Address 175 [place] [address] Phone Care Team Providers Care Marina Manager Name Role Phone Franki Chappell MD Primary Care Provider [phone] Allergies Active Allergy Reactions Criticality Noted Date [...] Care Team Description 08/06/2024 Telephone Orthopedic Surgery [facility] 250 175 [facility] 250 [place] [phone] Jessica Gonzáles 05/21/2024 Telephone Orthopedic Surgery [facility] 175 [facility] 140 [place] [phone] Maribell Hunter MD SURGERY from Last 3 Months Social History Tobacco [...] 10/14/2024 11:15 AM EDT Consult Orthopedic Surgery [facility] [address] [phone] Maribell Hunter MD [address] [phone] 10/22/2024 1:45 PM EDT Hospital Encounter [facility] Main OR [address] [place] [phone] Maribell Hunter MD [address] [phone] 10/22/2024 1:45 PM EDT - 10/22/2024 3:00 PM EDT Surgery [facility] Main OR [address] [place] [phone] Maribell Hunter MD [address] [phone] RELEASE CARPAL TUNNEL ENDOSCOPIC [[id number] (CPT??)] 11/03/2024 11:15 AM EDT Office Visit Orthopedic Surgery [facility] [address] [phone] Claudette Gauthier PA [address] [phone] Scheduled Procedures Name Priority Associated Diagnoses Date/Ti [...] this topic Insurance MEDICARE [place] - [place] [facility] Care Teams Marina Manager Relationship Specialty Start Date End Date Franki Chappell MD [address] [place] [address] PCP - General Family Medicine 05/20/24
== END 2024-08-21 17:05 | disposition home or self-care (01) ==
LOC: HO.HMCFM 15:38
PROVIDERS: PCP Family Medicine; Visit Provider Physician Assistant
DX: S13.4XXA Sprain of ligaments of cervical spine, initial encounter (principal); V89.2XXA Person injured in unspecified motor-vehicle accident, traffic, initial encounter

== ENCOUNTER → 2024-08-21 15:38 | Outpatient (BNVA) | payer OTHER, MEDICARE, SELFPAY | PROVIDERS: PCP Family Medicine; Visit Provider Physician Assistant ==

== ENCOUNTER 2024-08-26 10:36 | Outpatient (AMB) | payer MEDICARE, SELFPAY ==
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
[2024-08-26 10:48] VITALS: BP 134/64; PULSE 66; O2SAT 95; BMI 29.8
--- OUTSIDE RECORDS SUMMARY | 2024-08-26 12:58 | XMS_ITS | Clinical Summary ---
Author Organization 175 [facility] Address [address] [place] [address] Phone Care Team Providers Care Early Morning Babysitter Name Role Phone Franki Chappell MD Primary [...] Care Team Description 08/06/2024 Telephone Orthopedic Surgery [facility] 250 175 [facility] 250 [place] [phone] Jessica Gonzáles from Last 3 Months Social History Tobacco [...] 10/14/2024 11:15 AM EDT Consult Orthopedic Surgery [facility] 175 [facility] 140 [place] [phone] Maribell Hunter MD [address] [phone] 10/22/2024 1:45 PM EDT Hospital Encounter [facility] Main OR [address] [place] [phone] Maribell Hunter MD [address] [phone] 10/22/2024 1:45 PM EDT - 10/22/2024 3:00 PM EDT Surgery [facility] Main OR [address] [place] [phone] Maribell Hunter MD [address] [phone] RELEASE CARPAL TUNNEL ENDOSCOPIC [[id number] (CPT??)] 11/03/2024 11:15 AM EDT Office Visit Orthopedic Surgery - [place] [address] [phone] Claudette Gauthier PA [address] [phone] Scheduled Procedures Name Priority Associated Diagnoses Date/Ti [...] this topic Insurance MEDICARE MED[place]ID - [place] [facility] Care Teams Early Morning Babysitter Relationship Specialty Start Date End Date Franki Chappell MD [address] [place] [address] PCP - General Family Medicine 05/20/24
--- OUTSIDE RECORDS SUMMARY | 2024-08-26 12:58 | XMS_ITS | Encounter Summary ---
Author Organization [facility] Address [address] [place] [address] Care Team Providers Care Tissue Technologist Name Role Phone Franki Chappell MD Primary Care Provider Encounter Details Date Type Department Care Team (Late st Contact Info) Description 08/06/2024 Telephone Orthopedic Surgery [facility] 250 175 [facility] 250 [place] [address] Jessica Gonzáles Social History Tobacco [...] PM EST Pt returned call to surgery [phone] * Jessica Gonzáles - 08/06/2024 2:32 PM [...] 11:15 AM EDT Consult Orthopedic Surgery - [place] [address] [phone] Maribell Hunter MD [address] [phone] 10/22/2024 1:45 PM EDT Hospital Encounter [facility] Main OR [address] [place] [phone] Maribell Hunter MD [address] [phone] 10/22/2024 1:45 PM EDT - 10/22/2024 3:00 PM EDT Surgery [facility] Main OR [address] [place] [phone] Maribell Hunter MD [address] [phone] RELEASE CARPAL TUNNEL ENDOSCOPIC [[id number] (CPT??)] 11/03/2024 11:15 AM EDT Office Visit Orthopedic Surgery - [place] [address] [phone] Claudette Gauthier PA [address] [phone] Scheduled Procedures Name Priority Associated Diagnoses Date/Ti wy RELEASE CARPAL TUNNEL ENDOSCOPIC Right carpal tunnel syndrome 10/22/2024 1:45 PM EDT documented as of this encounter Visit Diagnoses Not on filedocumented in this encounter Care Teams Tissue Technologist Relationship Specialty Start Date End Date Franki Chappell MD [address] [place] [phone] PCP - General Family Medicine 05/20/24 documented as of this encounter
== END 2024-08-26 11:32 | disposition home or self-care (01) ==
PROVIDERS: PCP Family Medicine; Visit Provider Nurse Practitioner Family
DX: R74.01 Elevation of levels of liver transaminase levels (principal); K76.0 Fatty (change of) liver, not elsewhere classified
CPT/HCPCS: 99204

== ENCOUNTER → 2024-08-26 10:36 | Outpatient (BNVA) | payer MEDICARE, SELFPAY | PROVIDERS: PCP Family Medicine; Visit Provider Nurse Practitioner Family | DX: R74.01 Elevation of levels of liver transaminase levels (principal); K76.0 Fatty (change of) liver, not elsewhere classified | CPT/HCPCS: 99202 ==

== ENCOUNTER 2024-08-28 11:17 | Outpatient (REF) | payer MEDICARE, SELFPAY ==
--- OUTSIDE RECORDS SUMMARY | 2024-08-28 13:52 | XMS_ITS | Encounter Summary ---
Author Organization [facility] Address [address] [place] [address] Care Team Providers Care Ore Smelter Name Role Phone Franki Chappell MD Primary Care Provider [phone] Encounter Details Date Type Department Care Team (Late st Contact Info) Description 08/06/2024 Telephone Orthopedic Surgery [facility] 250 175 [facility] 250 [place] [address] Jessica Gonzáles Social History Tobacco Use Types Packs/Day Years Used Date Smoking Tobacco: Never Assessed Comments Unknown Sex and Gender Information Value Date Recorded Sex Assigned at Not on file Legal Sex Female 11:40 AM EDT Gender Identity Not on file Sexual Orientation Not on file documented as of this encounter Progress Notes * Clauedtte Swanson - 08/06/2024 4:13 PM EST Pt returned call to surgery [phone] * Jessica Gonzáles - 08/06/2024 2:32 PM [...] 11:15 AM EDT Consult Orthopedic Surgery - [place] [address] [phone] Maribell Hunter MD [address] [phone] 10/22/2024 1:45 PM EDT Hospital Encounter [facility] Main OR [address] [place] [phone] Maribell Hunter MD [address] [phone] 10/22/2024 1:45 PM EDT - 10/22/2024 3:00 PM EDT Surgery [facility] Main OR 271 [place] [phone] Maribell Hunter MD [address] [phone] RELEASE CARPAL TUNNEL ENDOSCOPIC [[id number] (CPT??)] 11/03/2024 11:15 AM EDT Office Visit Orthopedic Surgery - [place] [address] [phone] Claudette Gauthier PA [address] [phone] Scheduled Procedures Name Priority Associated Diagnoses Date/Ti id RELEASE CARPAL TUNNEL ENDOSCOPIC Right carpal tunnel syndrome 10/22/2024 1:45 PM EDT documented as of this encounter Visit Diagnoses Not on filedocumented in this encounter Care Teams Ore Smelter Relationship Specialty Start Date End Date Franki Chappell MD [address] [place] [phone] PCP - General Family Medicine 05/20/24 documented as of this encounter
--- OUTSIDE RECORDS SUMMARY | 2024-08-28 13:52 | XMS_ITS | Clinical Summary ---
Author Organization 175 [facility] Address 175 [place] [address] Phone Care Team Providers Care Personnel Clerks Supervisor Name Role Phone Franki Chappell MD Primary [...] Care Team Description 08/06/2024 Telephone Orthopedic Surgery [facility] 250 175 [facility] 250 [place] [phone] Jessica Gonzáles from Last 3 Months Social [...] 10/14/2024 11:15 AM EDT Consult Orthopedic Surgery [facility] 175 [facility] 140 [place] [phone] Maribell Hunter MD [address] [phone] 10/22/2024 1:45 PM EDT Hospital Encounter [facility] Main OR 271 [place] [phone] Maribell Hunter MD [address] [phone] 10/22/2024 1:45 PM EDT - 10/22/2024 3:00 PM EDT Surgery [facility] Main OR [address] [place] [phone] Maribell Hunter MD [address] [phone] RELEASE CARPAL TUNNEL ENDOSCOPIC [[id number] (CPT??)] 11/03/2024 11:15 AM EDT Office Visit Orthopedic Surgery - [place] [address] [phone] Claudette Gauthier PA [address] [phone] Scheduled Procedures Name Priority Associated [...] this topic Insurance MEDICARE MED[place] - [place] [facility] Care Teams Personnel Clerks Supervisor Relationship Specialty Start Date End Date Franki Chappell MD 575 [place] [address] PCP - General Family Medicine 05/20/24
[2024-08-28 14:41] LABS: INTERNATIONAL NORM RATIO 0.9 (0.9-1.1); Prothrombin Time 10.9 SEC (10.9-12.4)
[2024-08-28 15:35] LABS: Alanine Aminotransferase 69 U/L (0-31); Alkaline Phosphatase 47 U/L (39-117); Aspartate Amino Transferase 39 U/L (5-31); Bilirubin Direct 0.2 mg/dL (0.0-0.5); Bilirubin Total 0.6 mg/dL (0.0-1.0); C Reactive Protein 0.22 mg/dL (< or = 0.50); Ferritin 176 ng/mL (10-250); Iron 100 mcg/dL (30-160); Percent Iron Saturation 29 % (15-50); Total Iron Binding Capacity 347 mcg/dL (228-428); Unsaturated Iron Binding 247 ug/dL
[2024-08-29 08:58] LABS: HBS Num1 0.68 mIU/mL (0-7.99); HBc Num1 0.09 S/CO (0.00-0.79); HBsAGNum1 0.31 S/CO (0.00-0.99); HIV AB/AG Nonreactive (Nonreactive); HIV Num 1 0.05 S/CO (0.00-0.99); Hepatitis A Antibody IgM 0.13 Index (0-0.79); Hepatitis B Core Antibody Nonreactive (Nonreactive); Hepatitis B Surface Antigen Negative (Negative); ~HepC Num1 0.25 S/CO (0.00-0.79); ~Hepatitis A Antibody IgM Nonreactive (Nonreactive); ~Hepatitis B Surface Antibody NONREACTIVE (Nonreactive); ~Hepatitis C Antibody Nonreactive (Nonreactive)
[2024-08-29 11:53] LABS: Alpha Fetoprotein 3.1 ng/mL
[2024-08-30 19:19] LABS: Ceruloplasmin 25 mg/dL (14-48)
[2024-09-01 17:53] LABS: Smooth Muscle Antibody <20 U (<20)
[2024-09-03 19:18] LABS: FIB-ALT 51 U/L (6-29); FIB-Alpha-2-Macroglobulin 345 mg/dL (106-279); FIB-Apolipoprotein A1 182 mg/dL (101-198); FIB-GGT 24 U/L (3-65); FIB-Haptoglobin 64 mg/dL (43-212); FIB-Total Bilirubin 0.5 mg/dL (0.2-1.2); Liver Fibrosis Score 0.53; Liver Fibrosis Stage F2; Nec Inflam Act Grade A1-A2; Nec Inflam Act Score 0.38
== END 2024-08-28 11:18 | disposition home or self-care (01) ==
LOC: HO.WFDLDS 11:17
PROVIDERS: Visit Provider Nurse Practitioner Family
DX: R79.89 Other specified abnormal findings of blood chemistry (principal); R74.8 Abnormal levels of other serum enzymes; D64.9 Anemia, unspecified; K58.9 Irritable bowel syndrome, unspecified; K76.0 Fatty (change of) liver, not elsewhere classified; R74.01 Elevation of levels of liver transaminase levels
CPT/HCPCS: 36415; 80076; 81256; 81596; 82105; 82390; 82728; 83540; 85610; 86015; 86140; 86704; 86706; 86709; 86803; 87340; 87389

== ENCOUNTER 2024-08-29 09:53 | Outpatient (REF) | payer MEDICARE, SELFPAY ==
--- OUTSIDE RECORDS SUMMARY | 2024-08-29 11:27 | XMS_ITS | Encounter Summary ---
Author Organization [facility] Address [address] [place] [address] Care Team Providers Care Credit Control Administrator Name Role Phone Franki Chappell MD Primary Care Provider Encounter Details Date Type Department Care Team (Late st Contact Info) Description 08/06/2024 Telephone Orthopedic Surgery [facility] 250 175 [facility] 250 [place] [address] Jessica Gonzáles Social History Tobacco [...] PM EST Pt returned call to surgery [phone] * Jessica Gonzáles - 08/06/2024 2:32 PM [...] 11:15 AM EDT Consult Orthopedic Surgery - [place] [address] [phone] Maribell Hunter MD [address] [phone] 10/22/2024 1:45 PM EDT Hospital Encounter [facility] Main OR [address] [place] [phone] Maribell Hunter MD [address] [phone] 10/22/2024 1:45 PM EDT - 10/22/2024 3:00 PM EDT Surgery [facility] Main OR [address] [place] [phone] Maribell Hunter MD [address] [phone] RELEASE CARPAL TUNNEL ENDOSCOPIC [[id number] (CPT??)] 11/03/2024 11:15 AM EDT Office Visit Orthopedic Surgery - [place] [address] [phone] Claudette Gauthier PA [address] [phone] Scheduled Procedures Name Priority Associated Diagnoses Date/Ti ca RELEASE CARPAL TUNNEL ENDOSCOPIC Right carpal tunnel syndrome 10/22/2024 1:45 PM EDT documented as of this encounter Visit Diagnoses Not on filedocumented in this encounter Care Teams Credit Control Administrator Relationship Specialty Start Date End Date Franki Chappell MD [address] [place] [phone] PCP - General Family Medicine 05/20/24 documented as of this encounter
--- OUTSIDE RECORDS SUMMARY | 2024-08-29 11:27 | XMS_ITS | Clinical Summary ---
Author Organization 175 [facility] Address 175 [place] [address] Phone Care Team Providers Care Batch Tank Controller Name Role Phone Franki Chappell MD Primary [...] Care Team Description 08/06/2024 Telephone Orthopedic Surgery [facility] 250 175 [facility] 250 [place] [phone] Jessica Gonzáles from Last 3 Months Social [...] 10/14/2024 11:15 AM EDT Consult Orthopedic Surgery [facility] 175 [facility] 140 [place] [phone] Maribell Hunter MD [address] [phone] 10/22/2024 1:45 PM EDT Hospital Encounter [facility] Main OR 271 [place] [phone] Maribell Hunter MD [address] [phone] 10/22/2024 1:45 PM EDT - 10/22/2024 3:00 PM EDT Surgery [facility] Main OR [address] [place] [phone] Maribell Hunter MD [address] [phone] RELEASE CARPAL TUNNEL ENDOSCOPIC [[id number] (CPT??)] 11/03/2024 11:15 AM EDT Office Visit Orthopedic Surgery - [place] [address] [phone] Claudette Gauthier PA [address] [phone] Scheduled Procedures Name Priority Associated [...] this topic Insurance MEDICARE MED[place]ID - [place] [facility] Care Teams Batch Tank Controller Relationship Specialty Start Date End Date Franki Chappell MD 575 [place] [address] PCP - General Family Medicine 05/20/24
[2024-08-29 15:29] LABS: Creatinine Urine 25.27 mg/dL; Microalbumin Urine < 5.0 mg/L
== END 2024-08-29 09:54 | disposition home or self-care (01) ==
LOC: HO.LAB 09:53
PROVIDERS: PCP Family Medicine; Visit Provider Nurse Practitioner Family
DX: Z23 Encounter for immunization (principal); E11.65 Type 2 diabetes mellitus with hyperglycemia; E66.811 Obesity, class 1; Z68.30 Body mass index [BMI] 30.0-30.9, adult; I10 Essential (primary) hypertension
CPT/HCPCS: 82043; 82570; 90471; 90715; 96127; 99212

== ENCOUNTER 2024-08-29 09:53 | Outpatient (AMB) | payer MEDICARE, SELFPAY ==
--- NOTE | 2024-08-29 10:02 | MHC.PC.OV ---
Vital Signs 08/29/24 10:06 08/29/24 10:42 Height 5 ft 2 in Weight 164 lb 4 oz BMI 30.0 BP 144/78 H 122/70 Blood Pressure Location Lt brachial Lt brachial Position Sitting Sitting Respiration 13 Pulse 66 Pulse Source Pulse Oximeter Temp 97.1 F Temp Source Oral Pulse Oximetry (%) 98 Oxygen Delivery Method Room Air Intake Visit Reasons: f/u on diabetes Intake Note: follow up on diabetes Casting And Pasting Supervisor Required: No Allergies sulfacetamide Adverse Reaction (Intermediate, Verified 08/29/24 10:32) Rash clindamycin Adverse Reaction (Mild, Verified 08/29/24 10:32) Diarrhea Medication List - Last Reconciled 08/29/24 by Lucrecia Sanchez, BET TAKER- amlodipine 5 mg PO DAILY bisoprolol-hydrochlorothiazide 2.5-6.25 mg 2 tabs PO DAILY 90 days cholecalciferol (vitamin D3) 50 mcg PO DAILY clotrimazole-betamethasone 1-0.05 % 1 appl topical BID 2 weeks cyclosporine 0.05% (Restasis) 1 drp ophthalmic (eye) Q12H fluticasone propionate 50 mcg/actuation (Flonase Allergy Relief) 1 spray intranasal .nightly 30 days lactobacillus combination no.9 (Adult 50 Plus Probiotic) 4,000 mmu cells PO DAILY lisinopril 20 mg PO DAILY loratadine (Allergy Relief (loratadine)) 10 mg PO DAILY multivitamin (Daily Multi-Vitamin tablet) 1 tab PO DAILY 90 days vibegron (Gemtesa) mg PO DAILY wheat dextrin (Benefiber Sugar Free (dextrin)) 1 tab PO DAILY Tobacco use date assessed: 08/29/24 Dental Screening Dental Screen Date: 08/29/24 Did you have a dental visit in the last 12 months?: Yes Did you have a dental problem in the last 6 months where you did not have access to dental care?: No Was dental information given to patient?: Patient has dentist HPI HPI Comments History of Present Illness Details History of Present Illness - The patient is a 74-year-old female presenting with diabetes management issues. - She has a history of uncontrolled type 2 diabetes mellitus, with the last HbA1c recorded at 7.3% in June. - The patient notes adherence to medications but was initially hesitant to start metformin, which is now reconsidered. - She is wary of glucose levels before impending surgical procedures such as carpal tunnel syndrome. - Visual acuity changes suggest a contribution from uncontrolled diabetes and the known complications from cataracts. - A follow-up is anticipated for previous elevated liver enzymes, seeking further specialist evaluation. - Hypertension is well-managed with existing antihypertensive therapy. Exam Awake alert NAD RRR, + murmur LS CTAB Results - Labs: Hemoglobin A1c of 7.3% was recorded in June. - Urine micro obtained today,pending results Discussion Notes During the visit, I discussed the patient's diabetes management plan, emphasizing the need for metformin initiation despite previous hesitations. The importance of addressing elevated blood glucose levels before her scheduled hand surgery for carpal tunnel syndrome was highlighted, considering potential perioperative complications. The patient was informed about the benefits of metformin in glucose control and its supportive role in liver enzyme management. A necessary urine sample was to be collected to assess renal function, common in diabetics, with arrangements made for sample submission. A follow-up appointment coinciding with her A1c re-evaluation before the surgery was recommended. The patient was reassured regarding blood pressure control with antihypertensive medications. Assessment and Plan 1. Type 2 Diabetes Mellitus, uncontrolled: I have discussed initiating metformin therapy with the patient, starting at a low dose to manage her uncontrolled blood glucose effectively. We agreed to monitor HbA1c levels next, aligning with her upcoming surgery requirements. 2. History of Elevated Liver Enzymes: Continuous observation and monitoring will be conducted while considering any improvements derived from metformin therapy, which may benefit her liver enzyme levels. 3. Hypertension: The patient's blood pressure is well-controlled on current medications, no adjustments necessary at this time. 4. Carpal Tunnel Syndrome: Scheduled surgery is recognized, with a focus on optimizing diabetes management before the procedure to minimize risk. 5. Cataracts: Visual changes are noted, and further specialist evaluation is advised for any evidence of diabetic retinopathy. Patient Instructions - Take the prescribed metformin once daily with your evening meal after 4 PM. - Return for bloodwork to determine HbA1c levels before your scheduled surgery. - Contact the office for any increased symptoms or other concerns. Consent Patient was informed and verbally consented to the use of an ambient scribe for clinic note documentation during this visit. Total time spent caring for the patient today was 40 minutes. This includes time spent before the visit reviewing the chart, time spent during the visit, and time spent after the visit on documentation, reviewing laboratory results, diagnostic imaging, medications, performing a medically necessary evaluation, counseling on diagnoses, care coordination, ordering appropriate tests, ordering appropriate medications, review of tests performed by other providers, reporting test results with the patient, communication with other healthcare providers. [facility] Medical History (Updated 08/29/24 @ 10:41 by Lucrecia Sanchez, [facility]) Allergic rhinitis Diabetes type 2, uncontrolled HTN (hypertension) Transaminitis Surgical History (Updated 08/26/24 @ 10:48 by Haja Chery [facility]) History of hysterectomy History of oral surgery Hx of colonoscopy Family History Father Myocardial infarction Hypertension Mother Hypertension CVD (cardiovascular disease) Stroke TIA (transient ischemic attack) Social History Housing: House Alcohol intake: former Comment: Hasnt drank in 7 year Patient Tobacco Use Status: Former Tobacco user e-Cigarette/Vaping Use: Never Used Second Hand Smoke Exposure: No service: No Current occupational status: retired Current occupational exposures/hazards: No Cognitive needs: No Hearing needs: No Vision needs: No Questionnaire PHQ-9 Over the last 2 weeks, how often have you been bothered by any of the following problems? 09443 - PHQ-9 Billing: Patient declined-do not bill Source: Developed by Drs. Bryan Saldivar, Maddy Hilton, Nioks Brito and colleagues, with an educational harvey from [employer]. Thrive Questionnaire Date Thrive assessed: 08/29/24 I am a: Patient What is your living situation today?: I have a steady place to live Within the past 12 months, did the food you bought not last and you didn't have the money to get more?: Never true Within the past 12 months, did you worry whether your food would run out before you got money to buy more?: Never true Do you have trouble paying for medicines?: No Do you have trouble getting transportation to medical appointments?: No Do you have trouble paying your heating and electricity bill?: No Do you have trouble taking care of your child, family member or friend?: No Do you have trouble with day-to-day activities such as bathing, preparing meals, shopping, managing finances, etc.?: No Are you currently unemployed and looking for a job?: No Are you interested in more education?: No Please select the resources that you would like help with: None Currently or been in a relationship where the following occur: No concerns reported THRIVE Score: 0 SABINO-7 AMB Questionnaire SABINO-7 Date SABINO - 7 assessed: 08/29/24 Feeling nervous, anxious, or on edge: 0 = Not at all Not being able to stop or control worryin = Not at all Worrying too much about different things: 0 = Not at all Trouble relaxin = Not at all Being so restless that it is hard to sit still: 0 = Not at all Becoming easily annoyed or irritable: 0 = Not at all Feeling afraid as if something awful might happen: 0 = Not at all Total SABINO-7 score (0-4 normal; 5-9 mild; 10-14 moderate; 15-21 severe): 0 Source: Developed by Drs. Bryan Saldivar, Maddy Hilton, Nikos Brito and colleagues, with an educational harvey from [employer]. SABINO-7 Assessment Billing SABINO-7 Assessment Tool: SABINO-7 Assessment 30127 Physical exam (Primary Care) Vital Signs: Last Vital Signs Temp 97.1 F 08/29/24 10:06 Pulse 66 08/29/24 10:06 Resp 13 08/29/24 10:06 BP 144/78 H 08/29/24 10:06 Pulse Ox 98 08/29/24 10:06 Oxygen Delivery Method Room Air 08/29/24 10:06 BMI result Body Mass Index 30.0 BMI Assessment/Plan discussion: High BMI High, discussed plan: lifestyle Tobacco/Smoking Status: Tobacco use Status Tobacco use date assessed 08/29/24 08/29/24 10:03 Patient Tobacco Use Status Former Tobacco user 08/29/24 10:02 e-Cigarette/Vaping Use Never Used 08/29/24 10:02 Thrive Assessment: Date of Thrive Assessment Date Thrive assessed 08/29/24 08/29/24 10:02 Currently or been in a relationship where the following occur: No concerns reported Immunizations Boostrix Tdap 2.5 Lf unit-8 mcg-5 Lf/0.5 mL intramuscular syringe Performing Provider: Lucrecia Sanchez, [facility] Performing Location: [facility] Family Medicine Administered by: Alyssa Suero RN on 08/29/24 10:27 Dose Route Admin Location Dispensed Lot Number Expiration Date ND Dry Cleaning Machine Operator 0.5 mL IM Left Deltoid 0.5 mL [id number] 10/11/26 83291-106-57 [employer] VIS Given Date VIS Provided VIS Publication Date 08/29/24 Single Vaccine 21 Eligibility Eligibility Date Funding Source Not [facility] Eligible 08/29/24 Private Coding Level of Care Code Est Pt Level 5 (10684) Complex EM visit Add On G2211 Diagnoses Uncontrolled type 2 diabetes mellitus with hyperglycemia E11.65 Need for Tdap vaccination Z23 BMI 30.0-30.9,adult Z68.30 Obesity, Class I, BMI 30.0-34.9 (see actual BMI) E66.811 Essential hypertension I10 Additional Codes SABINO-7 Assessment Billing - SABINO-7 Assessment Tool: SABINO-7 Assessment 49844 ([id number]) Assessment & Plan Assessment & Plan (1) Uncontrolled type 2 diabetes mellitus with hyperglycemia: Code(s): E11.65 - Type 2 diabetes mellitus with hyperglycemia Category: Medical (2) Need for Tdap vaccination: Code(s): Z23 - Encounter for immunization Category: Medical (3) BMI 30.0-30.9,adult: Code(s): Z68.30 - Body mass index [BMI] 30.0-30.9, adult Category: Medical (4) Obesity, Class I, BMI 30.0-34.9 (see actual BMI): Code(s): E66.811 - Obesity, class 1 Category: Medical (5) Essential hypertension: Code(s): I10 - Essential (primary) hypertension Category: Medical Plan . Orders: Orders Microalbumin, Random (w Creat) Today E11.65 - Type 2 diabetes mellitus with hyperglycemia TDaP Immunization Today Z23 - Encounter for immunization Hemoglobin A1c 1 Month E11.65 - Type 2 diabetes mellitus with hyperglycemia Medications: New metformin ER 500 mg PO QPM 90 tabs 1RF
[2024-08-29 10:06] VITALS: BP 144/78; PULSE 66; RESP 13; TEMP 36.2; O2SAT 98
[2024-08-29 10:42] VITALS: BP 122/70
--- OUTSIDE RECORDS SUMMARY | 2024-08-29 10:57 | XMS_ITS | Clinical Summary ---
Author Organization 175 [facility] Address 175 [place] [address] Phone Care Team Providers Care Gin Pole Operator Name Role Phone Franki Chappell MD Primary [...] Care Team Description 08/06/2024 Telephone Orthopedic Surgery [facility] 250 175 [facility] 250 [place] [phone] Jessica Gonzáles from Last 3 Months Social [...] 10/14/2024 11:15 AM EDT Consult Orthopedic Surgery [facility] 175 [facility] 140 [place] [phone] Maribell Hunter MD [address] [phone] 10/22/2024 1:45 PM EDT Hospital Encounter [facility] Main OR 271 [place] [phone] Maribell Hunter MD [address] [phone] 10/22/2024 1:45 PM EDT - 10/22/2024 3:00 PM EDT Surgery [facility] Main OR [address] [place] [phone] Maribell Hunter MD [address] [phone] RELEASE CARPAL TUNNEL ENDOSCOPIC [[id number] (CPT??)] 11/03/2024 11:15 AM EDT Office Visit Orthopedic Surgery - [place] [address] [phone] Claudette Gauthier PA [address] [phone] Scheduled Procedures Name Priority Associated [...] this topic Insurance MEDICARE MEDICAID - [place] [facility] Care Teams Gin Pole Operator Relationship Specialty Start Date End Date Franki Chappell MD 575 [place] [address] PCP - General Family Medicine 05/20/24
--- OUTSIDE RECORDS SUMMARY | 2024-08-29 10:57 | XMS_ITS | Encounter Summary ---
Author Organization [facility] Address [address] [place] [address] Care Team Providers Care Line Locator Name Role Phone Franki Chappell MD Primary Care Provider Encounter Details Date Type Department Care Team (Late st Contact Info) Description 08/06/2024 Telephone Orthopedic Surgery [facility] 250 175 [facility] 250 [place] [address] Jessica Gonzáles Social History Tobacco [...] PM EST Pt returned call to surgery [phone] * Jessica Gonzáles - 08/06/2024 2:32 PM [...] 11:15 AM EDT Consult Orthopedic Surgery - [place] [address] [phone] Maribell Hunter MD [address] [phone] 10/22/2024 1:45 PM EDT Hospital Encounter [facility] Main OR [address] [place] [phone] Maribell Hunter MD [address] [phone] 10/22/2024 1:45 PM EDT - 10/22/2024 3:00 PM EDT Surgery [facility] Main OR [address] [place] [phone] Maribell Hunter MD [address] [phone] RELEASE CARPAL TUNNEL ENDOSCOPIC [[id number] (CPT??)] 11/03/2024 11:15 AM EDT Office Visit Orthopedic Surgery - [place] [address] [phone] Claudette Gauthier PA [address] [phone] Scheduled Procedures Name Priority Associated Diagnoses Date/Ti tx RELEASE CARPAL TUNNEL ENDOSCOPIC Right carpal tunnel syndrome 10/22/2024 1:45 PM EDT documented as of this encounter Visit Diagnoses Not on filedocumented in this encounter Care Teams Line Locator Relationship Specialty Start Date End Date Franki Chappell MD [address] [place] [phone] PCP - General Family Medicine 05/20/24 documented as of this encounter
== END 2024-08-29 10:56 | disposition home or self-care (01) ==
PROVIDERS: PCP Family Medicine; Visit Provider Nurse Practitioner Family
DX: E11.65 Type 2 diabetes mellitus with hyperglycemia (principal); Z23 Encounter for immunization; Z68.30 Body mass index [BMI] 30.0-30.9, adult; E66.811 Obesity, class 1; I10 Essential (primary) hypertension

== ENCOUNTER 2024-10-03 12:53 | Outpatient (AMB) | payer MEDICARE, SELFPAY ==
--- NOTE | 2024-10-03 12:56 | A.OFFPC_ITS ---
Vital Signs 10/03/24 13:01 Height 5 ft 2 in Weight 165 lb 4 oz BMI 30.2 BP 142/78 H Blood Pressure Location Lt brachial Position Sitting Respiration 13 Pulse 62 Pulse Source Pulse Oximeter Temp 97.6 F Temp Source Oral Pulse Oximetry (%) 97 Oxygen Delivery Method Room Air Intake Visit Reasons: 1 mo fu A1c after metformin start Intake Note: follow up on med review Cork Sorter Required: No Allergies sulfacetamide Adverse Reaction (Intermediate, Verified 10/03/24 13:20) Rash clindamycin Adverse Reaction (Mild, Verified 10/03/24 13:20) Diarrhea Medication List - Last Reconciled 10/03/24 by Lucrecia Sanchez, SAFETY GROOVING MACHINE OPERATOR- amlodipine 5 mg PO DAILY bisoprolol-hydrochlorothiazide 2.5-6.25 mg 2 tabs PO DAILY 90 days cholecalciferol (vitamin D3) 50 mcg PO DAILY clotrimazole-betamethasone 1-0.05 % 1 appl topical BID 2 weeks cyclosporine 0.05% (Restasis) 1 drp ophthalmic (eye) Q12H fluticasone propionate 50 mcg/actuation (Flonase Allergy Relief) 1 spray intranasal .nightly 30 days lactobacillus combination no.9 (Adult 50 Plus Probiotic) 4,000 mmu cells PO DAILY lisinopril 20 mg PO DAILY loratadine (Allergy Relief (loratadine)) 10 mg PO DAILY metformin ER 500 mg PO QPM multivitamin (Daily Multi-Vitamin tablet) 1 tab PO DAILY 90 days vibegron (Gemtesa) mg PO DAILY wheat dextrin (Benefiber Sugar Free (dextrin)) 1 tab PO DAILY Tobacco use date assessed: 10/03/24 Fall risk assessment: No Falls in past year Last assessed Fall Risk: 10/03/24 Dental Screening Dental Screen Date: 10/03/24 Did you have a dental visit in the last 12 months?: Yes Did you have a dental problem in the last 6 months where you did not have access to dental care?: No Was dental information given to patient?: Patient has dentist HPI HPI Comments History of Present Illness Details 74 y/o F with HTN and DM2 Started Metformin er 500mg; not having any GI side effects Did have 2 days where she felt weak, like she was going to pass out after starting; was taking 2 hour after dinner. This has not happened since Great improvement in her a1c, now 6.5% New c/o callous on toe of left foot; wearing a callous pad. Would like to see Podiatry Her hand surgery with DR Hunter was moved to October 22, 2024 Will also be having US and Stress test done. Has a healthy appetite. HTN well controlled on current meds. Exam Awake alert NAD RRR, + murmur LS CTAB Plan: Advised to skip Metformin the day before and day of surgery/US/Stress test Refer to [facility]; DM foot care. FU with care team, cont all meds PCP fu as scheduled Total time spent caring for the patient today was 30 minutes. This includes time spent before the visit reviewing the chart, time spent during the visit, and time spent after the visit on documentation, reviewing laboratory results, diagnostic imaging, medications, performing a medically necessary evaluation, counseling on diagnoses, care coordination, ordering appropriate tests, ordering appropriate medications, review of tests performed by other providers, reporting test results with the patient, communication with other healthcare providers. [facility] Medical History (Updated 10/03/24 @ 13:32 by Lucrecia Sanchez, [facility]) Allergic rhinitis Diabetes type 2, uncontrolled HTN (hypertension) Transaminitis Surgical History (Updated 08/26/24 @ 10:48 by Haja Chery CCM) History of hysterectomy History of oral surgery Hx of colonoscopy Family History Father Myocardial infarction Hypertension Mother Hypertension CVD (cardiovascular disease) Stroke TIA (transient ischemic attack) Social History Housing: House Alcohol intake: former Comment: Hasnt drank in 7 year Patient Tobacco Use Status: Former Tobacco user e-Cigarette/Vaping Use: Never Used Second Hand Smoke Exposure: No service: No Current occupational status: retired Current occupational exposures/hazards: No Cognitive needs: No Hearing needs: No Vision needs: No Questionnaire Thrive Questionnaire Date Thrive assessed: 08/11/24 I am a: Patient What is your living situation today?: I have a steady place to live Within the past 12 months, did the food you bought not last and you didn't have the money to get more?: Never true Within the past 12 months, did you worry whether your food would run out before you got money to buy more?: Never true Do you have trouble paying for medicines?: No Do you have trouble getting transportation to medical appointments?: No Do you have trouble paying your heating and electricity bill?: No Do you have trouble taking care of your child, family member or friend?: No Do you have trouble with day-to-day activities such as bathing, preparing meals, shopping, managing finances, etc.?: No Are you currently unemployed and looking for a job?: No Are you interested in more education?: No Please select the resources that you would like help with: None Currently or been in a relationship where the following occur: No concerns reported THRIVE Score: 0 SABINO-7 AMB Questionnaire SABINO-7 Date SABINO - 7 assessed: 08/29/24 Source: Developed by Drs. Bryan Saldivar, Maddy Hilton, Nikos Brito and colleagues, with an educational harvey from [employer]. Physical exam (Primary Care) Vital Signs: Last Vital Signs Temp 97.6 F 10/03/24 13:01 Pulse 62 10/03/24 13:01 Resp 13 10/03/24 13:01 BP 142/78 H 10/03/24 13:01 Pulse Ox 97 10/03/24 13:01 Oxygen Delivery Method Room Air 10/03/24 13:01 BMI result Body Mass Index 30.2 Tobacco/Smoking Status: Tobacco use Status Tobacco use date assessed 10/03/24 10/03/24 12:58 Patient Tobacco Use Status Former Tobacco user 10/03/24 12:58 e-Cigarette/Vaping Use Never Used 10/03/24 12:58 Thrive Assessment: Date of Thrive Assessment Date Thrive assessed 08/11/24 10/03/24 12:58 Currently or been in a relationship where the following occur: No concerns reported Results AMB Hemoglobin A1c AMB Hemoglobin A1c 6.5 % Last Edit by Janine Chaves MA on 10/03/24 13:35 Results Reviewed Results Reviewed: Laboratory Last Values Hgb A1c (Clinic) 6.5 % (4.0-6.0) H 10/03/24 13:17 Coding Level of Care Code Est Pt Level 4 (70512) Complex EM visit Add On G2211 Diagnoses Controlled type 2 diabetes mellitus with other specified complication, without long-term current use of insulin E11.69 Diabetes mellitus complication status: with other specified complication Diabetes mellitus assisted insulin use: without termite helper use Callus L84 Essential hypertension I10 Assessment & Plan Assessment & Plan (1) Diabetes type 2, controlled: Code(s): E11.9 - Type 2 diabetes mellitus without complications Category: Medical Qualifiers: Diabetes mellitus complication status: with other specified complication Diabetes mellitus assisted insulin use: without assisted use Qualified Code(s): E11.69 - Type 2 diabetes mellitus with other specified complication (2) Callus: Code(s): L84 - Corns and callosities Category: Medical (3) Essential hypertension: Code(s): I10 - Essential (primary) hypertension Category: Medical Plan , Orders: Orders AMB Hemoglobin A1c Today Z13.9 - Encounter for screening, unspecified Referrals Podiatry Referral E11.69 - Type 2 diabetes mellitus with other specified complication, L84 - Corns and callosities Patient Instructions: Plan: Advised to skip Metformin the day before and day of surgery/US/Stress test
[2024-10-03 13:01] VITALS: BP 142/78; PULSE 62; RESP 13; TEMP 36.4; O2SAT 97; BMI 30.2
--- OUTSIDE RECORDS SUMMARY | 2024-10-03 13:25 | XMS_ITS | Clinical Summary ---
Author Organization 175 [facility] Address [address] [place] [address] Phone Care Team Providers Care Alpaca Farmer Name Role Phone Franki Chappell MD Primary Care Provider Allergies Active Allergy Reactions Criticality Noted Date Comments Clindamycin 02/13/2024 Sulfa (Sulfonamide Antibiotics) 01/24 Medications lisinopriL (PRINIVIL,ZEST RIL) 20 mg tablet Take 1 tablet (20 mg total) by mouth 1 (one) time each day. Active amLODIPine (NORVASC) 2.5 mg tablet Take 1 tablet (2.5 mg total) by mouth 1 (one) time each day. Active cycloSPORINE (RESTASIS) 0.05 % ophthalmic emulsion apply to the eye. Active fluticasone propionate (FLONASE) 50 mcg/actuation nasal spray 2 Sprays by Each Nare route daily. Active multivitamin (MULTIPLE VITAMINS ORAL) Take by mouth. Active bisoprolol-hyd roCHLOROthiazi de (ZIAC) 2.5-6.25 mg per tablet Take 2 tablets by mouth 1 (one) time each day. 04/24/20 24 Active metFORMIN (FORTAMET) 500 mg 24 hr tablet Take 1 tablet (500 mg total) by mouth 1 (one) time each day with dinner. Do not crush, chew, or split. Active Gemtesa 75 mg tablet tablet Take 1 tablet (75 mg total) by mouth 1 (one) time each day. Active HYDROCHLOROTHI AZIDE ORAL Take 5-12.5 mg by mouth. 025 Discontinued fluticasone furoate (Arnuity Ellipta) 100 mcg/actuation blister with device inhaler Inhale into the lungs. 025 Discontinued fesoterodine 4 mg tablet extended release 24 hr Take by mouth. 025 Discontinued naproxen sodium (ANAPROX) 110 MG tablet Take by mouth. 025 Discontinued ALPRAZolam (XANAX) 0.5 mg tablet TAKE 1 TABLET BY MOUTH IF NEEDED 30 MINUTES BEFORE PROCEDURE 05/07/20 025 Discontinued Pulmicort Flexhaler 90 mcg/actuation inhaler Inhale 1 puff by mouth every 12 (twelve) hours. 07/09/19 025 Discontinued clotrimazole-b etamethasone (LOTRISONE) 1-0.05 % cream APPLY TOPICALLY TO THE AFFECTED AREA TWICE DAILY FOR 2 WEEKS 03/24/20 025 Discontinued ibuprofen (ADVIL,MOTRIN) 600 mg tablet Take 1 tablet (600 mg total) by mouth every 6 (six) hours if needed. for pain 08/30/19 025 Discontinued Myrbetriq 25 mg 24 hr tablet Take 1 tablet (25 mg total) by mouth 1 (one) time each day. 03/20/20 025 Discontinued nitrofurantoin , macrocrystal-m onohydrate, (MACROBID) 100 mg capsule TAKE 1 CAPSULE BY MOUTH EVERY 12 HOURS FOR 3 DAYS WITH FOOD/MEAL 04/15/20 025 Discontinued trospium (SANCTURA) 20 mg tablet Take 1 tablet (20 mg total) by mouth 2 (two) times a day. 01/01/20 025 Discontinued Active Problems Problem Noted Date Diagnosed Date Bilateral carpal tunnel syndrome 05/20/2024 Right carpal tunnel syndrome 05/20/2024 Encounters Date Type Department Care Team Description 08/06/2024 Telephone Orthopedic Surgery - [place] [address] [phone] Jessica Gonzáles from Last 3 Months Surgical History Surgery Date Site/Laterality Comments HYSTERECTOMY CHOLECYSTECTOMY Medical History Medical History Date Comments Hyperlipidemia Hypertension Diabetes mellitus (CMS/HCC V24, CMS/HCC V28) Anxiety Liver disease Irritable bowel syndrome Social History Tobacco Use Types Packs/Day Years Used Date Smoking Tobacco: Never Assessed Comments Unknown Sex and Gender Information Value Date Recorded Sex Assigned at Not on file Legal Sex Female 11:40 AM EDT Gender Identity Not on file Sexual Orientation Not on file Obstetrics History Last Filed Vital Signs Vital Sign Reading Time Taken Comments Blood Pressure - - Pulse - - Temperature - - Respiratory Rate - - Oxygen Saturation - - Inhaled Oxygen Concentration - - Weight 74.4 kg (164 lb) 10/02/2024 3:00 PM EDT Height 157.5 cm (5' 2 ) 10/02/2024 3:00 PM EDT Body Mass Index 30 10/02/2024 3:00 PM EDT Plan of Treatment Upcoming Encounters Date Type Department Care Team (Latest Contact Info) Description 10/14/2024 11:15 AM EDT Consult Orthopedic Surgery [facility] [address] [phone] Maribell Hunter MD [address] [phone] 10/22/2024 1:45 PM EDT Hospital Encounter [facility] Main OR [address] [place] [phone] Maribell Hunter MD [address] [phone] 10/22/2024 1:45 PM EDT - 10/22/2024 3:[address] [facility] [place] [address] [place] [phone] Maribell Hunter MD [address] [phone] RELEASE CARPAL TUNNEL ENDOSCOPIC [[id number] (CPT??)] 11/04/2024 11:00 AM EDT Office Visit Orthopedic Surgery [facility] [address] [phone] Claudette Gauthier PA [address] [phone] Scheduled Procedures Name Priority Associated Diagnoses Date/Ti [...] Vaccine: 50+ Years Completed 03/17/2024 RSV Immunization Adult Patients Completed 03/31/2024 Influenza Vaccine Completed 04/14/2024, , [...] age to complete this topic Meningococcal B Vaccine Aged Out No l onger eligible based on patient's age to complete this topic RSV Immunization Patients Under 20 months Aged Out No longer eligible based on patient's age to complete this topic Varicella Vaccines Aged Out No longer eligible based on patient's age to complete this topic Insurance MEDICARE MEDICA[place] - [place] [facility] Care Teams Alpaca Farmer Relationship Specialty Start Date End Date Franki Chappell MD [address] [place] [address] PCP - General Family Medicine 05/20/24
== END 2024-10-03 13:38 | disposition home or self-care (01) ==
LOC: HO.HMCFM 12:53
PROVIDERS: PCP Family Medicine; Visit Provider Nurse Practitioner Family
DX: E11.69 Type 2 diabetes mellitus with other specified complication (principal); L84 Corns and callosities; I10 Essential (primary) hypertension; Z13.9 Encounter for screening, unspecified

== ENCOUNTER → 2024-10-03 12:53 | Outpatient (BNVA) | payer MEDICARE, SELFPAY | PROVIDERS: PCP Family Medicine; Visit Provider Nurse Practitioner Family | DX: E11.69 Type 2 diabetes mellitus with other specified complication (principal); L84 Corns and callosities; I10 Essential (primary) hypertension | CPT/HCPCS: 83036; 99212 ==

== ENCOUNTER 2024-11-27 08:39 | Outpatient (REF) | payer MEDICARE, SELFPAY ==
--- NOTE | ~2024-11-27 | US_ITS ---
EXAMINATION: US ABDOMEN COMPLETE WITH LIVER ELASTOGRAPHY HISTORY: R79.89 - Other specified abnormal findings of blood chemistry TECHNIQUE: Real-time grayscale ultrasound imaging of the abdomen was performed and images were reviewed. COMPARISON: There are no prior studies available for comparison. FINDINGS: Liver: The right lobe of the liver measures 13.4 cm in size. The left lobe of the liver measures 12.6 cm in size. The liver demonstrates increased echotexture, consistent with steatosis. No focal mass or intrahepatic biliary ductal dilatation is identified. There is normal hepatopedal flow in the portal vein. Ultrasound elastography of the liver was performed with 10 separate measurements of the liver parenchyma with the patient in the supine position. Measurements were obtained approximately 2 cm below Carlos's capsule and perpendicular to the capsule. Images are of satisfactory quality. The median shear wave velocity is 1.04 m/s (previously 1.52 m/s). The interquartile range/median (IQR/median) is 0.14. Gallbladder and biliary tree: The gallbladder is surgically absent. The common bile duct is measures 10 mm in diameter. Kidneys: The right kidney measures 10.0 cm in length. The left kidney measures 8.2 cm in length. The kidneys are unremarkable, without evidence of masses, hydronephrosis, or calculi. Pancreas: The pancreatic head, neck, and body are unremarkable. The pancreatic tail is obscured by bowel gas. Spleen: The spleen is normal in size and contour, measuring 9.6 cm in length. Abdominal aorta and inferior vena cava: The visualized portions of the abdominal aorta and inferior vena cava are normal in caliber. There is no free fluid in the abdomen. US/US abdomen comp w elastography IMPRESSION: Hepatic steatosis and enlargement of the left lobe. The median shear wave velocity in the liver is 1.04 m/s, corresponding to a median liver stiffness of 3.3 kPa. The IQR/median value is 0.14. This is indicative of a quality data set. Findings are indicative of a normal elastography value with a low likelihood of severe fibrosis or cirrhosis. REFERENCE: Society of Radiologists in Ultrasound Liver Stiffness Thresholds (2020): LIVER STIFFNESS THRESHOLDS: *Shear wave velocity less than 1.3 m/s (Liver Stiffness equal or less than 5 kPa): High probability of being normal. *Shear wave velocity less than 1.7 m/s (Liver Stiffness less than 9 kPa): In the absence of other known clinical signs, rules out compensated advanced chronic liver disease. *Shear wave velocity between 1.7-2.1 m/s (Liver Stiffness 9-13 kPa): Suggestive of compensated advanced chronic liver disease but need further test for confirmation. *Shear wave velocity between 2.1-2.4 m/s (Liver Stiffness 13-17 kPa): Rules in compensated advanced chronic liver disease. *Shear wave velocity greater than 2.4 m/s (Liver Stiffness over 17 kPa): Suggestive of clinically significant portal hypertension. QUALITY OF DATA SET: *IQR/Median value equal or less than 0.30 implies a quality data set. *IQR/Median value over 0.30 implies a poor quality data set. SIGNIFICANT CHANGE FROM PRIOR EXAM: Significant change if liver stiffness measurement is 10% or greater from prior exam. OTHER CONSIDERATIONS: The stage of liver fibrosis may be overestimated in the setting of acute hepatitis, liver inflammation, elevated liver function tests, hepatic vascular congestion, obstructive cholestasis, non-fasting state, and infiltrative diseases such as amyloidosis and lymphoma. In some patients with NAFLD, the liver stiffness thresholds for compensated advanced chronic liver disease may be lower. In causes other than viral hepatitis and NAFLD, liver stiffness thresholds are not well established. Electronically signed by: Bryan Ron MD 11/27/2024 01:57 PM EDT
--- OUTSIDE RECORDS SUMMARY | 2024-11-27 09:04 | XMS_ITS | Clinical Summary ---
Author Organization 175 [facility] Address [address] [place] [address] Phone Care Team Providers Care Heel Nailing Machine Operator Name Role Phone Franki Chappell MD Primary Care Provider [phone] Allergies Active Allergy Reactions Criticality Noted Date Comments Clindamycin Rash 02/13/2024 Sulfa (Sulfonamide Antibiotics) Rash 01/24 Medications lisinopriL (PRINIVIL,ZESTR IL) 20 mg tablet Take 1 tablet (20 mg total) by mouth 1 (one) time each day. Active amLODIPine (NORVASC) 2.5 mg tablet Take 1 tablet (2.5 mg total) by mouth 1 (one) time each day. Active cycloSPORINE (RESTASIS) 0.05 % ophthalmic emulsion Administer 1 drop into both eyes 2 (two) times a day. Active fluticasone propionate (FLONASE) 50 mcg/actuation nasal spray 2 Sprays by Each Nare route daily. Active multivitamin (MULTIPLE VITAMINS ORAL) 1 (one) time each day. Active bisoprolol-hydr oCHLOROthiazide (ZIAC) 2.5-6.25 mg per tablet Take 2 tablets by mouth 1 (one) time each day. Active metFORMIN (FORTAMET) 500 mg 24 hr tablet Take 1 tablet (500 mg total) by mouth 1 (one) time each day with dinner. Do not crush, chew, or split. Active Gemtesa 75 mg tablet tablet Take 1 tablet (75 mg total) by mouth 1 (one) time each day. Active acetaminophen (TYLENOL) 500 mg tablet Take 1 tablet (500 mg total) by mouth every 6 (six) hours if needed for moderate pain. Do not exceed 3 grams of Tylenol per day. 30 tablet 5 Active oxyCODONE (ROXICODONE) 5 mg immediate release tablet Take 1 tablet (5 mg total) by mouth every 6 (six) hours if needed for severe pain. Max Daily Amount: 20 mg 5 each 5 Active Active Problems Problem Noted Date Diagnosed Date Carpal tunnel syndrome on left 11/12/2024 Bilateral carpal tunnel syndrome 05/20/2024 Right carpal tunnel syndrome 05/20/2024 Encounters Date Type Department Care Team Description 11/04/2024 11:00 AM EDT Office Visit Orthopedic Surgery [facility] [address] [phone] Claudette Gauthier PA S/P carpal tunnel release (Primary Dx) 10/22/2024 1:30 PM EDT - 10/22/2024 2:45 PM EDT Surgery [facility] OR [address] [place] [phone] Maribell Hunter MD ENDOSCOPIC RELEASE RIGHT CARPAL TUNNEL [[id number] (CPT??)] 10/22/2024 1:09 PM EDT Anesthesia Event [facility] OR [address] [place] [phone] Bharath Wynn MD 10/22/2024 11:45 AM EDT - 10/22/2024 2:50 PM EDT Hospital Encounter [facility] OR [address] [place] [phone] Maribell Hunter MD Discharge Disposition: Home or Self Care 10/14/2024 11:15 AM EDT Consult Orthopedic Surgery [facility] [address] [phone] Maribell Hunter MD Right carpal tunnel syndrome (Primary Dx) from Last 3 Months Surgical History Surgery Date Site/Laterality Comments HYSTERECTOMY 06/25/2022 - 06/24/2023 CHOLECYSTECTOMY CARPAL TUNNEL RELEASE 10/22/2024 Right Right endoscopic carpal tunnel release Medical History Medical History Date Comments Hyperlipidemia Hypertension Diabetes mellitus (CMS/HCC V24, CMS/HCC V28) Anxiety Liver disease Irritable bowel syndrome Shortness of breath Chest pain Social History Tobacco Use Types Packs/Day Years Used Date Smoking Tobacco: Former Cigarettes Tobacco Cessation:Counseling Given: Not Answered Alcohol Use Standard Drinks/Week Comments Not Currently 0 (1 standard drink = 0.6 oz pur e alcohol) Interpersonal Safety Answer Date Record ed Physical Abuse 10/22/2024 Verbal Abuse 10/22/2024 Comments No Sex and Gender Information Value Date Recorded Sex Assigned at Female 10/20/2024 1:19 PM EDT Legal Sex Female 11:40 AM EDT Gender Identity Female 10/22/2024 11:55 AM EDT Sexual Orientation Straight 10/22/2024 11 :55 AM EDT Obstetrics History Last Filed Vital Signs Vital Sign Reading Time Taken Comments Blood Pressure 130/60 10/22/2024 2:21 PM EDT Pulse 65 10/22/2024 2:21 PM EDT Temperature 36.3 ??C (97.3 ??F) 10/22/2024 1:54 PM ED T Respiratory Rate 16 10/22/2024 1:54 PM EDT Oxygen Saturation 95% 10/22/2024 2:21 PM EDT Inhaled Oxygen Concentration - - Weight 74.8 kg (165 lb) 11/04/2024 10:57 AM EDT Height 157.5 cm (5' 2.01 ) 11/04/2024 10:57 AM E DT Body Mass Index 30.17 11/04/2024 10:57 AM EDT Plan of Treatment Scheduled Procedures Name Priority Associated Diagnoses Date/Ti me RELEASE CARPAL TUNNEL ENDOSCOPIC Carpal tunnel syndrome on left Health Maintenance Due Date Last Done Comments Diabetes: Annual Foot Exam 1960 Diabetes: Annual Retina Eye Exam 1960 Diabetes: Annual GFR (Glomerular Filtration Rate) 11/24/2020 11/25/2019 Cholesterol Screening (Lipid Panel) 04/08/2024 Depression Screening 04/08/2024 Hepatitis C Screening 04/08/2024 Medicare Annual Wellness Visit 04/08/2024 Osteoporosis Screening (Bone Density Screening) 04/08/2024 Social Influencers of Health Screening 04/08/2024 Diabetes: Annual Urine Albumin-Creatinine Ratio (uACR) 05/20/2024 11/26/2019 Diabetes: Blood Sugar Control Test (HGBA1C) 05/20/2024 Hypertension/CHF/CAD Annual BMP Blood Test 05/20/2024 11/25/2019 COVID-19 Vaccine ( season) 2024 03/03/2024, 06/01/2023, 04/26/2022, Additional history exists Falls Risk Assessment 10/22/2025 10/22/2024 DTaP,Tdap,and Td Vaccines (2 - Td or Tdap) 08/29/2034 08/29/2024 Zoster Vaccines Completed 12/17/2023, 10/14/2023 Pneumococcal Vaccine: 50+ Years Completed 03/17/2024 RSV [...] on patient's age to complete this topic Procedures Procedure Name Priority Date/Time Associated Diagnosis Comments NM ENDOSCOPY WRIST SURGICAL WITH RELEASE TRANSVERSE CARPAL LIGAMENT 10/22/2024 1:08 PM EDT Right carpal tunnel syndrome Case Notes MICROAIRE Special Needs Right endoscopic carpal tunnel release, on the stretcher, vadim Airregino set up POCT GLUCOSE BLOOD Routine 10/22/2024 12 :07 PM EDT PROCEDURAL ECG Routine 10/22/2024 12:03 PM EDT from Last 3 Months Results * (ABNORMAL) POCT Glucose, blood (10/22/2024 12:07 PM EDT) Glucose POCT 144(H) 70 - 100 mg/dL 10/22/2024 12:08 PM EDT [facility] Blood Capillary blood specimen / Unknown 10/22/2024 12:07 PM EDT 10/22/2024 12:09 PM EDT Maribell Hunter MD LAB POINT OF CARE TE ST DOCKED DEVICE UNSOLICITED RESULTS Final Result [facility] [address] [place] [address], * ECG 12 lead - Procedural (No Charge) (10/22/2024 12:03 PM EDT) Ventricular Rate ECG 66 BPM GEMUSE Atrial Rate 66 BPM GEMUSE P-R Interval 152 ms GEMUSE QRS Duration 82 ms GEMUSE Q-T Interval 400 ms GEMUSE QTc 419 ms GEMUSE P [place] 47 degrees GEMUSE R [place]te 10 degrees GEMUSE ECG Interpretation Normal sinus rhythm Nonspecific ST abnormality Abnormal ECG No previous ECGs available Confirmed by Aminah HUERTA JAMES ([id number]) on 10/22/2024 4:48:43 PM GEMUSE 10/22/2024 12:0 3 PM EDT 10/22/2024 4:48 PM EDT Bharath Wynn MD ECG ORDERABLES Final Result GEMUSE from Last 3 Months Insurance MEDICARE [place] - [place] [facility] Advance Directives * Full Code - Default (Latest Code Status on File) Date Activated Date Inactivated Comments 10/22/2024 11:55 AM 10/22/2024 4:51 PM This is ord er is used when code status has not been discussed with the patient, or code status is otherwise unknown/unconfirmed To update the patient's code status, place a code status order. Do not modify or discontinue any currently active code status orders. Care Teams Heel Nailing Machine Operator Relationship Specialty Start Date End Date Franki Chappell MD [address] [place] [phone] PCP - General Family Medicine 05/20/24
== END 2024-11-27 08:40 | disposition home or self-care (01) ==
LOC: HO.US 08:39
PROVIDERS: PCP Family Medicine; Visit Provider Nurse Practitioner Family
DX: R79.89 Other specified abnormal findings of blood chemistry (principal)
CPT/HCPCS: 76700; 76981

== ENCOUNTER → 2024-11-27 08:41 | Outpatient (BNV) | payer MEDICARE, SELFPAY | PROVIDERS: PCP Family Medicine; Visit Provider Radiology Diagnostic Radiology | DX: K76.0 Fatty (change of) liver, not elsewhere classified (principal); R16.0 Hepatomegaly, not elsewhere classified | CPT/HCPCS: 76700 ==

== ENCOUNTER 2024-12-15 10:31 | Outpatient (REF) | payer MEDICARE, SELFPAY ==
--- NOTE | ~2024-12-15 | MM_ITS ---
EXAMINATION: MM SCREENING DIGITAL BREAST TOMOSYNTHESIS, BILATERAL CLINICAL INFORMATION: Screening. Asymptomatic. COMPARISON: Mammography: Comparison is made with available priors TECHNIQUE: Digital breast mammography with tomosynthesis is performed in both the craniocaudal and mediolateral oblique views along with computer-aided detection (CAD). FINDINGS: There are scattered areas of fibroglandular density (ACR BI-RADS breast composition Category b). There are no significant masses, abnormal calcifications, or other abnormalities. MM/MM tomosynthesis screening BI IMPRESSION: No mammographic evidence of malignancy. ASSESSMENT: BI-RADS BI-RADS 1 - Negative RECOMMENDATION: Routine annual mammography screening. 1 year F/U This examination should not preclude the clinical evaluation of a suspicious palpable abnormality. This patient's information was entered into a reminder system with a target due date for their next mammogram. Electronically signed by: Elizabeth Rod DO 12/19/2024 01:06 PM EDT
--- OUTSIDE RECORDS SUMMARY | 2024-12-15 11:47 | XMS_ITS | Clinical Summary ---
Author Organization 175 [facility] Address [address] [place] [address] Phone Care Team Providers Care Gypsum Calciner Name Role Phone Franki Chappell MD Primary Care Provider [phone] Allergies Active Allergy Reactions Criticality Noted Date [...] Encounters Date Type Department Care Team Description 11/27/2024 Telephone Orthopedic Surgery [facility] [address] [facility] [address] [place] [phone] Jessica Carlson MA Surgery 11/04/2024 11:00 AM EDT Office Visit Orthopedic Surgery [facility] 175 [facility] [address] [place] [phone] Claudette Gauthier PA S/P carpal tunnel release (Primary Dx) 10/22/2024 1:30 PM EDT - 10/22/2024 2:[address] [facility] [place] [address] [place] [phone] Maribell Hunter MD ENDOSCOPIC RELEASE RIGHT CARPAL TUNNEL [22056 (CPT )] 10/22/2024 1:09 PM EDT Anesthesia Event [facility] OR [address] [place] [phone] Bharath Wynn MD 10/22/2024 11:45 AM EDT - 10/22/2024 2:50 PM EDT Hospital Encounter [facility] OR [address] [place] [address] [phone] Maribell Hunter MD Discharge Disposition: Home or Self Care 10/14/2024 11:15 AM EDT Consult Orthopedic Surgery [facility] 175 [facility] [address] [place] [phone] Maribell Hunter MD Right carpal tunnel syndrome [...] 65 10/22/2024 2:21 PM EDT Temperature 36.3 C (97.3 F) 10/22/2024 1:54 PM EDT Respiratory Rate 16 10/22/2024 1:54 PM EDT Oxygen Saturation 95% 10/22/2024 2:21 PM EDT Inhaled Oxygen Concentration - - Weight 74.8 kg (165 lb) 11/04/2024 10:57 AM EDT Height 157.5 cm (5' 2.01 ) 11/04/2024 10:57 AM E DT Body Mass Index 30.17 11/04/2024 10:57 AM EDT Plan of Treatment Health Maintenance Due Date Last Done Comments [...] Procedure Name Priority Date/Time Associated Diagnosis Comments RI ENDOSCOPY WRIST SURGICAL WITH RELEASE TRANSVERSE CARPAL LIGAMENT 10/22/2024 1:08 PM EDT Right carpal tunnel syndrome Case Notes MICROAIRE Special Needs Right endoscopic carpal tunnel release, on the stretcher, micro Aire set up POCT GLUCOSE BLOOD Routine 10/22/2024 12 :07 PM EDT PROCEDURAL ECG Routine 10/22/2024 12:03 PM EDT from Last 3 Months Results * (ABNORMAL) POCT Glucose, blood (10/22/2024 12:07 PM EDT) Glucose POCT 144(H) 70 - 100 mg/dL 10/22/2024 12:08 PM EDT [facility] Blood Capillary blood specimen / Unknown 10/22/2024 12:07 PM EDT 10/22/2024 12:09 PM EDT Maribell Hunter MD LAB POINT OF CARE TE ST DOCKED DEVICE UNSOLICITED RESULTS Final Result [facility] [address] [place] [address], [place] [phone] * ECG 12 lead - Procedural (No Charge) (10/22/2024 12:03 PM EDT) Ventricular Rate ECG 66 BPM GEMUSE Atrial Rate 66 BPM GEMUSE P-R Interval 152 ms GEMUSE QRS Duration 82 ms GEMUSE Q-T Interval 400 ms GEMUSE QTc 419 ms GEMUSE P Wave [place] 47 degrees GEMUSE R [place] 10 degrees GEMUSE ECG Interpretation Normal sinus rhythm Nonspecific ST abnormality Abnormal ECG No previous ECGs available Confirmed by Aminah HUERTA JAMES ([id number]) on 10/22/2024 4:48:43 PM GEMUSE 10/22/2024 12:0 3 PM EDT 10/22/2024 4:48 PM EDT Bharath Wynn MD ECG ORDERABLES Final Result GEMUSE from Last 3 Months Insurance MEDICARE [place] - [place] [facility] Advance Directives * Full Code - Default [...] currently active code status orders. Care Teams Gypsum Calciner Relationship Specialty Start Date End Date Franki Chappell MD [address] [place] [phone] PCP - General Family Medicine 05/20/24
== END 2024-12-15 10:32 | disposition home or self-care (01) ==
LOC: HO.MAMMO 10:31
PROVIDERS: PCP Family Medicine; Visit Provider Family Medicine
DX: Z12.31 Encounter for screening mammogram for malignant neoplasm of breast (principal)
CPT/HCPCS: 77063; 77067

== ENCOUNTER → 2024-12-15 11:00 | Outpatient (BNV) | payer MEDICARE, SELFPAY | PROVIDERS: PCP Family Medicine; Visit Provider Internal Medicine | DX: Z12.31 Encounter for screening mammogram for malignant neoplasm of breast (principal) | CPT/HCPCS: 77063; 77067 ==

== ENCOUNTER 2024-12-17 09:39 | Outpatient (REF) | payer MEDICARE, SELFPAY ==
--- NOTE | ~2024-12-17 | XR_ITS ---
EXAMINATION: XR WRIST 3 OR MORE VIEWS LEFT HISTORY: M25.531 - Pain in right wrist COMPARISON: There are no prior studies available for comparison. FINDINGS: Three views of the right wrist are submitted. Osseous mineralization is normal. There is no fracture or dislocation. The joint spaces are preserved. The soft tissues are unremarkable. XR/XR wrist LT min 3V IMPRESSION: Unremarkable examination of the right wrist. Electronically signed by: Bryan Ron MD 12/17/2024 11:09 AM EDT
== END 2024-12-17 09:40 | disposition home or self-care (01) ==
LOC: HO.XRAY 09:39
PROVIDERS: PCP Family Medicine; Visit Provider Nurse Practitioner Family
DX: R74.01 Elevation of levels of liver transaminase levels (principal); R74.8 Abnormal levels of other serum enzymes; K58.9 Irritable bowel syndrome, unspecified
CPT/HCPCS: 73110; 99212

== ENCOUNTER 2024-12-17 09:39 | Outpatient (AMB) | payer MEDICARE, SELFPAY ==
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
[2024-12-17 09:58] VITALS: BP 146/68; PULSE 68; O2SAT 97; BMI 30.2
--- OUTSIDE RECORDS SUMMARY | 2024-12-17 10:52 | XMS_ITS | Clinical Summary ---
Author Organization 175 [facility] Address [address] [place] [address] Phone Care Team Providers Care Stitching Machine Setter Name Role Phone Franki Chappell MD Primary Care Provider [phone]- [phone] Allergies Active Allergy Reactions Criticality Noted Date [...] Care Team Description 11/27/2024 Telephone Orthopedic Surgery [facility] [address] [facility] [address] [place] [phone] Jessica Carlson MA Surgery 11/04/2024 11:00 AM EDT Office Visit Orthopedic Surgery [facility] 175 [facility] [address] [place] [phone] Claudette Gauthier PA S/P carpal tunnel release (Primary Dx) 10/22/2024 1:30 PM EDT - 10/22/2024 2:45 PM EDT Surgery [facility] OR [address] [place] [phone] Maribell Hunter MD ENDOSCOPIC RELEASE RIGHT CARPAL TUNNEL [43087 (CPT )] 10/22/2024 1:09 PM EDT Anesthesia Event [facility] OR [address] [place] [address] [phone] Bharath Wynn MD 10/22/2024 11:45 AM EDT - 10/22/2024 2:50 PM EDT Hospital Encounter [facility] OR [address] [place] [address] [phone] Maribell Hunter MD Discharge Disposition: Home or Self Care 10/14/2024 11:15 AM EDT Consult Orthopedic Surgery [facility] 175 [facility] [address] [place] [phone] Maribell Hunter MD Right carpal tunnel syndrome [...] Procedure Name Priority Date/Time Associated Diagnosis Comments MS ENDOSCOPY WRIST SURGICAL WITH RELEASE TRANSVERSE CARPAL [...] - 100 mg/dL 10/22/2024 12:08 PM EDT [facility] Blood Capillary blood specimen / Unknown 10/22/2024 12:07 PM EDT 10/22/2024 12:09 PM EDT Maribell Hunter MD LAB POINT OF CARE TE ST DOCKED DEVICE UNSOLICITED RESULTS Final Result [facility] [address] [place] [address], [place] [phone] * ECG 12 lead - Procedural (No Charge) (10/22/2024 12:03 PM EDT) Ventricular Rate ECG 66 BPM GEMUSE Atrial Rate 66 BPM GEMUSE P-R Interval 152 ms GEMUSE QRS Duration 82 ms GEMUSE Q-T Interval 400 ms GEMUSE QTc 419 ms GEMUSE P Wave May 47 degrees GEMUSE R May 10 degrees GEMUSE ECG Interpretation Normal sinus rhythm Nonspecific ST abnormality Abnormal ECG No previous ECGs available Confirmed by Aminah HUERTA JAMES ([id number]) on 10/22/2024 4:48:43 PM GEMUSE 10/22/2024 12:0 3 PM EDT 10/22/2024 4:48 PM EDT Bharath Wynn MD ECG ORDERABLES Final Result GEMUSE from Last 3 Months Insurance MEDICARE [place] - [place] [facility] Advance Directives * Full Code - Default [...] currently active code status orders. Care Teams Stitching Machine Setter Relationship Specialty Start Date End Date Franki Chappell MD [address] [place] [phone] PCP - General Family Medicine 05/20/24
== END 2024-12-17 10:27 | disposition home or self-care (01) ==
LOC: HO.HGI 09:40
PROVIDERS: PCP Family Medicine; Visit Provider Nurse Practitioner Family
DX: R74.01 Elevation of levels of liver transaminase levels (principal); R74.8 Abnormal levels of other serum enzymes; K58.9 Irritable bowel syndrome, unspecified
CPT/HCPCS: 99213

== ENCOUNTER → 2024-12-17 10:43 | Outpatient (BNV) | payer MEDICARE, SELFPAY | PROVIDERS: PCP Family Medicine; Visit Provider Radiology Diagnostic Radiology | DX: M25.531 Pain in right wrist (principal) | CPT/HCPCS: 73110 ==

== ENCOUNTER 2025-01-12 10:17 | Outpatient (AMB) | payer MEDICARE, SELFPAY ==
--- OUTSIDE RECORDS SUMMARY | 2023-04-20 13:40 | XMS_ITS | Encounter Summary ---
Author Organization [facility] Address [address] [place] [phone] Phone Care Team Providers Care Finishing Area Supervisor Name Role Phone Roxana Lopez MD Unavailable Franki Chappell MD Primary Care Provide r Encounter Details Date Type Department Care Team (Late st Contact Info) Description 04/20/2023 1:40 PM EDT Hospital Encounter [facility] [address] [place] [phone] Sourav Begum, ELECTRICAL INSTALLATION SUPERVISOR [address] [place] [address] [email or web address] Social History Tobacco Use Types Packs/Day Years Used Date Smoking Tobacco: Former Cigarettes Q uit: 02/2017 Smokeless Tobacco: Never Alcohol Use Standard Drinks/Week Comments No 0 (1 standard drink = 0.6 oz pur e alcohol) Education Answer Date Recorded Are you interested in more education? Not on fidel e 10/20/2022 Are you concerned about learning? Not on file 10/20/2022 No 10/20/2022 No 10/20/2022 Digital Access Answer Date Recorded No 11/20/2022 No 11/20/2022 Reliable internet access at home? Not on file 11/20/2022 Device with a working camera? Not on file Comments No Sex and Gender Information Value Date Recorded Sex Assigned at Not on file Legal Sex Female 10:05 PM EDT Gender Identity Not on file Sexual Orientation Not on file Occupation Industry Job Start Date Job End Date Working Not on file Not on file Not on file documented as of this encounter Plan of Treatment Not on file documented as of this encounter Procedures Procedure Name Priority Date/Time Associated Diagnosis Comments XR CHEST PA AND LATERAL 2 VIEWS Urgent/patient waiting 04/20/2023 1:48 PM EDT Acute bronchitis, unspecified organism documented in this encounter Results * XR CHEST PA AND LATERAL 2 VIEWS (04/20/2023 1:48 PM EDT) Anatomical Region Laterality Modality Chest Computed Radiogr aphy 04/20/2023 1:49 PM EDT Impressions 04/20/2023 1:50 PM EDT No acute findings. Narrative 04/20/2023 1:50 PM EDT XR CHEST PA AND LATERAL 2 VIEWS COMPARISON: None FINDINGS: Lungs: Clear lungs. Pleura: No pleural effusion. No pneumothorax Heart/Mediastinum: Heart size normal. Atherosclerotic calcifications in aorta. Bones/Soft Tissues: No acute finding Procedure Note Aaron Warner MD, JYOTI - 04/20/2023 XR CHEST PA AND LATERAL 2 VIEWS COMPARISON: None FINDINGS: Lungs: Clear lungs. Pleura: No pleural effusion. No pneumothorax Heart/Mediastinum: Heart size normal. Atherosclerotic calcifications inaorta. Bones/Soft Tissues: No acute finding IMPRESSION: No acute findings. Sherigeeta Adamsjanes Begum [facility] IM XR CHEST Final Result documented in this encounter Visit Diagnoses Not on filedocumented in this encounter Care Teams Finishing Area Supervisor Relationship Specialty Start Date End Date Franki Chappell MD [address] [place] [phone] PCP - General 08/05/21 Roxana Lopez MD [address] [place] [address], [address] [place] [address] [email or web address] Historical LMR Provider 04/11/17 documented as of this encounter Additional Source Comments The information contained in this document represents components of the legal health record. It is not the complete legal health record.[facility]
--- NOTE | 2025-01-12 10:48 | A.OFFPC_ITS ---
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 Allergies sulfacetamide Adverse Reaction (Intermediate, Verified 01/12/25 10:49) Rash clindamycin Adverse Reaction (Mild, Verified 01/12/25 10:49) Diarrhea Medication List - Last Reconciled 01/12/25 by Franki Chappell MD amlodipine 5 mg PO DAILY bisoprolol-hydrochlorothiazide 2.5-6.25 mg 2 tabs PO DAILY 90 days blood sugar diagnostic (FreeStyle Lite Strips) DX: E11.9, test blood sugar once a day, 90 days blood-glucose meter (FreeStyle Lite Meter kit) DX: E11.9, test blood sugar once a day, duration 999 days cholecalciferol (vitamin D3) 50 mcg PO DAILY clotrimazole-betamethasone 1-0.05 % 1 appl topical BID 2 weeks cyclosporine 0.05% (Restasis) 1 drp ophthalmic (eye) Q12H fluticasone propionate 50 mcg/actuation (Flonase Allergy Relief) 1 spray intranasal .nightly 30 days lactobacillus combination no.9 (Adult 50 Plus Probiotic) 4,000 mmu cells PO DAILY lancets (FreeStyle Lancets) As directed, 90 days lisinopril 20 mg PO DAILY loratadine (Allergy Relief (loratadine)) 10 mg PO DAILY metformin ER 500 mg PO QPM multivitamin (Daily Multi-Vitamin tablet) 1 tab PO DAILY 90 days roflumilast 0.3% (Zoryve) appl topical BID PRN vibegron (Gemtesa) mg PO DAILY wheat dextrin (Benefiber Sugar Free (dextrin)) 1 tab PO DAILY Tobacco use date assessed: 01/12/25 Fall risk assessment: No Falls in past year Last assessed Fall Risk: 01/12/25 Dental Screening Dental Screen Date: 01/12/25 Did you have a dental visit in the last 12 months?: Yes Did you have a dental problem in the last 6 months where you did not have access to dental care?: No Was dental information given to patient?: Patient has dentist HPI f/u stress test HPI Details 74 y/o female presents to f/u chronic co nditions. Had been having complaints of L sided neck/chest pain earlier this year. Liver elastography 11/27/24 showed hepatic steatosis and enlargement of L lobe. Mammogram 12/15/24 and was fine. BP today 138/74, 72p. She is on lisinopril 20mg, amlodipine 5mg, bisprolol-HCTZ 2.5-6.25mg daily. A1c today 6.5%. Pt notes she is now on metformin 500mg. Ongoing complaints of hand pain. Stress test scheduled first week of January. [facility] Medical History (Updated 01/12/25 @ 11:32 by Manuel Flores) Transaminitis Allergic rhinitis Diabetes type 2, uncontrolled HTN (hypertension) Surgical History (Updated 12/17/24 @ 09:56 by SEJAL Cabrera) Carpal tunnel syndrome of right wrist Hx of colonoscopy History of hysterectomy History of oral surgery Family History Father Myocardial infarction Hypertension Mother Hypertension CVD (cardiovascular disease) Stroke TIA (transient ischemic attack) Social History Housing: House Alcohol intake: former Comment: Hasnt drank in 7 year Patient Tobacco Use Status: Former Tobacco user e-Cigarette/Vaping Use: Never Used Second Hand Smoke Exposure: No service: No Current occupational status: retired Current occupational exposures/hazards: No Cognitive needs: No Hearing needs: No Vision needs: No Questionnaire PHQ-9 Over the last 2 weeks, how often have you been bothered by any of the following problems? 1. Little interest or pleasure in doing things: not at all 2. Feeling down, depressed, or hopeless: not at all 3. Trouble falling or staying asleep, or sleeping too much: not at all 4. Feeling tired or having little energy: not at all 5. Poor appetite or overeating: not at all 6. Feeling bad about yourself - or that you are a failure or have let yourself or your family down: not at all 7. Trouble concentrating on things, such as reading the newspaper or watching television: not at all 8. Moving or speaking so slowly that other people could have noticed. Or the opposite - being so fidgety or restless that you have been moving around a lot more than usual: not at all 9. Thoughts that you would be better off or of hurting yourself in some way: not at all Total score: 0 Depression Screening Interpretation: Negative Depression Screening Done: Yes 75264 - PHQ-9 Billing: Yes Source: Developed by Drs. Bryan Saldivar, Maddy Hilton, Nikos Brito and colleagues, with an educational harvey from [id number]. Thrive Questionnaire Date Thrive assessed: 01/12/25 I am a: Patient What is your living situation today?: I have a steady place to live Within the past 12 months, did the food you bought not last and you didn't have the money to get more?: Never true Within the past 12 months, did you worry whether your food would run out before you got money to buy more?: Never true Do you have trouble paying for medicines?: No Do you have trouble getting transportation to medical appointments?: No Do you have trouble paying your heating and electricity bill?: No Do you have trouble taking care of your child, family member or friend?: No Do you have trouble with day-to-day activities such as bathing, preparing meals, shopping, managing finances, etc.?: No Are you currently unemployed and looking for a job?: No Are you interested in more education?: No Please select the resources that you would like help with: None Currently or been in a relationship where the following occur: No concerns repo rted THRIVE Score: 0 SABINO-7 AMB Questionnaire SABINO-7 Date SABINO - 7 assessed: 01/12/25 Feeling nervous, anxious, or on edge: 0 = Not at all Not being able to stop or control worryin = Not at all Worrying too much about different things: 0 = Not at all Trouble relaxin = Not at all Being so restless that it is hard to sit still: 0 = Not at all Becoming easily annoyed or irritable: 0 = Not at all Feeling afraid as if something awful might happen: 0 = Not at all Total SABINO-7 score (0-4 normal; 5-9 mild; 10-14 moderate; 15-21 severe): 0 Source: Developed by Drs. Bryan Saldivar, Maddy Hilton, Nikos Brito and colleagues, with an educational harvey from [id number]. SABINO-7 Assessment Billing SABINO-7 Assessment Tool: SABINO-7 Assessment 10099 Review of Systems Const Denies chills, Denies fatigue, Denies fever(s), Denies headache(s) and Denies weakness ENT Denies dizziness and Denies headache(s) Card Denies chest pain, Denies lightheadedness, Denies dyspnea and Denies other (Palpitations) Resp Denies cough, Denies dyspnea, Denies wheezing and Denies other ( shortness of breath) Musc Denies numbness and Denies tingling Neuro Denies dizziness, Denies headache(s), Denies numbness, Denies tingling, Denies paresthesias and Denies weakness Psych Denies anxiety and Denies depression Endo Denies fatigue Aller/Immun Denies wheezing Physical exam (Primary Care) Vital Signs: Last Vital Signs Temp 97.2 F 01/12/25 10:53 Pulse 72 01/12/25 10:53 Resp 13 01/12/25 10:53 BP 138/74 01/12/25 10:53 Pulse Ox 99 01/12/25 10:53 Oxygen Delivery Method Room Air 01/12/25 10:53 BMI result Body Mass Index 30.1 Tobacco/Smoking Status: Tobacco use Status Tobacco use date assessed 01/12/25 01/12/25 10:51 Patient Tobacco Use Status Former Tobacco user 01/12/25 10:48 e-Cigarette/Vaping Use Never Used 01/12/25 10:48 PHQ-9: PHQ-9 Score PHQ-9: Total score 0 01/12/25 11:16 Depression Screening Interpretation: Negative Thrive Assessment: Date of Thrive Assessment Date Thrive assessed 01/12/25 01/12/25 10:51 Currently or been in a relationship where the following occur: No concerns reported Const General: no acute distress and well developed Nutritional Appearance: well nourished Orientation/consciousness: patient oriented x3 HENMT Head: Yes normocephalic and Yes atraumatic Eyes General: appearance normal, both eyes and all related structures Pupils: Equal, round and reactive pupils present EOM: EOMs intact bilaterally Resp Effort & Inspection: normal respiratory effort Auscultation: clear to auscultation bilaterally Cardio Rate: regular rate Rhythm: regular rhythm Heart sounds: S1 normal heart sound present, S2 normal heart sound present, no gallops, no murmurs and no rubs Neuro General: patient oriented x3 and gait normal Cranial nerves: Yes Equal, round and reactive pupils present Psych Affect: normal affect Results AMB Hemoglobin A1c AMB Hemoglobin A1c 6.5 % Last Edit by Janine Chaves MA on 01/12/25 11:08 Results Reviewed Results Reviewed: Laboratory Last Values Hgb A1c (Clinic) 6.5 % (4.0-6.0) H 01/12/25 10:58 Coding Level of Care Code Est Pt Level 4 (11976) Diagnoses Essential hypertension I10 Diabetes type 2, controlled E11.9 Other chest pain R07.89 Chest pain type: other chest pain Coronary artery disease involving [place] coronary artery of [place] heart without angina pectoris I25.10 Associated angina: without angina Coronary Disease-Associated Artery/Lesion type: [place] artery [place] vs. transplanted heart: [place]bins heart Hepatic steatosis K76.0 Immunization counseling Z71.85 Hand pain M79.643 Additional Codes SABINO-7 Assessment Billing - SABINO-7 Assessment Tool: SABINO-7 Assessment 93519 ([id number]) PHQ-9 - 35894 - PHQ-9 Billing: Yes ([id number]) Assessment & Plan Assessment & Plan (1) Essential hypertension: Code(s): I10 - Essential (primary) hypertension Category: Medical Plan: Blood pressure is fairly well controlled. Her goal is less than 130/80 however she has been noting some lightheadedness which may be secondary to beta-concha. Continue current medications Watch salt/sodium Hydrate well (2) Diabetes type 2, controlled: Code(s): E11.9 - Type 2 diabetes mellitus without complications Category: Medical Plan: A1c 6.5%. Good control. Goal is less than 7.0% Continue metformin as prescribed (3) Chest pain: Code(s): R07.9 - Chest pain, unspecified Category: Medical Qualifiers: Chest pain type: other chest pain Qualified Code(s): R07.89 - Other chest pain Plan: Patient has upcoming stress test Will follow-up with her on results (4) CAD (coronary artery disease): Comment: cta 05/2024 Mild atherosclerotic calcified plaque is seen in the region of left brachiocephalic and right subclavian arteries Code(s): I25.10 - Atherosclerotic heart disease of [place] coronary artery without angina pectoris Category: Medical Qualifiers: Associated angina: without angina Coronary Disease-Associated Artery/Lesion type: [place] artery [place] vs. transplanted heart: [place] heart Qualified Code(s): I25.10 - Atherosclerotic heart disease of [place] coronary artery without angina pectoris Plan: As above, upcoming stress test (5) Hepatic steatosis: Code(s): K76.0 - Fatty (change of) liver, not elsewhere classified Category: Medical Plan: Ultrasound showed hepatic steatosis but elastography was within range Continue good hydration Follow-up Gastroenterology as recommended (6) Immunization counseling: Code(s): Z71.85 - Encounter for immunization safety counseling Category: Medical Plan: We discussed flu, pneumonia, RSV, shingles and COVID shots. (7) Hand pain: Code(s): M79.643 - Pain in unspecified hand Category: Medical Plan: Bilateral base of thumb pain, right worse than left Advised she contact her hand surgeon, Dr. Hunter Orders: Orders AMB Hemoglobin A1c Today E11.65 - Type 2 diabetes mellitus with hyperglycemia, E11.69 - Type 2 diabetes mellitus with other specified complication, E11.9 - Type 2 diabetes mellitus without complications, Z13.9 - Encounter for screening, unspecified Medications: Changed From metformin ER 500 mg PO QPM 90 tabs 1RF To metformin ER 500 mg PO QPM 90 tabs 3RF 90 days
[2025-01-12 10:53] VITALS: BP 138/74; PULSE 72; RESP 13; TEMP 36.2; O2SAT 99; BMI 30.1
--- OUTSIDE RECORDS SUMMARY | 2025-01-12 11:16 | XMS_ITS | Clinical Summary ---
Author Organization [facility] Address [address] [place] [address] Phone Care Team Providers Care Cook Larder Name Role Phone Franki Chappell MD Primary Care Provider [phone]- [phone] Allergies Active Allergy Reactions Criticality Noted Date [...] Orthopedic Surgery [facility] [address] [facility] [address] [place] [phone] Jessica Carlson MA Surgery 11/04/2024 11:00 AM EDT Office Visit Orthopedic Surgery [facility] [address] [facility] [address] [place] [phone] Claudette Gauthier PA S/P carpal tunnel release (Primary Dx) 10/22/2024 1:30 PM EDT - 10/22/2024 2:45 PM EDT Surgery [facility] OR [address] [place] [phone] Maribell Hunter MD ENDOSCOPIC RELEASE RIGHT CARPAL TUNNEL [[id number] (CPT )] 10/22/2024 1:09 PM EDT Anesthesia Event [facility] [place] [address] [place] [phone] Bharath Wynn MD 10/22/2024 11:45 AM EDT - 10/22/2024 2:50 PM EDT Hospital Encounter [facility] [place] [address] [place] [phone] Maribell Hunter MD Discharge Disposition: Home or Self Care 10/14/2024 11:15 AM EDT Consult Orthopedic Surgery [facility] [address] [facility] [address] [place] [phone] Maribell Hunter MD Right carpal tunnel syndrome [...] 11/24/2020 11/25/2019 Cholesterol Screening (Lipid Panel) 04/08/2024 Hepatitis C Screening 04/08/2024 Medicare Annual Wellness Visit 04/08/2024 Osteoporosis Screening (Bone Density Screening) 04/08/2024 Social Influencers of Health Screening 04/08/2024 Diabetes: Annual Urine Albumin-Creatinine Ratio (uACR) 05/20/2024 11/26/2019 Diabetes: Blood Sugar Control Test (HGBA1C) 05/20/2024 Hypertension/CHF/CAD Annual BMP Blood Test 05/20/2024 11/25/2019 Depression Screening 06/25/2024 COVID-19 Vaccine ( season) 2024 03/03/2024, 06/01/2023, 04/26/2022, Additional history exists Influenza Vaccine (#1) 2025 , 05/25/2023, 04/04/2022, Additional history exists Falls Risk Assessment 10/22/2025 10/22/2024 DTaP,Tdap,and Td Vaccines (2 - Td or Tdap) 08/29/2034 08/29/2024 Zoster Vaccines Completed 12/17/2023, 10/14/2023 Pneumococcal Vaccine: 50+ Years Completed 03/17/2024 RSV Immunization Adult Patients Completed 03/31/2024 HIB Vaccines Aged Out No longer eligi [...] Procedure Name Priority Date/Time Associated Diagnosis Comments ND ENDOSCOPY WRIST SURGICAL WITH RELEASE TRANSVERSE CARPAL [...] - 100 mg/dL 10/22/2024 12:08 PM EDT [facility] Blood Capillary blood specimen / Unknown 10/22/2024 12:07 PM EDT 10/22/2024 12:09 PM EDT Maribell Hunter MD LAB POINT OF CARE TE ST DOCKED DEVICE UNSOLICITED RESULTS Final Result Performing Organization Address City/[facility]/ZIP Co de Phone Number [facility] [address] [place] [address], [place] [phone] * ECG 12 lead - Procedural (No Charge) (10/22/2024 12:03 PM EDT) Ventricular Rate ECG 66 BPM GEMUSE Atrial Rate 66 BPM GEMUSE P-R Interval 152 ms GEMUSE QRS Duration 82 ms GEMUSE Q-T Interval 400 ms GEMUSE QTc 419 ms GEMUSE P Wave [place] 47 degrees GEMUSE R [place] 10 degrees GEMUSE ECG Interpretation Normal sinus rhythm Nonspecific ST abnormality Abnormal ECG No previous ECGs available Confirmed by Aminah HUERTA JAMES ([id number]) on 10/22/2024 4:48:43 PM GEMUSE 10/22/2024 12:0 3 PM EDT 10/22/2024 4:48 PM EDT Bharath Wynn MD ECG ORDERABLES Final Result GEMUSE from Last 3 Months Insurance MEDICARE MEDICAID - [place] [facility] Advance Directives * Full Code - [...] currently active code status orders. Care Teams Cook Larder Relationship Specialty Start Date End Date Franki Chappell MD [address] [place] [address] PCP - General Family Medicine 05/20/24
== END 2025-01-12 11:36 | disposition home or self-care (01) ==
LOC: HO.HMCFM 10:18
PROVIDERS: PCP Family Medicine; Visit Provider Family Medicine
DX: I10 Essential (primary) hypertension (principal); E11.9 Type 2 diabetes mellitus without complications; R07.89 Other chest pain; I25.10 Atherosclerotic heart disease of native coronary artery without angina pectoris; K76.0 Fatty (change of) liver, not elsewhere classified; Z71.85 Encounter for immunization safety counseling; M79.643 Pain in unspecified hand; E11.69 Type 2 diabetes mellitus with other specified complication; E11.65 Type 2 diabetes mellitus with hyperglycemia; Z13.9 Encounter for screening, unspecified

== ENCOUNTER → 2025-01-12 10:17 | Outpatient (BNVA) | payer MEDICARE, SELFPAY | PROVIDERS: PCP Family Medicine; Visit Provider Family Medicine | DX: I10 Essential (primary) hypertension (principal); E11.9 Type 2 diabetes mellitus without complications; R07.89 Other chest pain; I25.10 Atherosclerotic heart disease of native coronary artery without angina pectoris; K76.0 Fatty (change of) liver, not elsewhere classified; Z71.85 Encounter for immunization safety counseling; M79.641 Pain in right hand; M79.642 Pain in left hand | CPT/HCPCS: 83036; 96127; 99212 ==

== ENCOUNTER → 2025-01-28 09:53 | Outpatient (REF) | payer MEDICARE, SELFPAY ==
--- OUTSIDE RECORDS SUMMARY | 2023-04-20 13:40 | XMS_ITS | Encounter Summary ---
Author Organization [facility] Address [address] [place] [phone] Phone Care Team Providers Care Management Advisor Name Role Phone Roxana Lopez MD Unavailable Franki Chappell MD Primary Care Provide r Encounter Details Date Type Department Care Team (Late st Contact Info) Description 04/20/2023 1:40 PM EDT Hospital Encounter [facility] [address] [place] [phone] Sourav Begum, PIERCER OPERATOR [address] [place] [address] [email or web address] Social History Tobacco Use Types Packs/Day Years [...] IMPRESSION: No acute findings. Sherigeeta Adamsjanes Begum [facility] IM XR CHEST Final Result documented in this encounter Visit Diagnoses Not on filedocumented in this encounter Care Teams Management Advisor Relationship Specialty Start Date End Date Franki Chappell MD [address] [place] [phone] PCP - General 08/05/21 Roxana Lopez MD [address] [place] [address], [address] [place] [address] [email or web address] Historical LMR Provider 04/11/17 documented as of this encounter Additional Source Comments The information contained in this document represents components of the legal health record. It is not the complete legal health record.[facility]
--- NOTE | ~2025-01-28 | NM_ITS ---
EXERCISE MYOCARDIAL PERFUSION STUDY INDICATION: Chest pain TECHNIQUE: The patient was brought in for an exercise perfusion study on 01/28/2025. Patient performed exercise as per Nikhil protocol and was injected 25 mCi of sestamibi once target heart rate was achieved. Images were obtained using the SPECT gamma camera interlaced with the gating device. Images were obtained in supine position. Resting perfusion study was performed on 01/29/2025. Patient was administered 25 mCi of sestamibi intravenously at rest. Images were then obtained in supine position. Total DLP 79 mGy-cm. Images were processed with the software and compared side to side in short axis, horizontal long axis and vertical long axis views. FINDINGS: Raw aquisition reviewed. The stress perfusion study showed no significant perfusion abnormality. Both uncorrected as well as CT attenuation corrected images were reviewed. The gated study shows normal LV systolic function with calculated LVEF of 57%. LV cavity is normal in size. The gated study shows normal wall thickening and contraction of segments. Resting study shows no significant perfusion abnormality. Gating at rest reveals normal wall motion with ejection fraction at 65%. The findings are consistent with no clear reversible or fixed perfusion abnormality. NM/NM cardiolite stress test IMPRESSION: 1. Myocardial perfusion imaging study shows normal myocardial perfusion. 2. Gated LVEF is 57% during stress and 65% during rest. 3. Transient ischemic dilatation not present. EKG component of the test reported separately. Electronically signed by: Keanu Alatorre MD 01/30/2025 12:50 PM EDT
--- NOTE | 2025-01-28 09:56 | CA_ITS ---
Acquisition Time: 2025-01-28 10:04:25 Total Exercise Time: 00:05:00 Test Indications: CP Medications: SEE H&P Protocol: PAULINA Max HR: 130 BPM 90% of Pred: 144 BPM Max BP: 184/64 mmHG Max Work Load: 4.6 METS Exercise stress test with exercise 5 mins of Paulina Protocol held at Stage 1, achieving 87% MPHR, with reports of severe SOB, no chest pain, with frequent PACs and PVCs, with atrial and ventricular couplets, with normotensive response to exercise. With borderline EKG changes suggesting possible ischemia, nonspecific abnormality at baseline. In recovery, breathing returned to baseline. Nuclear images pending. Test reviewed with Dr. Alatorre. Referred By: Lucrecia Sanchez Electronically Signed By: Domingo Green
--- OUTSIDE RECORDS SUMMARY | 2025-01-28 10:25 | XMS_ITS | Clinical Summary ---
Author Organization 175 [facility] Address [address] [place] [address] Phone Care Team Providers Care Acetylene Burner Name Role Phone Franki Chappell MD Primary Care Provider [phone]- [phone] Allergies Active Allergy Reactions Criticality Noted Date [...] Orthopedic Surgery [facility] [address] [facility] [address] [place] [phone] Jessica Carlson MA Surgery 11/04/2024 11:00 AM EDT Office Visit Orthopedic Surgery [facility] [address] [facility] [address] [place] [phone] Claudette Gauthier PA S/P carpal tunnel release (Primary Dx) from Last 3 Months Surgical [...] 11/04/2024 10:57 AM EDT Plan of Treatment Upcoming Encounters Date Type Department Care Team (Late st Contact Info) Description 02/10/2025 9:45 AM EDT Office Visit Orthopedic Surgery - [place] [address] [facility] [address] [place] [phone] Maribell Hunter MD 175 [facility] [address] [place] [phone] Health Maintenance Due Date Last Done Comments [...] this topic Insurance MEDICARE [place] - [place] [facility] Advance Directives * Full Code - [...] currently active code status orders. Care Teams Acetylene Burner Relationship Specialty Start Date End Date Franki Chappell MD [address] [place] [phone] PCP - General Family Medicine 05/20/24
== END ==
LOC: HO.CARD 09:53
PROVIDERS: PCP Family Medicine; Visit Provider Nurse Practitioner Family
DX: R07.9 Chest pain, unspecified (principal)
CPT/HCPCS: 78452; 93017; A9500

== ENCOUNTER → 2025-01-28 09:56 | Outpatient (BNV) | payer MEDICARE, SELFPAY | PROVIDERS: PCP Family Medicine | DX: R07.9 Chest pain, unspecified (principal) | CPT/HCPCS: 78452; 93016; 93018 ==

== ENCOUNTER 2025-03-02 10:23 | Outpatient (AMB) | payer MEDICARE, SELFPAY ==
--- OUTSIDE RECORDS SUMMARY | 2023-04-20 13:40 | XMS_ITS | Encounter Summary ---
Author Organization [facility] Address [address] [place] [phone] Phone Care Team Providers Care Concrete Swimming Pool Installer Name Role Phone Roxana Lopez MD Unavailable Franki Chappell MD Primary Care Provide r Encounter Details Date Type Department Care Team (Late st Contact Info) Description 04/20/2023 1:40 PM EDT Hospital Encounter [facility] [address] [place] [phone] Sourav Begum, INDEPENDENT FREIGHT AGENT [address] [place] [address] [email or web address] Social History Tobacco Use Types Packs/Day Years [...] IMPRESSION: No acute findings. Sherigeeta Adamsjanes Begum [facility] IM XR CHEST Final Result documented in this encounter Visit Diagnoses Not on filedocumented in this encounter Care Teams Concrete Swimming Pool Installer Relationship Specialty Start Date End Date Franki Chappell MD [address] [place] [phone] PCP - General 08/05/21 Roxana Lopez MD [address] [place] [address], [address] [place] [address] [email or web address] Historical LMR Provider 04/11/17 documented as of this encounter Additional Source Comments The information contained in this document represents components of the legal health record. It is not the complete legal health record.[facility]
--- NOTE | 2025-03-02 10:27 | MHC.OFFVIS ---
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/Wright Accompanied by: Daughter Allergies sulfacetamide Adverse Reaction (Intermediate, Verified 03/02/25 10:33) Rash clindamycin Adverse Reaction (Mild, Verified 03/02/25 10:33) Diarrhea Medication List - Last Reconciled 03/02/25 by Keanu Alatorre MD amlodipine 5 mg PO DAILY bisoprolol-hydrochlorothiazide 2.5-6.25 mg 2 tabs PO DAILY 90 days blood sugar diagnostic (FreeStyle Lite Strips) DX: E11.9, test blood sugar once a day, 90 days blood-glucose meter (FreeStyle Lite Meter kit) DX: E11.9, test blood sugar once a day, duration 999 days cholecalciferol (vitamin D3) 50 mcg PO DAILY clotrimazole-betamethasone 1-0.05 % 1 appl topical BID 2 weeks cyclosporine 0.05% (Restasis) 1 drp ophthalmic (eye) Q12H fluticasone propionate 50 mcg/actuation (Flonase Allergy Relief) 1 spray intranasal .nightly 30 days lactobacillus combination no.9 (Adult 50 Plus Probiotic) 4,000 mmu cells PO DAILY lancets (FreeStyle Lancets) As directed, 90 days lisinopril 20 mg PO DAILY loratadine (Allergy Relief (loratadine)) 10 mg PO DAILY metformin ER 500 mg PO QPM 90 days multivitamin (Daily Multi-Vitamin tablet) 1 tab PO DAILY 90 days roflumilast 0.3% (Zoryve) appl topical BID PRN vibegron (Gemtesa) mg PO DAILY wheat dextrin (Benefiber Sugar Free (dextrin)) 1 tab PO DAILY HPI Comments Details: Irene has been referred cardiac evaluation. She does not have any known cardiac issues including coronary disease or myocardial infarction or cardiomyopathy. Listed to have diabetes and hypertension on appropriate medications. She states that she is generally quite active and does not have any clear exertional symptoms like exertional angina. She has had a few occasions where she felt like a jolt in the left side of the neck and then goes down to the chest area. It only lasts for a couple of seconds or so and then resolved completely. Nonexertional and can happen randomly. She underwent an exercise stress test where she had experienced severe shortness of breath but no angina. There was concern for EKG changes of ischemia but perfusion was normal. [facility] Medical History (Updated 02/03/25 @ 11:25 by Lucrecia Sanchez [facility]) Transaminitis Allergic rhinitis Diabetes type 2, uncontrolled HTN (hypertension) Surgical History Carpal tunnel syndrome of right wrist Hx of colonoscopy History of hysterectomy History of oral surgery Family History Father Myocardial infarction Hypertension Mother Hypertension CVD (cardiovascular disease) Stroke TIA (transient ischemic attack) Social History Housing: House Alcohol intake: former Comment: Hasnt drank in 7 year Patient Tobacco Use Status: Former Tobacco user e-Cigarette/Vaping Use: Never Used Second Hand Smoke Exposure: No service: No Current occupational status: retired Current occupational exposures/hazards: No Cognitive needs: No Hearing needs: No Vision needs: No Review of Systems Const Denies chills, Denies daytime sleepiness, Denies fatigue, Denies fever(s), Denies poor appetite, Denies snoring, Denies stops breathing during sleep, Denies weight gain and Denies weight loss Eyes Denies loss of vision Card Denies chest pain, Denies claudication, Denies leg edema, Denies lightheadedness, Denies palpitations, Denies dyspnea, Reports dyspnea on exertion and Denies orthopnea Resp Denies cough, Denies excessive phlegm production, Denies pain with cough, Denies dyspnea, Reports dyspnea on exertion, Denies snoring, Denies wheezing and Denies other GI Denies abdominal pain, Denies hematochezia, Denies change in bowel habits, Denies nausea and Denies vomiting Denies urinary frequency and Denies dysuria Musc Denies arthralgias and Denies muscle weakness Skin/Breast Denies nail changes and Denies rash Neuro Denies loss of vision and Denies memory loss Psych Denies depression, Reports difficulty concentrating, Denies auditory hallucinations and Denies memory loss Endo Denies fatigue and Denies palpitations Alvaro/Lymph Denies easy bruising Aller/Immun Denies wheezing Physical Exam Vital Signs: Last Vital Signs Pulse 64 03/02/25 10:28 BP 128/74 03/02/25 10:28 BMI result Body Mass Index 30.0 Const General: comfortable and no acute distress Orientation/consciousness: patient oriented x3 HEENT Other: Unremarkable Head: Yes normal to inspection Neck Neck: Yes normal visual inspection Chest Chest palpation & inspection: normal inspection of the chest Resp Auscultation: clear to auscultation bilaterally Cardio Palpation: normal PMI Heart sounds: S1 normal heart sound present, S2 normal heart sound present, no gallops, no murmurs and no rubs GI Palpation (GI): Soft to palpation Back/Spine/Pelvis Other: unremarkable Skin General skin exam: no rashes or lesions noted Neuro General: patient oriented x3 Extrem General: Yes normal to inspection Psych Mental Status: mental status grossly normal Assessment & Plan Assessment & Plan (1) Chest pain: Code(s): R07.9 - Chest pain, unspecified Category: Medical Qualifiers: Chest pain type: other chest pain Qualified Code(s): R07.89 - Other chest pain (2) Abnormal stress test: Onset Date: ~01/2025 Code(s): R94.39 - Abnormal result of other cardiovascular function study Category: Medical (3) Essential hypertension: Code(s): I10 - Essential (primary) hypertension Category: Medical (4) Diabetes type 2, controlled: Code(s): E11.9 - Type 2 diabetes mellitus without complications Category: Medical Plan In the recent EKG from September, sinus rhythm at 66/Min and nonspecific ST-T changes. In the stress test, she was able to exercise for 4.6 METS on Nikhil protocol and reached target heart rate; had shortness of breath but no chest pain; possible ischemia on EKG but perfusion imaging was normal. Overall, she has risk factors for coronary disease, atypical neck pain symptoms which could be from cervical radiculopathy and non anginal sounding, possible ischemia on EKG during stress test but negative perfusion. Findings discussed with patient. Main advice would be to watch for symptoms of exertional angina and report immediately if any. Otherwise, shortness of breath could could also be from deconditioning and she can slowly increase her activity level as tolerated. Risk factor management of diabetes and hypertension. We will also get an echocardiogram for completion to evaluate LV function and her valves. We discussed about follow-up appointment but she would like to just be called about the results and she will mainly follow up with her PCP. If any ongoing concerns, advised immediately to contact us. Also discussed with daughter who came for appointment. Discussion Notes I discussed with the patient the importance of monitoring her symptoms and the potential causes of her neck pain, including cervical spine related. We agreed on conducting an echocardiogram to further evaluate her heart function. I also emphasized the need for regular follow-ups with her PCP for her diabetes and hypertension, to manage her cardiovascular risk factors. Patient was informed and verbally consented to the use of an ambient scribe for clinic note documentation during this visit. Orders: Orders CA echo transthoracic complete Today R06.02 - Shortness of breath Patient Instructions: - Monitor for any changes in symptoms, especially during physical activity. - Attend scheduled echocardiogram. - Continue regular follow-ups for diabetes, hypertension management. Coding Level of Care Code New Pt Level 4 (64826) Complex EM visit Add On G2211 Diagnoses Other chest pain R07.89 Chest pain type: other chest pain Abnormal stress test R94.39 Essential hypertension I10 Diabetes type 2, controlled E11.9
[2025-03-02 10:28] VITALS: BP 128/74; PULSE 64
--- OUTSIDE RECORDS SUMMARY | 2025-03-02 12:21 | XMS_ITS | Encounter Summary ---
Author Organization [facility] Address [address] [place] [address] Phone Care Team Providers Care Auxiliary Operator Name Role Phone Roxana Lopez MD Unavailable Roxanna Carrington NP Unavailable Adrianne Shah MD Unavailable [phone] Dahlia Espino MD Primary Care Provider Mellissa Dangelo MD, MPH Primary Care Provid er Pcp, Unknown Primary Care Provider Unavailabl e Franki Chappell MD Primary Care Provide r Encounter Details Date Type Department Care Team (Late st Contact Info) Description 05/28/2017 Transcribe Orders [facility] [address] [place] [address] Dahlia Espino MD [address] [place] [address] Drive [address] [place] [address] History of hepatic disease (Primary Dx) Social History Tobacco Use Types Packs/Day Years Used Date Smoking Tobacco: Former Cigarettes Q uit: 02/2017 Smokeless Tobacco: Never Alcohol Use Standard Drinks/Week Comments No 0 (1 standard drink = 0.6 oz pur e alcohol) Comments No Sex and Gender Information Value [...] on file documented as of this encounter Results * (ABNORMAL) Alanine aminotransferase (ALT) (05/28/2017 11:29 AM EST) ALT 59(H) 0 - 40 U/L [facility] Blood 05/28/2017 11:2 9 AM EST 05/28/2017 11:31 AM EST us Dahlia Espino MD LAB BLOOD ORDERABLES Fi nal Result Performing Organization Address [facility] Co de Phone Number [address] [address] * (ABNORMAL) Aspartate aminotransferase (AST) (05/28/2017 11:29 AM EST) AST 40(H) 0 - 37 U/L [facility] Blood 05/28/2017 11:2 9 AM EST 05/28/2017 11:31 AM EST us Dahlia Espino MD LAB BLOOD ORDERABLES Fi nal Result Performing Organization Address [facility] Co de Phone Number [address] [address] * Alkaline phosphatase (05/28/2017 11:29 AM EST) ALKALINE PHOSPHATASE 43 39 - 117 U/L [facility] Blood 05/28/2017 11:2 9 AM EST 05/28/2017 11:31 AM EST us Dahlia Espino MD LAB BLOOD ORDERABLES Fi nal Result Performing Organization Address [facility] Co de Phone Number [address] [address] documented in this encounter Visit Diagnoses Diagnosis History of hepatic disease- Primary Personal history of other diseases of digestive disease documented in this encounter Care Teams Auxiliary Operator Relationship Specialty Start Date End Date Dahlia Espino MD [address] [place] [address] [address] [place] [address] PCP - General Pulmonary Disease 05/28/17 12/17/18 Mellissa Dangelo MD, MPH [address] [place] [address] [email or web address] PCP - General Family Medicine 12/18/18 02/06/21 Pcp, Unknown PCP - General 02/07/21 08/04/21 [place] [address] [place] [address] PCP - General 08/05/21 Roxana Lopez MD [address] [place] [address] [email or web address] Historical LMR Provider 04/11/17 Roxanna Carrington NP [address] [place] [address] Historical LMR Provider 04/11/17 2 Adrianne Shah MD [address] [place] [phone] Historical LMR Provider 04/11/17 2 documented as of this encounter Additional Source Comments The information contained in this document represents components of the legal health record. It is not the complete legal health record.[facility]
--- OUTSIDE RECORDS SUMMARY | 2025-03-02 12:21 | XMS_ITS | Encounter Summary ---
Author Organization [facility] Address [address] [address] Phone Care Team Providers Care Quality Control Engineering Technician Name Role Phone oRxana Lopez MD Unavailable [phone] Roxanna Carrington NP Unavailable Adrianne Shah MD Unavailable [phone] Dahlia Espino MD Primary Care Provider Mellissa Dangelo MD, MPH Primary Care Provid er Pcp, Unknown Primary Care Provider Unavailabl e Franki Chappell MD Primary Care Provide r Encounter Details Date Type Department Care Team (Latest Contact Info) Description 09/10/2018 Transcribe Orders [facility] Laboratory [address] [place] [address] Nereyda Montoya MD [address] [facility] [address] [place] [address] Psoriasis vulgaris (Primary Dx); Encounter for long-term (current) use of other medications Social History Tobacco Use Types Packs/Day Years [...] documented as of this encounter Results * Quantiferon-TB Gold (09/10/2018 3:14 PM EDT) [facility] QuantiFERON-TB Gold Negative Negative [facility] [place] Comment: (NOTE) No interferon-gamma response to M. tuberculosis antigens was detected. Infection with M. tuberculosis is unlikely. A single negative result does not exclude infection with M. tuberculosis. In patients at high risk for M.tuberculosis infection, a second test should be considered in accordance with the 2017 ATS/IDSA/CDC Clinical Practice Guidelines for Diagnosis of Tuberculosis in Adults and Children [Lewinsohn DM et. al. Clin. Infect. Dis. 2017;64(2):111-115]. The reference range for the 'TB1 Ag minus Nil Result' and 'TB2 Ag minus Nil Result' is an Interferon-gamma level <0.35 IU/mL. TB1 Ag minus Nil 0.01 IU/mL [facility]/PATH [place] RESTREPO TB2 Ag minus Nil 0.00 IU/mL [facility] Mitogen minus Nil 9.05 IU/mL [facility] LAB MED/PATH [place] Nil Result 0.01 IU/mL [facility] LAB [facility]/PATH [place] Blood 09/10/2018 3:14 PM EDT 09/10/2018 3:23 PM EDT Nereyda Montoya MD LAB BLOOD ORDERABLE S Final Result [facility] LAB MED/PATH [address] [place] [address] * (ABNORMAL) CBC and differential (09/10/2018 3:14 PM EDT) [facility] WBC 6.64 3.40 - 11.20 K/uL [facility] RBC 4.31 3.80 - 4.80 M/uL [facility] HGB 12.8 12.0 - 15.0 g/dL [facility] HCT 38.1 36.0 - 46.0 % [facility] PLT 233 130 - 400 K/uL [facility] MCV 88.4 79.0 - 98.0 fL [facility] MCH 29.7 27.0 - 34.8 pg [facility] MCHC 33.6 31.5 - 36.0 g/dL [facility] RDW 12.4 10.8 - 14.6 % [facility] MPV 8.8(L) 9.4 - 12.4 fl [facility] NRBC 0.00 0.00 /100 WBCs [facility] ABSOLUTE NRBC 0.00 0.00 K/uL [facility] DIFF METHOD Auto [facility] NEUTS 50.6 45.30 - 77.70 % [facility] LYMPHS 38.6 12.30 - 39.70 % [facility] MONOS 7.7 4.10 - 12.80 % [facility] EOS 2.0 0 - 7.2 % [facility] BASOS 0.8 0 - 2.80 % [facility] Granulocytes, immature (%) 0.3 0.0 - 0.9 % [facility] ABSOLUTE NEUTS 3.37 1.40 - 7.70 K/uL [facility] ABSOLUTE LYMPHS 2.56 0.60 - 3.20 K/uL [facility] ABSOLUTE MONOS 0.51 0.11 - 0.59 K/uL [facility] ABSOLUTE EOS 0.13 0.01 - 0.50 K/uL [facility] ABSOLUTE BASOS 0.05 0.00 - 0.08 K/uL [facility] Granulocytes, immature 0.02 0.00 - 0.05 K/uL [facility] Blood 09/10/2018 3:14 PM EDT 09/10/2018 3:23 PM EDT us Nereyda Montoya MD LAB BLOOD ORDERABLE S Final Result [facility] [address] [place] [address] documented in this encounter Visit Diagnoses Diagnosis Psoriasis vulgaris- Primary Other psoriasis Encounter for long-term (current) use of other medications documented in this encounter Care Teams Quality Control Engineering Technician Relationship Specialty Start Date End Date Dahlia Espino MD [address] [place] [address] PCP - General Pulmonary Disease 05/28/17 12/17/18 Mellissa Dangelo MD, MPH [address] [facility] [address] [place] [address] PCP - General Family Medicine 12/18/18 02/06/21 Pcp, Unknown PCP - General 02/07/21 08/04/21 Franki Chappell MD [address] [place] [address] PCP - General 08/05/21 Roxana Lopez MD [address] [place] [address] [email or web address] Historical LMR Provider 04/11/17 Roxanna Carrington NP [address] [place] [address] Historical LMR Provider 04/11/17 2 Adrianne Shah MD [address] [place] [phone] Historical LMR Provider 04/11/17 2 documented as of this encounter Additional Source Comments The information contained in this document represents components of the legal health record. It is not the complete legal health record.[facility]
--- OUTSIDE RECORDS SUMMARY | 2025-03-02 12:21 | XMS_ITS | Clinical Summary ---
Author Organization [facility] Address [address] [place] [address] Phone Care Team Providers Care Manager Community Name Role Phone Roxana Lopez MD Unavailable [phone] Franki Chappell MD Primary Care Provide r Allergies Active Allergy Reactions Criticality Noted Date Comments Sulfanilamide 06/30/2021 Topical sulfa burned pt face when applied Medications amLODIPine (NORVASC) 5 MG tablet Take 2.5 mg by mouth daily. Active lisinopril (PRINIVIL,ZESTRIL ) 20 MG tablet Take 20 mg by mouth daily. Active vitamin E 400 unit Cap Take by mouth daily. Active therapeutic multivitamin tablet Take 1 tablet by mouth daily. Active cyclosporine (RESTASIS) 0.05 % suspension Place 1 drop into each eye 2 (two) times a day. Active cholecalciferol, vitamin D3, (VITAMIN D3 ORAL) Take by mouth daily. Active loperamide HCl (IMODIUM A-D ORAL) Take by mouth as needed. Active naproxen sodium (ALEVE ORAL) Take by mouth as needed. Active secukinumab (COSENTYX) 150 mg/mL subcutaneous injection syringe Inject under the skin once. Active psyllium husk (METAMUCIL ORAL) Take by mouth. Active triamcinolone acetonide 0.1 % ointmentIndicatio ns:Skin irritation Apply topically 2 (two) times a day. Use a pea sized amount. 30 g 1 2 Active bisoprolol-hydroC HLOROthiazide (ZIAC) 5-6.25 mg per tablet 2 Active naproxen (EC NAPROSYN) 500 MG EC tablet Take 1 tablet (500 mg total) by mouth 2 (two) times a day with meals. 20 tablet 2 Active mv-mn/B.coag/B.rose btilis/inulin (CULTURELLE PROBIOTIC-MULTIVI T ORAL) Take by mouth. Activ e estradioL (YUVAFEM) 10 mcg Tab 3 Active fesoterodine (TOVIAZ) 4 mg Tb24 Take 1 tablet by mouth every morning. 3 Active loratadine 10 mg Cap Take 10 mg by mouth. 3 Active fluticasone propionate (FLONASE ALLERGY RELIEF) 50 mcg/actuation nasal spray by Nasal route. 3 Active vitamin E 100 unit/0.25 mL Drop Take by mouth. 01/13/20 2 2 Active PULMICORT FLEXHALER 90 mcg/actuation inhaler inhale 1 puff by mouth every 12 hours 3 Active albuterol 90 mcg/actuation inhaler INHALE 2 PUFFS BY MOUTH EVERY 4 TO 6 HOURS NEEDED FOR SHORTNESS OF BREATH OR WHEEZING 3 Active Active Problems Problem Noted Date Diagnosed Date Obesity 10/19/2017 Hypertension 05/28/2017 Urinary frequency 05/28/2017 Assessment & Plan (05/26/2021 2:40 PM EST): Notes new nocturia with inability to void more than a small amount on multiple occasions. Assessment & Plan (11/11/2020 10:12 AM EDT): Discussed limiting PO intake in the evenings. Handout given for bladder training exercises. Assessment & Plan (05/28/2017 11:24 AM EST): Discussed limiting bladder irritants and decreasing water intake particularly after 6pm to help with urinary symptoms. Reviewed that surgery will not address frequency issues. Cystocele without uterine prolapse 05/28/2017 Overview (06/30/2021): #5 ring with support Assessment & Plan (12/12/2021 11:13 AM EDT): Given increasingly bothersome symptoms particularly around urinary frequency, reasonable to refer to Urogyn for surgical consult. Irene has been seen by Urogyn in the past (10 years ago) and planned surgery then got nervous and cancelled. We discussed that reconsideration for surgery is reasonable particularly given increasing self-imposed activity limitations due to bladder concerns. Assessment & Plan (06/02/2021 7:09 PM EST): Overall, prolapse is well supported by dish with incontinence knob. Trial of other shapes (ring with incontinence knob and ring with support + incontinence knob) was unsuccessful. 2 3/4 dish replaced, will order 3 dish and have pt return to office. We also discussed surgery as an alternative to pessary use - she may consider this in the future. Assessment & Plan (05/26/2021 2:38 PM EST): Changed to new shape/size from #4 ring with support as prolapse continues to protrude around current pessary. New pessary well tolerated in the office. Assessment & Plan (04/16/2018 3:52 PM EDT): Treated for BV at last visit. Symptoms (discharge/odor) have resolved with 1 week break from pessary + Metrogel. Pessary replaced without complication. Size changed from #5 to #4 ring with support as Irene reports bothersome urinary incontinence with larger size. She would prefer that her prolapse be less supported if it means she doesn't leak urine. Assessment & Plan (05/28/2017 11:23 AM EST): Pessary removed and pt refitted with #5 ring with support. Resolved Problems Problem Noted Date Diagnosed Date Resolved Date Tobacco dependence syndrome 10/19/2017 02/22/2018 Immunizations Immunization Administration Dates Next Due COVID-19 (Pre-04/16) Pfizer Vaccine, mRNA, PF ,08/31/2020 Influenza High-Dose Quadrivalent Preservative Fr ee IM 03/30/2020 Influenza High-Dose Trivalent Preservative Free IM 03/12/2019,03/31/2018 Influenza Quadrivalent Adjuvanted Preservative F ree IM 04/04/2022,04/07/2021 Influenza Quadrivalent Preservative Free IM 03/27 Influenza Trivalent Adjuvanted Preservative free IM 04/01/2017,03/19/2016 Family History Medical History Relation Comments CV disease Father 2 Hypertension Father 2 CV disease Mother 2 Hypertension Mother 2 Relation Status Comments Father 1 Father 2 Mother 1 Mother 2 Social History Tobacco Use Types Packs/Day Years Used Date Smoking Tobacco: Former Cigarettes Q uit: 02/2017 Smokeless Tobacco: Never Tobacco Cessation:Counseling Given: Not Answered Alcohol Use Standard Drinks/Week Comments No 0 [...] file Not on file Not on file Last Filed Vital Signs Vital Sign Reading Time Taken Comments Blood Pressure 156/78 06/29/2023 11:35 AM EST Pulse 66 06/29/2023 11:35 AM EST Temperature 37 C (98.6 F) 06/29/2023 11:35 AM EST Respiratory Rate 18 06/29/2023 11:35 AM EST Oxygen Saturation 97% 06/29/2023 11:35 AM EST Inhaled Oxygen Concentration - - Weight 73.5 kg (162 lb) 06/29/2023 11:35 AM EST Height 157.5 cm (5' 2 ) 06/29/2023 11:35 AM EST Body Mass Index 29.63 06/29/2023 11:35 AM EST Plan of Treatment Health Maintenance Due Date Last Done Comments Adult Td,Tdap Booster 1948 LIPID PANEL 1948 DEPRESSION SCREENING 1960 SMOKING Hx and SMOKELESS TOBACCO SCREENING 1961 HEPATITIS C SCREENING 1966 PNEUMOCOCCAL VACCINES (50+ years) (1 of 1 - PCV) 1998 ZOSTER VACCINES (1 of 2) 1998 OSTEOPOROSIS SCREENING INITIAL (ONE-TIME) 2013 CREATININE LEVEL 11/24/2020 11/25/2019 POTASSIUM LEVEL 11/24/2020 11/25/2019 RSV VACCINE (1 - 1-dose 75+ series) 2023 BLOOD PRESSURE 12/28/2023 06/29/2023 INFLUENZA VACCINE (#1) 2025 3, 04/04/2022, 04/07/2021, Additional history exists COVID-19 VACCINE (2024- season) 2025 06/01/2023, 04/26/2022, 11/01/2021, Additional history exists HEPATITIS A VACCINES Aged Out No long er eligible based on patient's age to complete this topic HIB VACCINES Aged Out No longer eligi ble based on patient's age to complete this topic MENINGOCOCCAL VACCINES (ACWY) Aged Out No longer eligible based on patient's age to complete this topic MENINGOCOCCAL VACCINES (B) Aged Out N o longer eligible based on patient's age to complete this topic Medical Devices Not on file Procedures Procedure Name Priority Date/Time Associated Diagnosis Comments COMPREHENSIVE METABOLIC PANEL Routine 11/25/2019 8:48 AM EDT Type 2 diabetes mellitus without complication, 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 from Last 3 Months or Most Recently Relevant to Health Maintenance Results * (ABNORMAL) Comprehensive metabolic panel (11/25/2019 8:48 AM EDT) SODIUM 138 133 - 146 mmol/L [facility] POTASSIUM 4.2 3.3 - 5.1 mmol/L [facility] CHLORIDE 97 96 - 108 mmol/L [facility] CO2 30 21 - 35 mmol/L [facility] BUN 14 6 - 19 mg/dL [facility] CREATININE 0.60 0.5 - 1.5 mg/dL [facility] GLUCOSE 129(H) 70 - 99 mg/dL [facility] ALBUMIN 4.3 3.9 - 4.8 g/dL [facility] TOTAL PROTEIN 7.7 6.5 - 8.0 g/dL [facility] CALCIUM 10.1 8.4 - 10.3 mg/dL [facility] ALKALINE PHOSPHATASE 46 39 - 117 U/L [facility] TOTAL BILIRUBIN 0.5 0.0 - 1.2 mg/dL [facility] AST 36 0 - 37 U/L [facility] ALT 52(H) 0 - 40 U/L [facility] GLOBULIN 3.4 1 - 4.8 g/dL [facility] EGFR 92 >59 mL/min/1.7 3m2 [facility] Comment:If patient is black, multiply result by 1.159. Estimated glomerular filtration rate calculated using the CKD-EPI equation. ANION GAP 15 10 - 20 mmol/L [facility] Blood 11/25/2019 8:48 AM EDT 11/25/2019 10:35 AM EDT us Franki Chappell MD LAB BLOOD ORDERABLES nal Result [facility] [address] [place] [address] from Last 3 Months or Most Recently Relevant to Health Maintenance Insurance [place] [employer] SUPPLEMENT MEDICARE PART A & B [facility] [employer] MEDEX SUPPLEMENT MEDICARE PART A & B [facility] [place] [employer] MEDEX SUPPLEMENT MEDICARE PART A & B [employer] MEDEX SUPPLEMENT MEDICARE PART A & B [employer] MEDEX SUPPLEMENT MEDICARE PART A & [place] [address] [place] [address] [employer] MEDEX SUPPLEMENT MEDICARE PART A & B [place] [employer] SUPPLEMENT MEDICARE PART A & B [employer] MEDEX SUPPLEMENT MEDICARE PART A & B [facility] BLUE CROSS MEDEX SUPPLEMENT MEDICARE PART A & B [facility] Care Teams Manager Community Relationship Specialty Start Date End Date Franki Chappell MD [address] [place] [address] PCP - General 08/05/21 Roxana Lopez MD [address] [place] [address], [facility] [address] [place] [address] [email or web address] Historical LMR Provider 04/11/17 Additional Source Comments The information contained in this document represents components of the legal health record. It is not the complete legal health record.[facility]
--- OUTSIDE RECORDS SUMMARY | 2025-03-02 12:21 | XMS_ITS | Clinical Summary ---
Author Organization 175 [facility] Address [address] [place] [address] Phone Care Team Providers Care University Lecturer Name Role Phone Franki Chappell MD Primary Care Provider [phone] Allergies Active Allergy Reactions Criticality Noted Date [...] grams of Tylenol per day. 30 tablet Active oxyCODONE (ROXICODONE) 5 mg immediate release tablet Take 1 tablet (5 mg total) by mouth every 6 (six) hours if needed for severe pain. Max Daily Amount: 20 mg 5 each Active Hospital, Clinic, or Other Facility Administered Medication Ordered Dose Route Frequency Start Date End Date Status triamcinolone acetonide (KENALOG-40) 40 mg/mL injection 40 mgIndications:Radial styloid tenosynovitis 40 mg IAtc Once PRN Procedure 02/10/2025 02/10/2025 Ended Active Problems Problem Noted Date Diagnosed Date Radial styloid tenosynovitis 02/12/2025 Carpal tunnel syndrome of left wrist 11/12/2024 Bilateral carpal tunnel syndrome 05/20/2024 Right carpal tunnel syndrome 05/20/2024 Encounters Date Type Department Care Team Description 02/18/2025 Telephone Orthopedic Surgery [facility] [address] [facility] [place] [address] [place] [phone] Maribell Hunter MD 02/13/2025 Telephone Orthopedic Surgery [facility] 250 175 [facility] [place] [address] [place] [phone] Maribell Hunter MD 02/10/2025 9:45 AM EDT Office Visit Orthopedic [facility] 175 [facility] [place] [address] [place] [phone] Maribell Hunter MD Carpal tunnel syndrome of left wrist (Primary Dx); Radial styloid tenosynovitis from Last 3 Months Surgical History Surgery [...] - - Weight 74.8 kg (165 lb) 02/10/2025 9:49 AM EDT Height 157.5 cm (5' 2 ) 02/10/2025 9:49 AM EDT Body Mass Index 30.18 02/10/2025 9:49 AM EDT Plan of Treatment Upcoming Encounters Date Type Department Care Team (Latest Contact Info) Description 04/08/2025 1:30 PM EDT Hospital Encounter [facility] Main OR [address] [place] [phone] Maribell Hunter MD [address] [phone] 04/08/2025 1:30 PM EDT - 04/08/2025 3:[address] [facility] Main [place] [address] [place] [phone] Maribell Hunter MD [address] [phone] RELEASE CARPAL TUNNEL ENDOSCOPIC- LEFT [[id number] (CPT )] 04/17/2025 10:45 AM EDT Office Visit Orthopedic Surgery - [place] [address] [phone] Claudette Gauthier PA 174 [facility] 140 [place] [address] Scheduled Procedures Name Priority Associated Diagnoses Date/Ti me RELEASE CARPAL TUNNEL ENDOSCOPIC Carpal tunnel syndrome of left wrist 04/08/2025 1:30 PM EDT Health Maintenance Due Date Last [...] Depression Screening 06/25/2024 COVID-19 Vaccine ( season) 2025 03/03/2024, 06/01/2023, 04/26/2022, Additional history exists Influenza [...] Procedure Name Priority Date/Time Associated Diagnosis Comments KS INJECTION SINGLE TENDON SHEATH OR LIGAMENT APONEUROSIS Routine 02/10/2025 9:45 AM EDT Radial styloid tenosynovitis from Last 3 Months Results * KS INJECTION SINGLE TENDON SHEATH OR LIGAMENT APONEUROSIS (02/10/2025 9:45 AM EDT) Maribell Luke MD - 02/10/2025 9:45 AM EDT Maribell Hunter MD 02/12/2025 4:54 PM Hand / UE Inj/Asp: R extensor compartment 1 for de Quervain's tenosynovitis Indications: pain Details: 25 G needle Medications: 40 mg triamcinolone acetonide 40 mg/mL The skin was prepped over the first dorsal compartment with Betadine alcohol. The skin was anesthetized with a small wheal of 1% lidocaine with epinephrine. After that had a chance to take effect we then prepped the skin again and then I injected 1 cc of 40 mg of Kenalog in the first dorsal compartment. Patient tolerated this well. A bandage was applied. Informed Consent: Laterality: Right Relevant images/test results available and reviewed: yes Health status cleared: Yes Procedure/treatment, purpose, treatment alternatives, risks/potential complications and benefits explained: yes Patient questions answered: yes Patient agrees, verbalizes understanding, and wants to proceed: yes Consent given by: Patient Pre-procedure timeout performed: yes Maribell Hunter MD IN CLINIC/BEDSIDE ORDERABLES Final Result from Last 3 [place] [id number] MEDICARE [place] - [place] [facility] Advance Directives * Full Code [...] currently active code status orders. Care Teams University Lecturer Relationship Specialty Start Date End Date Franki Chappell MD PCP - General Family Medicine 05/20/24
--- OUTSIDE RECORDS SUMMARY | 2025-03-02 12:21 | XMS_ITS | Encounter Summary ---
Author Organization [facility] Address [address] [facility] [address] [place] [address] Phone Care Team Providers Care Pipelines Supervisor Name Role Phone Roxana Lopez MD Unavailable Roxanna Carrington NP Unavailable Adrianne Shah MD Unavailable [phone] Mellissa Dangelo MD, MPH Primary Care Provid er Pcp, Unknown Primary Care Provider Unavailabl e Franki Chappell MD Primary Care Provide r Encounter Details Date Type Department Care Team (Late st Contact Info) Description 11/25/2019 Transcribe Orders [facility] [address] [place] [address] Franki Chappell MD [address] [place] [address] Type 2 diabetes mellitus without complication, unspecified whether half-way insulin use (Primary Dx) Social History Tobacco Use Types [...] documented as of this encounter Results * Microalbumin/creatinine ratio, random urine (11/26/2019 10:27 AM EDT) URINE MICROALBUMIN <1.2 0 - 2.3 mg/dL [facility] URINE CREATININE 54 mg/dL [facility] MICROALB/CRE RATIO NOT CALCULATED 0 - 20 mg/g Cre [facility] Comment:due to Microalbumin <1.2 Urine (Urine) 11/26/2019 10: 27 AM EDT 11/26/2019 12:13 PM EDT us Franki Chappell MD URINE ORDERABLES Final Result [address] [address] * (ABNORMAL) Hemoglobin A1c (11/25/2019 8:48 AM EDT) Pathologist [facility] HEMOGLOBIN A1C 5.9(H) 4.3 - 5.8 % [facility] Blood 11/25/2019 8:48 AM EDT 11/25/2019 10:35 AM EDT us Franki Chappell MD LAB BLOOD ORDERABLES Fi nal Result Performing Organization Address City/[facility]/ZIP Co de Phone Number [address] [address] * (ABNORMAL) Comprehensive metabolic panel (11/25/2019 8:48 AM EDT) Pathologist [facility] SODIUM 138 133 - 146 mmol/L [facility] POTASSIUM 4.2 3.3 - 5.1 mmol/L [facility] CHLORIDE 97 96 - 108 mmol/L [facility] CO2 30 21 - 35 mmol/L [facility] BUN 14 6 - 19 mg/dL [facility] CREATININE 0.60 0.5 - 1.5 mg/dL [facility] GLUCOSE 129(H) 70 - 99 mg/dL [facility] ALBUMIN 4.3 3.9 - 4.8 g/dL [facility] TOTAL PROTEIN 7.7 6.5 - 8.0 g/dL [facility] CALCIUM 10.1 8.4 - 10.3 mg/dL [facility] ALKALINE PHOSPHATASE 46 39 - 117 U/L [facility] TOTAL BILIRUBIN 0.5 0.0 - 1.2 mg/dL [facility] AST 36 0 - 37 U/L [facility] ALT 52(H) 0 - 40 U/L [facility] GLOBULIN 3.4 1 - 4.8 g/dL [facility] EGFR 92 >59 mL/min/1.7 3m2 [facility] Comment:If patient is black, multiply result by 1.159. Estimated glomerular filtration rate calculated using the CKD-EPI equation. ANION GAP 15 10 - 20 mmol/L [facility] Blood 11/25/2019 8:48 AM EDT 11/25/2019 10:35 AM EDT us Franki Chappell MD LAB BLOOD ORDERABLES Fi nal Result Performing Organization Address City/State/[facility] Co de Phone Number [facility] [address] [place] [address] documented in this encounter Visit Diagnoses Diagnosis Type 2 diabetes mellitus without complication, unspecified whether half-way insulin use- Primary documented in this encounter Care Teams Pipelines Supervisor Relationship Specialty Start Date End Date Mellissa Dangelo MD, MPH [address] [place] [address] [address] [place] [address] [email or web address] PCP - General Family Medicine 12/18/18 02/06/21 Pcp, Unknown PCP - General 02/07/21 08/04/21 Franki Chappell MD [address] [place] [address] PCP - General 08/05/21 Roxana Lopez MD [address] [place] [address], [address] [place] [address] [email or web address] Historical LMR Provider 04/11/17 Roxanna Carrington, DIANNE [address] [place] [address] Historical LMR Provider 04/11/17 2 Adrianne Shah MD [address] [place] [phone] Historical LMR Provider 04/11/17 2 documented as of this encounter Additional Source Comments The information contained in this document represents components of the legal health record. It is not the complete legal health record.[facility]
--- OUTSIDE RECORDS SUMMARY | 2025-03-02 12:21 | XMS_ITS | Encounter Summary ---
Author Organization [facility] Address [address] [address] Phone Care Team Providers Care Architect Intern Name Role Phone Roxana Lopez MD Unavailable [phone] Roxanna Carrington NP Unavailable Adrianne Shah MD Unavailable [phone] Dahlia Espino MD Primary Care Provider Mellissa Dangelo MD, MPH Primary Care Provid er Pcp, Unknown Primary Care Provider Unavailabl e Franki Chappell MD Primary Care Provide r Encounter Details Date Type Department Care Team (Latest Contact Info) Description 07/31/2017 Transcribe Orders [facility] [address] [place] [address] Nereyda Montoya MD [address] [facility] [address] [place] [address] Need for prophylactic chemotherapy (Primary Dx) Social History Tobacco Use Types [...] of this encounter Results * Quantiferon-TB Gold (07/31/2017 10:48 AM EST) Interferon-gamma (TB antigen) Negative Negative [facility] Comment: (NOTE) No interferon-gamma response to M. tuberculosis antigens was detected. Infection with M. tuberculosis is unlikely. A negative result alone does not exclude infection with M. tuberculosis. For detailed information regarding test interpretation see: [email or web address]/test-catalog/ Clinical+and+Interpretive/60089 TB AG - NIL RESULT 0.00 IU/mL [facility] Interferon-gamma (mitogen) 8.38 IU/mL [facility] Interferon-gamma (NIL) 0.02 IU/mL [facility] Blood 07/31/2017 10:4 8 AM EST 07/31/2017 10:53 AM EST us Nereyda Montoya MD LAB BLOOD ORDERABLE S Final Result [facility] [address] [place] [address] documented in this encounter Visit Diagnoses Diagnosis Need for prophylactic chemotherapy- Primary Need for other prophylactic chemotherapy documented in this encounter Care Teams Architect Intern Relationship Specialty Start Date End Date Dahlia Espino MD [address] [place] [address] [address] [place] [address] PCP - General Pulmonary Disease 05/28/17 12/17/18 Mellissa Dangelo MD, MPH [address] [facility] [address] [place] [address] [email or web address] PCP - General Family Medicine 12/18/18 02/06/21 Pcp, Unknown PCP - General 02/07/21 08/04/21 Franki Chappell MD [address] [place] [address] PCP - General 08/05/21 Roxana Lopez MD [address] [place] [address] [address] [place] [address] [email or web address] Historical LMR Provider 04/11/17 Roxanna Carrington NP [address] [place] [address] Historical LMR Provider 04/11/17 2 Adrianne Shah MD [address] [place] [phone] Historical LMR Provider 04/11/17 2 documented as of this encounter Additional Source Comments The information contained in this document represents components of the legal health record. It is not the complete legal health record.[facility]
== END 2025-03-02 10:56 | disposition home or self-care (01) ==
LOC: HO.HCS 10:24
PROVIDERS: PCP Family Medicine; Visit Provider Internal Medicine
DX: R07.89 Other chest pain (principal); R94.39 Abnormal result of other cardiovascular function study; I10 Essential (primary) hypertension; E11.8 Type 2 diabetes mellitus with unspecified complications
CPT/HCPCS: 99214; G2211

== ENCOUNTER → 2025-03-02 10:23 | Outpatient (BNVA) | payer MEDICARE, SELFPAY | PROVIDERS: PCP Family Medicine; Visit Provider Internal Medicine | DX: R07.89 Other chest pain (principal); R94.39 Abnormal result of other cardiovascular function study; I10 Essential (primary) hypertension; E11.9 Type 2 diabetes mellitus without complications | CPT/HCPCS: 99212 ==

== ENCOUNTER → 2025-04-02 10:05 | Outpatient (REF) | payer MEDICARE, SELFPAY ==
--- NOTE | 2025-04-02 10:07 | CA_ITS ---
Transthoracic Echocardiogram Patient (Last, First, Middle): Irene Paulino, Gender: F Date of : 1950 Age: 74 Procedure Date: 04/02/2025 Procedure Type: Transthoracic Echocardiogram Location: OP Height: 154. cm Weight: 75.3 kg BSA: 1.74 m2 Heart Rate: 57 bpm BP: 140 / 70 mmHg Emergency Medicine Specialist: CHETNA Goldman MD: Keanu Alatorre MD Fiber Technician: Christophe Marquez MD Symptoms: R06.02 - Shortness of breath Study Quality: Adequate ECG Rhythm: Bradycardia Conclusions: - 1. Normal LV ejection fraction of 60 65% with grade 2 diastolic dysfunction 2. Calcific aortic and mitral valve changes noted with normal cardiac valvular Doppler 3. Normal RV systolic pressure 4. Small pericardial effusion Findings Left Ventricle Normal left ventricular size, thickness, and systolic function. The visually estimated ejection fraction is between 60-65%. Spectral Doppler is indicative of a pseudonormal filling pattern. E/E prime ratio is >15, consistent with elevated filling pressures. Evidence suggests grade II (moderate) diastolic dysfunction. Right Ventricle Normal right ventricular cavity size and systolic function. Atria The left atrium is likely dilated. There is no evidence of interatrial shunt. The right atrium is normal in size. Aortic Valve There is mild calcification of the aortic valve. There is no aortic valve stenosis. There is no aortic valve regurgitation. Mitral Valve There is mild anterior and posterior mitral leaflet thickening. There is mild mitral valve regurgitation. There is no mitral valve stenosis. Pulmonic Valve The pulmonic valve was not well visualized. Tricuspid Valve Likely normal tricuspid valve structure and function. There is trace tricuspid valve regurgitation. The right ventricular systolic pressure is normal. The right ventricular systolic pressure is 20 mmHg. Normal right atrial pressure. There is no evidence of pulmonary hypertension. Great Vessels All visible segments of the aorta are normal in size. The pulmonary artery was not well visualized. There is no dilatation of the ascending aorta measuring 3.40 cm. Venous The inferior vena cava is normal in size and collapses greater than 50% with inspiration. Pericardium/Pleural There is a small circumferential pericardial effusion. Prior Study Comparison No prior study available for comparison. Measurements 2D Linear Measurements IVSd: 0.79 0.6-0.9/0.6-1.0 cm LVIDd: 4.61 3.9-5.3/4.2-5.9 cm LVIDd Index: 2.65 2.4-3.2/2.2-3.1 cm/m2 LVIDs: 3.14 2.0-3.6 cm LVPWd: 0.84 0.7-1.1 cm LA Diam: 4.90 2.7-3.8/3.0-4.0 cm LAIDs Index: 2.82 1.5-2.3 cm/m2 LV Mass: 150.43 67-162/88-224 g LV Mass Index: 86.46 43-95/49-115 g/m2 LVOT Diam: 2.00 3.0+(-)1.3 cm 2D Systolic Function EF 4C: 56.00 >55% EF 2C: 65.20 >55% EF BiP: 60.40 >55% Mitral Valve MV Pk E: 0.93 MV PK A: 0.83 MV Decel Time: 247.00 E/A: 1.10 E'Lateral: 5.61 E'Medial: 5.34 E/E' Med: 17.30 E/E' Lat: 16.50 PHT: 72.00 MVA PHT: 3.06 Decel [place]: 3.75 Aortic Valve AoV Pk Noe: 1.48 AoV Mn Noe: 1.07 AoV VTI: 0.36 AoV Pk Grad: 9.00 Aov Mn Grad: 5.00 SKY Cont.VTI: 2.35 LVOT LVOT Pk Noe: 1.15 LVOT Mn Noe: 0.73 LVOT VTI: 0.27 LVOT Pk Grad: 5.00 LVOT Mn Grad: 3.00 LVOT Diam: 2.00 LVOT Area: 3.14 Diastolic Function MV Pk E: 0.93 MV Pk A: 0.83 E/A: 1.10 E'Medial: 5.34 E/E' Med: 17.30 E' Laterial: 5.61 E/E' Lat: 16.50 Right Ventricle TAPSE (mm): 20.80 TVS' Noe: 11.20 Tricuspid Valve TR Pk Noe: 2.09 TR Pk Grad: 17.00 RA Press: 3.00 RVSP: 20.00 Great Vessels Aorta Sinus of Valsalva: 2.70 2.0-3.5 cm Ao Asc: 3.40 2.1-3.4 cm Ao Arch: 2.70 Pulmonary Veins Pulm Vein S/D 1.00 Pulmonary Valve PV Pk Noe: 0.94 Peak PV Grad: 4.00 Updated in Other Vendor System with Status of Final Christophe Marquez MD electronically signed on 04/03/2025 1:13:53 PM with status of Final
== END ==
LOC: HO.CARD 10:05
PROVIDERS: PCP Family Medicine; Visit Provider Internal Medicine
DX: R06.02 Shortness of breath (principal)
CPT/HCPCS: 93306

== ENCOUNTER → 2025-04-02 10:07 | Outpatient (BNV) | payer MEDICARE, SELFPAY | PROVIDERS: PCP Family Medicine; Visit Provider Internal Medicine Cardiovascular Disease | DX: I35.8 Other nonrheumatic aortic valve disorders (principal); I34.81 Nonrheumatic mitral (valve) annulus calcification; I31.39 Other pericardial effusion (noninflammatory) | CPT/HCPCS: 93306 ==

== ENCOUNTER 2025-04-15 11:17 | Outpatient (AMB) | payer MEDICARE, SELFPAY ==
--- NOTE | 2025-04-15 11:59 | MHC.PC.OV ---
Vital Signs 04/15/25 12:04 Height 5 ft 2 in Weight 168 lb 6 oz BMI 30.8 BP 124/66 Blood Pressure Location Rt brachial Position Sitting Respiration 16 Pulse 62 Pulse Source Pulse Oximeter Temp 98 F Temp Source Oral Pulse Oximetry (%) 96 Oxygen Delivery Method Room Air Intake Visit Reasons: F/U stress test and A1C Intake Note: Patient is scheduled to follow up on her stress test and a1c results Manager Medical Writing Required: No Allergies sulfacetamide Adverse Reaction (Intermediate, Verified 04/15/25 12:02) Rash clindamycin Adverse Reaction (Mild, Verified 04/15/25 12:02) Diarrhea Medication List - Last Reconciled 04/15/25 by Franki Chappell MD amlodipine 5 mg PO DAILY bisoprolol-hydrochlorothiazide 2.5-6.25 mg 2 tabs PO DAILY 90 days blood sugar diagnostic (FreeStyle Lite Strips) DX: E11.9, test blood sugar once a day, 90 days blood-glucose meter (FreeStyle Lite Meter kit) DX: E11.9, test blood sugar once a day, duration 999 days cholecalciferol (vitamin D3) 50 mcg PO DAILY clotrimazole-betamethasone 1-0.05 % 1 appl topical BID 2 weeks cyclosporine 0.05% (Restasis) 1 drp ophthalmic (eye) Q12H fluticasone propionate 50 mcg/actuation (Flonase Allergy Relief) 1 spray intranasal .nightly 30 days lactobacillus combination no.9 (Adult 50 Plus Probiotic) 4,000 mmu cells PO DAILY lancets (FreeStyle Lancets) As directed, 90 days lisinopril 20 mg PO DAILY loratadine (Allergy Relief (loratadine)) 10 mg PO DAILY metformin ER 500 mg PO QPM 90 days multivitamin (Daily Multi-Vitamin tablet) 1 tab PO DAILY 90 days roflumilast 0.3% (Zoryve) appl topical BID PRN vibegron (Gemtesa) mg PO DAILY wheat dextrin (Benefiber Sugar Free (dextrin)) 1 tab PO DAILY Tobacco use date assessed: 01/12/25 Dental Screening Dental Screen Date: 01/12/25 HPI F/U stress test and A1C HPI Details 74 y/o female presents to f/u diabetes, stress test. Prior A1c 01/12/25 6.5%. A1c today 6.5%. Stress test 01/28/25 showed: NM/NM cardiolite stress test IMPRESSION: 1. Myocardial perfusion imaging study shows normal myocardial perfusion. 2. Gated LVEF is 57% during stress and 65% during rest. 3. Transient ischemic dilatation not present. BP today 124/66, 62p. She is on lisinopril 20mg, amlodipine 5mg daily, bisoprolol-HCTZ 2.5-6.25mg daily. [facility] Medical History (Updated 02/03/25 @ 11:25 by Lucrecia Sanchez, [facility]) Transaminitis Allergic rhinitis Diabetes type 2, uncontrolled HTN (hypertension) Surgical History Carpal tunnel syndrome of right wrist Hx of colonoscopy History of hysterectomy History of oral surgery Family History Father Myocardial infarction Hypertension Mother Hypertension CVD (cardiovascular disease) Stroke TIA (transient ischemic attack) Social History Housing: House Alcohol intake: former Comment: Hasnt drank in 7 year Patient Tobacco Use Status: Former Tobacco user e-Cigarette/Vaping Use: Never Used Second Hand Smoke Exposure: No service: No Current occupational status: retired Current occupational exposures/hazards: No Cognitive needs: No Hearing needs: No Vision needs: No Questionnaire Thrive Questionnaire Date Thrive assessed: 08/11/24 I am a: Patient What is your living situation today?: I have a steady place to live Within the past 12 months, did the food you bought not last and you didn't have the money to get more?: Never true Within the past 12 months, did you worry whether your food would run out before you got money to buy more?: Never true Do you have trouble paying for medicines?: No Do you have trouble getting transportation to medical appointments?: No Do you have trouble paying your heating and electricity bill?: No Do you have trouble taking care of your child, family member or friend?: No Do you have trouble with day-to-day activities such as bathing, preparing meals, shopping, managing finances, etc.?: No Are you currently unemployed and looking for a job?: No Are you interested in more education?: No Please select the resources that you would like help with: None Currently or been in a relationship where the following occur: No concerns reported THRIVE Score: 0 AUDIT C Alcohol Use Questionnaire (AUDIT-C) 2. How many drinks containing alcohol do you have on a typical day when you are drinking?: 1 or 2 Total Score: 0 SABINO-7 AMB Questionnaire SABINO-7 Date SABINO - 7 assessed: 01/12/25 Source: Developed by Drs. Bryan Saldivar, Maddy Hilton, Nikos Brito and colleagues, with an educational harvey from [employer]. Physical exam (Primary Care) Vital Signs: Last Vital Signs Temp 98 F 04/15/25 12:04 Pulse 62 04/15/25 12:04 Resp 16 04/15/25 12:04 BP 124/66 04/15/25 12:04 Pulse Ox 96 04/15/25 12:04 Oxygen Delivery Method Room Air 04/15/25 12:04 BMI result Body Mass Index 30.8 Tobacco/Smoking Status: Tobacco use Status Tobacco use date assessed 01/12/25 04/15/25 12:08 Patient Tobacco Use Status Former Tobacco user 04/15/25 12:08 e-Cigarette/Vaping Use Never Used 04/15/25 12:08 Thrive Assessment: Date of Thrive Assessment Date Thrive assessed 08/11/24 04/15/25 12:08 Currently or been in a relationship where the following occur: No concerns reported Coding Level of Care Code Est Pt Level 4 (55374) Diagnoses Essential hypertension I10 Controlled type 2 diabetes mellitus with other specified complication, without long-term current use of insulin E11.69 Diabetes mellitus complication status: with other specified complication Diabetes mellitus prison insulin use: without prison use Immunization counseling Z71.85 Other chest pain R07.89 Chest pain type: other chest pain Coronary artery disease involving [place] coronary artery of [place] heart without angina pectoris I25.10 Associated angina: without angina Coronary Disease-Associated Artery/Lesion type: [place] artery [place] vs. transplanted heart: [place] heart Assessment & Plan Assessment & Plan (1) Essential hypertension: Code(s): I10 - Essential (primary) hypertension Category: Medical Plan: Blood pressure is controlled. Goal is less than 130/80 Continue current medications (2) Diabetes type 2, controlled: Code(s): E11.9 - Type 2 diabetes mellitus without complications Category: Medical Qualifiers: Diabetes mellitus complication status: with other specified complication Diabetes mellitus prison insulin use: without termite control servicer use Qualified Code(s): E11.69 - Type 2 diabetes mellitus with other specified complication Plan: A1c 6.5%. Good control. Goal is less than 7% Continue current medication (3) Immunization counseling: Code(s): Z71.85 - Encounter for immunization safety counseling Category: Medical Plan: Reviewed the difference between the flu shot for patient is greater than 65 verses normal dose flu shot Patient is not sure which 1 she got in will check with her pharmacy (4) Chest pain: Code(s): R07.9 - Chest pain, unspecified Category: Medical Qualifiers: Chest pain type: other chest pain Qualified Code(s): R07.89 - Other chest pain (5) CAD (coronary artery disease): Comment: cta 05/2024 Mild atherosclerotic calcified plaque is seen in the region of left brachiocephalic and right subclavian arteries Code(s): I25.10 - Atherosclerotic heart disease of [place] coronary artery without angina pectoris Category: Medical Qualifiers: Associated angina: without angina Coronary Disease-Associated Artery/Lesion type: [place] artery [place] vs. transplanted heart: [place] heart Qualified Code(s): I25.10 - Atherosclerotic heart disease of [place] coronary artery without angina pectoris Plan Patient had complained of chest pain at her last visit. History of abnormal CTA with calcifications so she was sent for stress test. Stress test suggested ischemia but the nuclear perfusion study showed no ischemia Cardiology send her for an echocardiogram which showed normal function, mild calcifications of aortic and mitral valve. Also very mild pericardial effusion but no other abnormalities. Unlikely that any of the above was causing any other discomfort. He is comfort likely secondary to cervicalgia and this has resolved. Nevertheless, patient does have significant risk factors for coronary artery disease. Cardiology saw her and recommended mitigating risk factors and watch for any symptoms. Reviewing patient's prior lab work, her LDL cholesterol is too high and recommended a goal of less than 70. Will recheck this We discussed that if LDL is too high we should use a medication. Patient understands. Maintain good blood pressure and blood sugar control. Medications: Refilled bisoprolol-hydrochlorothiazide 2.5-6.25 mg 2 tabs PO DAILY 180 tabs 3RF 90 days I10 - Essential (primary) hypertension lisinopril 20 mg PO DAILY 90 tabs 1RF amlodipine 5 mg PO DAILY 90 tabs 3RF
[2025-04-15 12:04] VITALS: BP 124/66; PULSE 62; RESP 16; TEMP 36.6; O2SAT 96; BMI 30.8
--- OUTSIDE RECORDS SUMMARY | 2025-04-15 15:26 | XMS_ITS | Clinical Summary ---
Author Organization [address] [facility] Address [address] [place] [address] Phone Care Team Providers Care Speeder Hand Name Role Phone Franki Chappell MD Primary Care Provider [phone] Allergies Active Allergy Reactions Criticality Noted Date Comments Clindamycin Rash High 02/13/2024 diarrhea Sulfa (Sulfonamide Antibiotics) Rash Medium 01/24 Medications lisinopriL (PRINIVIL,ZEST RIL) 20 mg [...] propionate (FLONASE) 50 mcg/actuation nasal spray 2 sprays 1 (one) time each day. Active multivitamin (MULTIPLE VITAMINS ORAL) 1 (one) time each day. Active bisoprolol-hyd roCHLOROthiazi de (ZIAC) 2.5-6.25 mg [...] 1 tablet (75 mg total) by mouth at bedtime. Active loperamide (IMODIUM) 2 mg capsule Take 1 capsule (2 mg total) by mouth 4 (four) times a day if needed for diarrhea. Active roflumilast (Zoryve) 0.3 % cream Apply topically if needed. Active acetaminophen (TYLENOL) 500 mg tablet Take 1 tablet (500 mg total) by mouth every 6 (six) hours if needed for moderate pain. Do not exceed 3 grams of Tylenol per day. 30 tablet 04/08/20 25 Active oxyCODONE (ROXICODONE) 5 mg immediate release tablet Take 1 tablet (5 mg total) by mouth every 6 (six) hours if needed for severe pain. Max Daily Amount: 20 mg 5 each 04/08/20 25 Active acetaminophen (TYLENOL) 500 mg tablet Take 1 tablet (500 mg total) by mouth every 6 (six) hours if needed for moderate pain. Do not exceed 3 grams of Tylenol per day. 30 tablet 10/23/19 25 025 Discontinued oxyCODONE (ROXICODONE) 5 mg immediate release tablet Take 1 tablet (5 mg total) by mouth every 6 (six) hours if needed for severe pain. Max Daily Amount: 20 mg 5 each 10/23/19 25 025 Discontinued( erapy completed) ibuprofen (ADVIL,MOTRIN) 600 mg tablet Take 1 tablet (600 mg total) by mouth every 8 (eight) hours if needed for moderate pain for up to 5 days. 15 each 04/08/20 25 025 Active Problems Problem Noted Date Diagnosed Date Radial styloid tenosynovitis 02/12/2025 Carpal tunnel syndrome of left wrist 11/12/2024 Bilateral carpal tunnel syndrome 05/20/2024 Right carpal tunnel syndrome 05/20/2024 Encounters Date Type Department Care Team Description 04/08/2025 10:33 AM EDT Anesthesia Event [facility] Main OR [address] [place] [phone] Ric Kohler MD Dasilva, John E, MD 04/08/2025 10:30 AM EDT - 04/08/2025 12:15 PM EDT Surgery [facility] Main OR [address] [place] [phone] Maribell Hunter MD ENDOSCOPIC RELEASE LEFT CARPAL TUNNEL [09949 (CPT )] 04/08/2025 9:11 AM EDT - 04/08/2025 12:25 PM EDT Hospital Encounter [facility] Main OR [address] [place] [phone] Maribell Hunter MD Discharge Disposition: Home or Self Care 02/18/2025 Telephone Orthopedic Surgery [facility] [address] [facility] [address] [place] [phone] Maribell Hunter MD 02/13/2025 Telephone Orthopedic Surgery [facility] [address] [facility] [address] [place] [phone] Maribell Hunter MD 02/10/2025 9:45 AM EDT Office Visit Orthopedic [facility] [address] [facility] [address] [place] [phone] Maribell Hunter MD Carpal tunnel syndrome of left wrist (Primary Dx); Radial styloid tenosynovitis from Last 3 Months Surgical History Surgery Date Site/Laterality Comments HYSTERECTOMY 06/25/2022 - 06/24/2023 CHOLECYSTECTOMY CARPAL TUNNEL RELEASE 10/22/2024 Right Right endoscopic carpal tunnel release OTHER SURGICAL HISTORY HAND SURGERY 04/08/2025 Left Left endoscopic carpal tunnel release Medical History Medical History Date Comments Hyperlipidemia Hypertension Diabetes mellitus (CMS/HCC V24, CMS/HCC V28) Anxiety Liver disease hx Irritable bowel syndrome Shortness of breath Arthritis regenerative dis c disease Joint pain Cataracts, bilateral Social History Tobacco Use Types Packs/Day Years Used Date Smoking Tobacco: Former Cigarettes Q uit: 2017 Smokeless Tobacco: Never Alcohol Use Standard Drinks/Week Comments Never 0 (1 standard drink = 0.6 oz pur e alcohol) Interpersonal Safety Answer Date Record ed Physical Abuse Unrecognized value 04/08/2025 Verbal Abuse Unrecognized value 04/08/2025 Comments No Sex and Gender Information Value Date Recorded Sex Assigned at Female 10/20/2024 1:19 PM EDT Legal Sex Female 11:40 AM EDT Gender Identity Female 10/22/2024 11:55 AM EDT Sexual Orientation Straight 10/22/2024 11 :55 AM EDT Obstetrics History Last Filed Vital Signs Vital Sign Reading Time Taken Comments Blood Pressure 115/56 04/08/2025 11:50 AM EDT Pulse 59 04/08/2025 11:50 AM EDT Temperature 36.7 C (98 F) 04/08/2025 11:15 AM EDT Respiratory Rate 14 04/08/2025 11:15 AM EDT Oxygen Saturation 95% 04/08/2025 11:50 AM EDT Inhaled Oxygen Concentration - - Weight 74.8 kg (165 lb) 03/24/2025 2:00 PM EDT Height 154.9 cm (5' 1 ) 03/24/2025 2:00 PM EDT Body Mass Index 31.18 03/24/2025 2:00 PM EDT Plan of Treatment Upcoming Encounters Date Type Department Care Team (Late st Contact Info) Description 04/17/2025 10:45 AM EDT Office Visit Orthopedic Surgery - [address] [place] [address] Claudette Gauthier PA [address] [place] [phone] Health Maintenance Due Date Last Done Comments [...] 04/04/2022, Additional history exists Falls Risk Assessment 04/08/2026 04/08/2025 DTaP,Tdap,and Td Vaccines (2 - Td or [...] on patient's age to complete this topic Goals Goal Patient Goal Type Associated Problems Recent Progress Patient-Stated? Author Autogenerat ed Goal Care Plan Autogenerated Problem No Maribell Hunter MD Procedures Procedure Name Priority Date/Time Associated Diagnosis Comments OK ENDOSCOPY WRIST SURGICAL WITH RELEASE TRANSVERSE CARPAL LIGAMENT 04/08/2025 10:33 AM EDT Carpal tunnel syndrome of left wrist Case Notes [employer] ECT set/tower, tourniquet, stretcher Special Needs TIME CHANGED FROM 130 TO 1030 PER ANALESE VIA TEAMS AC - lvm to c/b POCT GLUCOSE BLOOD Routine 04/08/2025 9: 32 AM EDT OK INJECTION SINGLE TENDON SHEATH OR LIGAMENT APONEUROSIS Routine 02/10/2025 9:45 AM EDT Radial styloid tenosynovitis from Last 3 Months Results * (ABNORMAL) POCT Glucose, blood (04/08/2025 9:32 AM EDT) [facility] Signature Glucose POCT 137(H) 70 - 100 mg/dL 04/08/2025 9:33 AM EDT [facility] Blood Capillary blood specimen / Unknown 04/08/2025 9:32 AM EDT 04/08/2025 9:34 AM EDT us Maribell Hunter MD LAB POINT OF CARE TE ST DOCKED DEVICE UNSOLICITED RESULTS Final Result [facility] [address] [place] [address], [place] [phone] * [place] INJECTION SINGLE TENDON SHEATH OR LIGAMENT APONEUROSIS [...] given by: Patient Pre-procedure timeout performed: yes us Maribell Hunter MD IN CLINIC/BEDSIDE ORDERABLES Final Result from Last 3 Months Additional Health Concerns Active Problems Noted Date Diagnosed Date Autogenerated Problem 04/09/2025 Insurance MEDICARE [place]ICA[place] - [place] [facility] Directives * Full Code - Default [...] currently active code status orders. Care Teams Speeder Hand Relationship Specialty Start Date End Date Franki Chappell MD [address] [place] [address] Dr Pratibha [place] PCP - General Family Medicine 05/20/24
== END 2025-04-15 12:44 | disposition home or self-care (01) ==
LOC: HO.HMCFM 11:18
PROVIDERS: PCP Family Medicine; Visit Provider Family Medicine
DX: I10 Essential (primary) hypertension (principal); E11.69 Type 2 diabetes mellitus with other specified complication; Z71.85 Encounter for immunization safety counseling; R07.89 Other chest pain; I25.10 Atherosclerotic heart disease of native coronary artery without angina pectoris

== ENCOUNTER → 2025-04-15 11:17 | Outpatient (BNVA) | payer MEDICARE, SELFPAY | PROVIDERS: PCP Family Medicine; Visit Provider Family Medicine | DX: I10 Essential (primary) hypertension (principal); R07.89 Other chest pain; E11.69 Type 2 diabetes mellitus with other specified complication; I25.10 Atherosclerotic heart disease of native coronary artery without angina pectoris; Z71.85 Encounter for immunization safety counseling | CPT/HCPCS: 83036; 99212 ==